=== PATIENT | female | born 1990 | race African-American/Black ===

== ENCOUNTER 2020-08-19 04:02 | Emergency (ER) | payer OTHER, SELFPAY ==
[2020-08-19 04:15] VITALS: BP 127/78; BP 140/82; PULSE 85; PULSE 96; RESP 16; TEMP 36.8; O2SAT 100; O2SAT 97; BMI 31.1
--- NOTE | 2020-08-19 04:37 | ED.ABDPAIN ---
HPI - Abdominal Pain General Chief Complaint: Abdominal Pain Stated Complaint: N/V X 2 WEEKS Time Seen by Provider: 08/19/20 04:23 Source: patient Mode of arrival: ambulatory History of Present Illness MD elicited complaint: abdominal pain Pertinent past history: gastritis Onset (ago): week(s) (2) Pain Consistency: constant Location: diffuse Severity: mild Pain scale (0-10): 5 Quality: cramping Exacerbating factors: eating Associated symptoms: nausea, vomiting, diarrhea, fever, chills and constipation Related Data Home Medications Medication Instructions Recorded Confirmed lorazepam 1 tab PO DAILY PRN 08/19/20 08/19/20 omeprazole 1 cap PO DAILY 08/19/20 08/19/20 Previous Rx's Medication Instructions Recorded dicyclomine 20 mg PO BID #14 tab 08/19/20 ondansetron 4 mg PO Q8H PRN 5 Days #15 tab 08/19/20 tramadol [Ultram] 50 mg PO DAILY #7 tab 08/19/20 Allergies Allergy/AdvReac Type Severity Reaction Status Date / Time penicillin V Allergy Unknown Swelling Verified 07/23/20 00:00 Penicillins [PENICILLINS] Allergy Unknown HIVES AND Unverified 08/05/20 19:24 SWELLING Sulfa (Sulfonamide Allergy Unknown Anaphylaxis Verified 07/23/20 00:00 Antibiotics) sulfamethoxazole Allergy Unknown HALLUCINATI Unverified 08/05/20 19:24 [From BACTRIM] ONS/HIVES trimethoprim [From BACTRIM] Allergy Unknown HALLUCINATI Unverified 08/05/20 19:24 ONS/HIVES Review of Systems Review of Systems Yes all other systems are reviewed and are negative Eyes: Denies eye discharge, Denies dry eyes, Denies irritation and Denies itchy eyes Cardiovascular: Denies painful fingertips, Denies diaphoresis, Denies syncope, Denies leg ulcers and Denies leg edema Respiratory: Denies no additional respiratory complaints and Denies hemoptysis Genitourinary: Denies dysuria, Denies pelvic pain, Denies urinary incontinence, Reports urinary hesitancy and Denies urinary urgency Denies syncope Allergic/Immunologic: Denies itchy eyes Physical Exam Vital Signs and I&O and Narrative: Vital Signs and I&O: Vital Signs Temp 98.2 F 08/19/20 05:49 Pulse 83 08/19/20 05:49 Resp 16 08/19/20 05:49 BP 122/68 08/19/20 05:49 Pulse Ox 100 08/19/20 04:15 Intake & Output 08/18/20 08/19/20 08/19/20 18:59 06:59 18:59 Intake Total 1000 / 1000 Balance 1000 / 1000 Weight 104 kg Intake: Intake, IV Amoun t 1000 / 1000 0.9 % Sodium C hloride 1,000 ml 1000 / 1000 @ 999 mls/hr I VCONT .Q1H1M COUNTS INCLUDE 234 BEDS AT THE [facility] Rx#:[id number] Body Mass Index 31.1 Const: General: cooperative, comfortable, no acute distress and anxious; No in distress Orientation/consciousness: oriented to person, oriented to place, oriented to time and patient oriented x3 HENMT: Head: Yes normal to inspection Eyes: General: appearance normal, both eyes and all related structures Neck: Neck: Yes normal visual inspection Chest: Chest palpation & inspection: normal inspection of the chest and normal palpation of entire chest wall Resp: Effort & Inspection: normal respiratory effort Cardio: Jugular venous distension: no JVD Rate: regular rate Bruits: no abdominal aortic bruits GI: Inspection: Yes normal to inspection, No abdominal wall ecchymosis, No Abdominal wall edema and No distended Palpation (GI): No Abdominal aortic bruit present Percussion: Yes normal to percussion Auscultation: normal bowel sounds : General: Yes no CVA tenderness Back/Spine/Pelvis: Back: no CVA tenderness Skin: General skin exam: no rashes or lesions noted Neuro: General: oriented to person, oriented to place, oriented to time and patient oriented x3 Extrem: General: Yes normal to inspection Psych: Appearance: grossly normal Course Reevaluation(s) Reevaluation #1: pt resting , No distress Time: 05:09 [facility] - Abdominal Pain Lab Data Result diagrams: 08/19/20 04:45 08/19/20 04:45 Labs: Lab Results 08/19/20 08/19/20 08/19/20 Range/Units 04:45 04:45 04:45 WBC 7.4 (4.8-10.8) X10*3/uL RBC 4.38 (4.20-5.50) X10*6/uL Hgb 11.8 L (12.0-16.0) g/dl Hct 37.2 (37-47) % MCV 84.9 (80-98) fL MCH 26.9 L (27.0-33.0) pg MCHC 31.7 (31.0-35.0) g/dl RDW 14.2 (11.0-16.0) % Plt Count 296 (160-400) X10*3/uL MPV 10.2 (9.4-12.3) fL Immature Gran % (Auto) 0.4 (0.0-0.4) % Neut % (Auto) 57.4 (45-73) % Lymph % (Auto) 34.6 (20-40) % Hunt % (Auto) 5.8 (2-11) % Eos % (Auto) 1.5 (0-4) % Baso % (Auto) 0.3 (0-2) % Neut # (Auto) 4.3 (2.0-8.3) X10*3/uL Lymph # (Auto) 2.6 (1.2-4.9) X10*3/uL Hunt # (Auto) 0.4 (0.1-1.2) X10*3/uL Eos # (Auto) 0.1 (0.0-0.4) X10*3/uL Baso # (Auto) 0.0 (0.0-0.2) X10*3/uL Abs Immat Gran (auto) 0.03 (0.00-0.03) X10*3/uL Absolute Nucleated RBC 0.000 (0.0-0.012) X10*3/uL Nucleated RBC % (auto) 0.0 (0.0-0.2) /100WBC Sodium 137 (135-145) mmol/L Potassium 4.3 (3.3-5.1) mmol/l Chloride 106 (96-108) mmol/L Carbon Dioxide 23 (22-29) mmol/L Anion Gap 12 (12-20) BUN 10 (9-16) mg/dL Creatinine 0.79 (0.5-1.4) mg/dL Estim Creat Clear Calc 140.4 Estimated GFR > 60 Random Glucose 83 (60-115) mg/dL Calcium 9.2 (8.4-10.2) mg/dL Total Bilirubin 0.3 (0.0-1.0) mg/dL Direct Bilirubin < 0.2 (0.0-0.5) mg/dL AST 14 (5-31) U/L ALT 8 (0-31) U/L Alkaline Phosphatase 62 (39-117) U/L Total Protein 7.2 (6.5-8.0) g/dL Albumin 4.3 (3.5-5.0) g/dL Lipase 39 (8-78) U/L Urine Color YELLOW Urine Appearance CLEAR Urine pH 6.0 (5.0-8.0) Ur Specific Blair 1.015 (1.005-1.025) Urine Protein NEG (NEG-TRACE) MG/DL Urine Glucose (UA) NEG (NEG) MG/DL Urine Ketones NEG (NEG) MG/DL Urine Blood NEG (NEG) Urine Nitrite NEG (NEG) Ur Leukocyte Esterase NEG (NEG) Urine Test NEG (NEGATIVE) ECG Data Interpretation: Discharge Plan Discharge Clinical Impression: Abdominal pain Qualifiers: Abdominal location: left upper quadrant Qualified Code(s): R10.12 - Left upper quadrant pain Gastritis Qualifiers: Gastritis type: unspecified gastritis Chronicity: acute Gastritis bleeding: without bleeding Qualified Code(s): K29.00 - Acute gastritis without bleeding Patient Disposition: Home, Self-Care Instructions: Gastritis (ED), Abdominal Pain (ED) Prescriptions: New tramadol [Ultram] 50 mg tablet 50 mg PO DAILY Qty: 7 RF: 0 dicyclomine 20 mg tablet 20 mg PO BID Qty: 14 RF: 0 ondansetron 4 mg tablet,disintegrating 4 mg PO Q8H PRN (Reason: nausea and vomiting) 5 Days Qty: 15 RF: 0 No Action omeprazole 20 mg capsule,delayed release(DR/EC) 1 cap PO DAILY RF: 0 lorazepam 1 mg tablet 1 tab PO DAILY PRN (Reason: anxiety) RF: 0 Referrals: Romina Allen MD [Physician] - 2 days PMF Past Medical History [facility] Narrative: Denies Significant Family Hx Source: nursing notes reviewed Medical History Anxiety Social History Social History (Updated 08/19/20 @ 04:41 by Armen Mcarthur DO) Household Members: Family Alcohol intake: never Smoking Status: Never smoker Smoked in Last 30 Days: No Use of substances other than those prescribed or required for medical reasons: No Advance Directives: No Advance Directives Information Provided: No
[2020-08-19] MEDS: ondansetron HCL 4 MG/2 ML VIAL IVPUSH (04:59)
[2020-08-19] MEDS: Ketorolac Tromethamine 30 MG/ML VIAL IVPUSH (04:59)
[2020-08-19] MEDS: 0.9 % Sodium Chloride 1,000 ML 999 ML IVCONT (04:59)
[2020-08-19 05:07] LABS: MANUAL DIFF FLAG NO
[2020-08-19] MEDS: Famotidine/PF 20 MG/2 ML VIAL IVPUSH (05:07)
[2020-08-19 05:14] LABS: Basophils Percent Auto 0.3 % (0-2); Eosinophils Absolute Auto 0.1 X10*3/uL (0.0-0.4); Eosinophils Percent Auto 1.5 % (0-4); Hematocrit 37.2 % (37-47); Hemoglobin 11.8 g/dl (12.0-16.0); Imm Gran Abs Auto 0.03 X10*3/uL (0.00-0.03); Imm Gran Pct Auto 0.4 % (0.0-0.4); Lymphocytes Absolute Auto 2.6 X10*3/uL (1.2-4.9); Lymphocytes Percent Auto 34.6 % (20-40); Mean Corpuscular HGB Conc 31.7 g/dl (31.0-35.0); Mean Corpuscular Hemoglobin 26.9 pg (27.0-33.0); Mean Corpuscular Volume 84.9 fL (80-98); Mean Platelet Volume 10.2 fL (9.4-12.3); Monocytes Absolute Auto 0.4 X10*3/uL (0.1-1.2); Monocytes Percent Auto 5.8 % (2-11); Neutrophils Absolute Auto 4.3 X10*3/uL (2.0-8.3); Neutrophils Percent Auto 57.4 % (45-73); Platelet Count 296 X10*3/uL (160-400); Red Blood Count 4.38 X10*6/uL (4.20-5.50); Red Cell Distribution Width 14.2 % (11.0-16.0); White Blood Count 7.4 X10*3/uL (4.8-10.8)
--- NOTE | 2020-08-19 05:14 | PC.NURSE ---
Pt able to self transfer from EMS cot onto hospital bed. Pt ambulating to the bathroom to provide urine sample with a moulton/steady gait. Urine sample obtained and sent. IV established, labs obtained and sent. at bedside, pt aware of plan of care. Medicated per EMAR. Resting in bed at this time, awaiting lab results, continue to monitor.
--- NOTE | 2020-08-19 05:15 | XR_ITS ---
EXAMINATION: KUB. CLINICAL INFORMATION: Abdominal pain. COMPARISON: None TECHNIQUE: One view KUB. FINDINGS: Jimmy gas pattern is nonspecific scattered stool and gas in colon. The small bowel loops unremarkable. No bony abnormality seen. IMPRESSION: Mild constipation. No acute process seen.
[2020-08-19 05:34] LABS: Appearance Urine CLEAR; Color Urine YELLOW; Glucose Urine UA NEG (NEG); Leukocyte Esterase Urine NEG (NEG); Nitrite Urine NEG (NEG); Specific Gravity - Urine 1.015 (1.005-1.025); UACC Culture Trigger NO; UPreg QC Valid YES; Urine Blood NEG (NEG); Urine Ketones NEG (NEG); Urine Pregnancy NEG (NEGATIVE); Urine Protein NEG (NEG-TRACE)
[2020-08-19 05:36] LABS: Alanine Aminotransferase 8 U/L (0-31); Albumin Level 4.3 g/dL (3.5-5.0); Alkaline Phosphatase 62 U/L (39-117); Anion Gap 12 (12-20); Aspartate Amino Transferase 14 U/L (5-31); Bilirubin Direct < 0.2 mg/dL (0.0-0.5); Bilirubin Total 0.3 mg/dL (0.0-1.0); Blood Urea Nitrogen 10 mg/dL (9-16); Calcium 9.2 mg/dL (8.4-10.2); Carbon Dioxide 23 mmol/L (22-29); Chloride 106 mmol/L (96-108); Creatinine Clr Calc Pharmacy 140.4; Estimated Glomerular Filt Rate > 60; Glucose Random 83 mg/dL (60-115); Lipase 39 U/L (8-78); Potassium 4.3 mmol/l (3.3-5.1); Sodium 137 mmol/L (135-145); Total Protein 7.2 g/dL (6.5-8.0)
--- NOTE | 2020-08-19 05:42 | PC.NURSE ---
Off to XRay.
--- NOTE | 2020-08-19 05:47 | PC.NURSE ---
Returns from XRay on hospital bed. Provided with warm blankets for comfort. VSS.
[2020-08-19 05:49] VITALS: BP 122/68; PULSE 83; RESP 16; TEMP 36.8
--- NOTE | 2020-08-19 06:14 | PC.NURSE ---
Pt reports her pain decreased to a 6/10. Awaiting XRay results. Continue to monitor.
--- NOTE | 2020-08-19 08:13 | PC.NURSE ---
pt in room on her phone at time of shift report no active vomiting reports abd pain, nooutward distress noted plan is for discharge
== END 2020-08-19 07:35 | disposition home or self-care (01) ==
PROVIDERS: Emergency Provider Emergency Medicine
DX: K29.00 Acute gastritis without bleeding (principal)
CPT/HCPCS: 36415; 74019; 80048; 80076; 81003; 81025; 83690; 85025; 96361; 96374; 96375; 99284

== ENCOUNTER 2020-08-29 02:46 | Emergency (ER) | payer OTHER, SELFPAY ==
[2020-08-29 02:55] VITALS: BP 136/89; PULSE 78; RESP 16; TEMP 37.1; O2SAT 98; BMI 31.1
--- NOTE | 2020-08-29 03:22 | ED.NECK ---
HPI - Neck Pain/Injury General Chief Complaint: Neck Pain/Injury Stated Complaint: neck pain Time Seen by Provider: 08/29/20 03:14 Source: patient Mode of arrival: EMS History of Present Illness HPI Narrative: patient states of right-sided intermittent neck pain for the past month. Patient states feels like it is bea. Denies trauma history. denies fevers or chills. Denies drooling or headache. Patient states intermittent pain and tonight it got so bad that cannot wait for her primary care doctor's office to open in 2 days. MD complaint: neck pain Severity: moderate Severity scale (1-10): 5 Quality: sharp Duration: intermittent Exacerbating factors: movement of neck Related Data Home Medications Medication Instructions Recorded Confirmed lorazepam 1 tab PO DAILY PRN 08/19/20 08/19/20 omeprazole 1 cap PO DAILY 08/19/20 08/19/20 Previous Rx's Medication Instructions Recorded dicyclomine 20 mg PO BID #14 tab 08/19/20 ondansetron 4 mg PO Q8H PRN 5 Days #15 tab 08/19/20 tramadol [Ultram] 50 mg PO DAILY #7 tab 08/19/20 cyclobenzaprine 10 mg PO BID PRN #10 tab 08/29/20 naproxen 500 mg PO Q8H PRN #20 tab 08/29/20 Allergies Allergy/AdvReac Type Severity Reaction Status Date / Time penicillin V Allergy Unknown Swelling Verified 07/23/20 00:00 Penicillins [PENICILLINS] Allergy Unknown HIVES AND Unverified 08/05/20 19:24 SWELLING Sulfa (Sulfonamide Allergy Unknown Anaphylaxis Verified 07/23/20 00:00 Antibiotics) sulfamethoxazole Allergy Unknown HALLUCINATI Unverified 08/05/20 19:24 [From BACTRIM] ONS/HIVES trimethoprim [From BACTRIM] Allergy Unknown HALLUCINATI Unverified 08/05/20 19:24 ONS/HIVES Review of Systems Review of Systems: Constitutional : No Weight loss, No Fever, No Chills, No Night Sweats, No Fatigue, No Malaise ENT/Mouth : No Hearing loss, No Ear Pain, No Nasal Congestion, No Sinus Pain, No Hoarseness, No sore throat, No Rhinorrhea, No Swallowing Difficulty positive neck pain Eyes: No Eye Pain, No Swelling, No Redness, No Foreign Body, No Discharge, No Vision Changes Cardiovascular : No Chest Pain, No SOB, No Dyspnea on Exertion, No Orthopnea, No Edema, No Palpitations Respiratory : No Cough, No Sputum, No Wheezing, No Smoke Exposure, No Dyspnea Gastrointestinal : No Nausea, No Vomiting, No Diarrhea, No Constipation, No abdominal Pain, No Hematochezia, No Melena Genitourinary : no irregular bleeding, No Dysuria, No Urinary Frequency, No Hematuria, No Urinary Incontinence, No Urgency, No Flank Pain, No Urinary Flow Changes, No Hesitancy Musculoskeletal : No joint pain, No Myalgias, No Joint Swelling Skin : No Skin Lesions, No rash Neuro : No Weakness, No Numbness, No Paresthesias, No Loss of Consciousness, No Dizziness, No Headache Psych : No Anxiety/Panic, No Depression, No SI/HI/AH/VH, No Social Issues, Heme/Lymph: No Bruising, No Bleeding,No Lymphadenopathy Endocrine : No Polyuria, No Polydipsia, No Temperature Intolerance [facility] Past Medical History Medical History Anxiety Family History Family History (Updated 08/29/20 @ 03:23 by Armen Mcarthur DO) Other Family history non-contributory Social History Social History Household Members: Family Alcohol intake: never Smoking Status: Never smoker Use of substances other than those prescribed or required for medical reasons: No Advance Directives: No Advance Directives Information Provided: No Physical Exam Vital Signs: Vital Signs: Vital Signs Temp Pulse Resp BP Pulse Ox 08/29/20 02:55 98.8 F 78 16 136/89 98 Body Mass Index 31.1 vital signs reviewed Appearance: Alert. Oriented X3. No acute distress. Eyes: Pupils equal, round and reactive to light. ENT: Pharynx normal. Neck: Normal inspection. right-sided lateral tonicity increased to muscles. No lymph nodes noted. No crepitus CVS: Normal heart rate and rhythm. Pulses normal. Normal S1 and S2 Respiratory: No respiratory distress. Breath sounds normal. No Wheezing. No rales Abdomen: Soft and nontender. No rigidity. No distention. good BS x4 Skin: Skin warm and dry. Normal skin color. Normal skin turgor. Extremities: No lower extremity edema. Neurovascular intact to all extremities. No Lacerations. No Rash Neuro: Oriented X 3. No motor deficit. No sensory deficit. Moving all extermities. No slurred speech. MDM - Neck Pain/Injury MDM Narrative Medical decision making narrative: 30-year-old female with right-sided neck pain most likely muscular strain. Doubt at this point has meningitis, or carotid dissection Discharge Plan Discharge Clinical Impression: Strain of neck muscle Patient Disposition: Home, Self-Care Instructions: Cervical Strain (ED), Muscle Strain (ED) Additional Instructions: Thank you for visiting the emergency department today. If your symptoms worsen or do not resolve completely please return to the emergency department immediately or call 911. if he have any questions please call your primary care physician Prescriptions: New cyclobenzaprine 10 mg tablet 10 mg PO BID PRN (Reason: muscle spasm) Qty: 10 RF: 0 naproxen 500 mg tablet 500 mg PO Q8H PRN (Reason: pain) Qty: 20 RF: 0 No Action omeprazole 20 mg capsule,delayed release(DR/EC) 1 cap PO DAILY RF: 0 lorazepam 1 mg tablet 1 tab PO DAILY PRN (Reason: anxiety) RF: 0 tramadol [Ultram] 50 mg tablet 50 mg PO DAILY Qty: 7 RF: 0 dicyclomine 20 mg tablet 20 mg PO BID Qty: 14 RF: 0 ondansetron 4 mg tablet,disintegrating 4 mg PO Q8H PRN (Reason: nausea and vomiting) 5 Days Qty: 15 RF: 0 Referrals: [facility] [Provider Group] - 2 days
[2020-08-29] MEDS: NaPROXEN 500 MG TABLET PO (03:35)
[2020-08-29] MEDS: Cyclobenzaprine HCl 10 MG TABLET PO (03:35)
== END 2020-08-29 03:44 | disposition home or self-care (01) ==
PROVIDERS: Emergency Provider Emergency Medicine; PCP Internal Medicine
DX: S16.1XXA Strain of muscle, fascia and tendon at neck level, initial encounter (principal); X58.XXXA Exposure to other specified factors, initial encounter; Y93.9 Activity, unspecified; Y92.9 Unspecified place or not applicable; Y99.9 Unspecified external cause status
CPT/HCPCS: 99283; 99284

== ENCOUNTER 2020-09-02 16:41 | Outpatient (REF) | payer OTHER, SELFPAY ==
--- NOTE | 2020-09-02 16:52 | US_ITS ---
EXAMINATION: NECK ULTRASOUND CLINICAL INFORMATION: Pelvic pain COMPARISON: Previous exam February 2020 TECHNIQUE: Transabdominal and transvaginal pelvic ultrasound was performed. Transvaginal exam was performed for better visualization of the uterus and ovaries. FINDINGS: The uterus is anteverted and measures 8.9 x 3.6 x 5.6 cm in dimension. No focal uterine lesion is seen. Endometrial thickness is normal estimated at 0.6 cm. The ovaries are normal in size. The right ovary measures 3.1 x 1.9 x 1.5 cm and the left ovary measures 2.6 x 2.3 x 1.8 cm. There are multiple small simple cysts or follicles seen. There is no fluid in the pelvis. IMPRESSION: Unremarkable exam.
== END 2020-09-02 16:42 | disposition home or self-care (01) ==
LOC: HO.US 16:41
PROVIDERS: Visit Provider Obstetrics & Gynecology
DX: R10.2 Pelvic and perineal pain (principal)
CPT/HCPCS: 76830; 76856

== ENCOUNTER 2020-10-16 08:32 | Emergency (ER) | payer OTHER, SELFPAY ==
[2020-10-16 08:41] VITALS: BP 122/91; PULSE 89; RESP 17; TEMP 36.6; O2SAT 99; BMI 30.5
--- NOTE | 2020-10-16 09:14 | ED.GENADULT ---
HPI - General Adult General Chief complaint: General Medical Stated complaint: SWOLLEN LIP Time Seen by Provider: 10/16/20 08:40 Source: patient Mode of arrival: ambulatory Limitations: no limitations History of Present Illness HPI narrative: 30 y/o female presenting with painful bump on her lower lip for the last few days. She states it came out of nowhere and has been getting worse. It is painful and swollen. She denies injury. She denies sore throat. No history of cold sores in the past. No known exposure. Denies genital lesions. MD complaint: cold sore Onset (ago): day(s) (6) Location: face Radiation: non-radiation Severity: moderate Severity scale (1-10): 5 Quality: burning Pain Consistency: constant Relieving factors: none Exacerbating factors: none Associated symptoms: denies other symptoms Treatments prior to arrival: none Related Data Home Medications Medication Instructions Recorded Confirmed lorazepam 1 tab PO DAILY PRN 08/19/20 08/19/20 omeprazole 1 cap PO DAILY 08/19/20 08/19/20 Previous Rx's Medication Instructions Recorded dicyclomine 20 mg PO BID #14 tab 08/19/20 ondansetron 4 mg PO Q8H PRN 5 Days #15 tab 08/19/20 tramadol [Ultram] 50 mg PO DAILY #7 tab 08/19/20 cyclobenzaprine 10 mg PO BID PRN #10 tab 08/29/20 naproxen 500 mg PO Q8H PRN #20 tab 08/29/20 acyclovir 400 mg PO TID #21 tab 10/16/20 Allergies Allergy/AdvReac Type Severity Reaction Status Date / Time penicillin V Allergy Unknown Swelling Verified 07/23/20 00:00 Penicillins [PENICILLINS] Allergy Unknown HIVES AND Unverified 08/05/20 19:24 SWELLING Sulfa (Sulfonamide Allergy Unknown Anaphylaxis Verified 07/23/20 00:00 Antibiotics) sulfamethoxazole Allergy Unknown HALLUCINATI Unverified 08/05/20 19:24 [From BACTRIM] ONS/HIVES trimethoprim [From BACTRIM] Allergy Unknown HALLUCINATI Verified 10/16/20 08:43 ONS/HIVES Review of Systems Review of Systems: Constitutional: No Fever, No Chills ENT/Mouth: No sore throat, No Swallowing Difficulty Respiratory No dyspnea Genitourinary: No vaginal lesions Musculoskeletal: No joint pain, No Myalgias Skin: + Skin Lesions (lip), No rash Neuro: No Headache Psych: No Anxiety/Panic, No Depression Heme/Lymph: No Lymphadenopathy PMFSH Past Medical History Attestation statement: The following information was validated with the patient. Medical History Anxiety Family History Family History (Updated 08/29/20 @ 03:23 by Armen Mcarthur DO) Other Family history non-contributory Social History Social History Household Members: Family Alcohol intake: never Smoking Status: Never smoker Advance Directives: No Advance Directives Information Provided: No Physical Exam Vital Signs: Vital Signs: Last Vital Signs Temp 97.9 F 10/16/20 08:41 Pulse 89 10/16/20 08:41 Resp 17 10/16/20 08:41 BP 122/91 H 10/16/20 08:41 Pulse Ox 99 10/16/20 08:41 Body Mass Index 30.5 Appearance: Alert. Oriented X3. No acute distress. HEENT: lower lip with large tender fluid filled blisters with mild yellowing CVS: Normal heart rate and rhythm. Pulses normal. Respiratory: No respiratory distress. Skin: Skin warm and dry. Normal skin color. Normal skin turgor. No rashes. 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 Patient counseled and all questions were answered Critical Care Time Critical Care Time Critical Care Time: No Discharge Plan Discharge Clinical Impression: Cold sore Patient Disposition: Home, Self-Care Instructions: Oral Herpes Simplex Virus Infections (ED) Additional Instructions: Start taking the antiviral medication DEEPTHI. You can also use topical medication found over the counter - Abreva for cold sores If you get a recurrent cold sore in the future recommend reaching out to your doctor right away to start treatment. Follow up with your doctor. Prescriptions: New acyclovir 400 mg tablet 400 mg PO TID Qty: 21 RF: 0 No Action omeprazole 20 mg capsule,delayed release(DR/EC) 1 cap PO DAILY RF: 0 lorazepam 1 mg tablet 1 tab PO DAILY PRN (Reason: anxiety) RF: 0 tramadol [Ultram] 50 mg tablet 50 mg PO DAILY Qty: 7 RF: 0 dicyclomine 20 mg tablet 20 mg PO BID Qty: 14 RF: 0 ondansetron 4 mg tablet,disintegrating 4 mg PO Q8H PRN (Reason: nausea and vomiting) 5 Days Qty: 15 RF: 0 cyclobenzaprine 10 mg tablet 10 mg PO BID PRN (Reason: muscle spasm) Qty: 10 RF: 0 naproxen 500 mg tablet 500 mg PO Q8H PRN (Reason: pain) Qty: 20 RF: 0 Discharge Date/Time: 10/16/20 09:26
== END 2020-10-16 09:26 | disposition home or self-care (01) ==
PROVIDERS: Emergency Provider Internal Medicine; PCP Internal Medicine
DX: B00.1 Herpesviral vesicular dermatitis (principal); Z79.899 Other long term (current) drug therapy
CPT/HCPCS: 99283

== ENCOUNTER → 2020-11-10 15:34 | Outpatient (BNVA) | payer OTHER, SELFPAY | PROVIDERS: PCP Internal Medicine; Visit Provider Nurse Practitioner | DX: Z76.89 Persons encountering health services in other specified circumstances (principal) ==

== ENCOUNTER 2020-11-11 14:38 | Outpatient (REF) | payer OTHER, SELFPAY | END 2020-11-11 14:39 | disposition home or self-care (01) | LOC: HO.LAB 14:38 | PROVIDERS: PCP Internal Medicine; Visit Provider Internal Medicine | DX: Z20.828 Contact with and (suspected) exposure to other viral communicable diseases (principal); R09.89 Other specified symptoms and signs involving the circulatory and respiratory systems | CPT/HCPCS: U0003 ==

== ENCOUNTER 2020-11-19 11:30 | Emergency (ER) | payer OTHER, SELFPAY ==
[2020-11-19 11:35] VITALS: BP 135/80; BP 168/88; PULSE 88; PULSE 97; RESP 18; TEMP 36.8; O2SAT 97; O2SAT 98; BMI 31.1
--- NOTE | 2020-11-19 11:53 | ED_ITS ---
HPI - General Adult General Chief complaint: General Medical Stated complaint: covid symptoms Time Seen by Provider: 11/19/20 11:53 History of Present Illness HPI narrative: For 1 week patient has had a cough that is occasionally productive of whitish sputum, sore throat body aches and fatigue, no shortness of breath no nausea no vomiting She did have a COVID test several days ago which was negative but symptoms have not improved MD complaint: Patient complains of sore throat cough body aches fatigue for several days, Related Data Home Medications Medication Instructions Recorded Confirmed lorazepam 1 tab PO DAILY PRN 08/19/20 11/18/20 Previous Rx's Medication Instructions Recorded dicyclomine 20 mg PO BID #14 tab 08/19/20 ondansetron 4 mg PO Q8H PRN 5 Days #15 tab 08/19/20 tramadol [Ultram] 50 mg PO DAILY #7 tab 08/19/20 cyclobenzaprine 10 mg PO BID PRN #10 tab 08/29/20 naproxen 500 mg PO Q8H PRN #20 tab 08/29/20 acyclovir 400 mg PO TID #21 tab 10/16/20 famotidine 40 mg tablet 40 mg PO BID #60 tab 11/10/20 sennosides 8.6 mg capsule 17.2 mg PO BEDTIME 30 Days #60 cap 11/10/20 simethicone 180 mg capsule 180 mg PO QID 30 Days #120 cap 11/10/20 azithromycin 250 mg tablet See Rx Instructions PO .COMPLEX #6 11/16/20 tab azithromycin 250 mg tablet See Rx Instructions PO .COMPLEX #6 11/18/20 tab azithromycin [Zithromax Z-Otilio] 250 mg PO DAILY 5 Days #5 tab 11/19/20 ibuprofen 600 mg PO Q6H PRN #20 tab 11/19/20 Allergies Allergy/AdvReac Type Severity Reaction Status Date / Time Penicillins [PENICILLINS] Allergy Unknown HIVES AND Verified 11/18/20 10:26 SWELLING Sulfa (Sulfonamide Allergy Unknown Anaphylaxis Verified 11/18/20 10:26 Antibiotics) sulfamethoxazole Allergy Unknown HALLUCINATI Verified 11/18/20 10:26 [From BACTRIM] ONS/HIVES trimethoprim [From BACTRIM] Allergy Unknown HALLUCINATI Verified 11/18/20 10:26 ONS/HIVES Review of Systems Review of Systems: Negative for fever chills dizziness weakness confusion headache difficulty swallowing, no shortness of breath no chest pain no abdominal pain no nausea no vomiting no rash Yes all other systems are reviewed and are negative [facility]LY [facility] Past Medical History Source: nursing notes reviewed Medical History (Updated 11/20/20 @ 00:00 by Britney Hendricks) Anxiety Surgical History History of esophagogastroduodenoscopy (EGD) History of tonsillectomy History of wisdom tooth extraction (~09/2020) Family History Family History Father No problems noted. Mother Breast cancer Other Family history non-contributory Social History Social History Household Members: Family Alcohol intake: never Smoking Status: Never smoker Smoked in Last 30 Days: No Use of substances other than those prescribed or required for medical reasons: No Advance Directives: No Advance Directives Information Provided: Yes Physical Exam Vital Signs: Vital Signs: Last Vital Signs Temp 97.9 F 11/19/20 16:58 Pulse 80 11/19/20 16:58 Resp 16 11/19/20 16:58 BP 109/72 11/19/20 16:58 Pulse Ox 100 11/19/20 16:58 Body Mass Index 31.1 General appearance no acute distress, a and O x3, tired appearing She is anicteric no pallor, the pharynx was moist with no redness, uvula midline, no exudate The voice was normal The neck was supple without lymphadenopathy The chest was clear to auscultation bilaterally with full symmetric equal breath sounds The heart rate and rhythm regular no murmur Abdomen nontender Extremities no calf swelling or tenderness, no edema Skin no rash Neuro no focal deficit Course Course Course Narrative: Patient was hydrated with a L of fluid, chest x-ray was normal, patient's rapid COVID test today was positive Patient was able to hydrate on her own and tolerate p.o. and was safe for discharge and was discharged home with instructions to use care in wearing a mask and try to stay as clear as possible of other people as it is very contagious Medical Decision Making Lab Data Lab results reviewed: Yes I reviewed the patient's lab results. Result diagrams: 11/19/20 13:25 11/19/20 14:34 Labs: Lab Results 11/19/20 11/19/20 11/19/20 Range/Units 13:25 13:25 13:26 WBC 4.0 L (4.8-10.8) X10*3/uL RBC 4.42 (4.20-5.50) X10*6/uL Hgb 12.3 (12.0-16.0) g/dl Hct 37.3 (37-47) % MCV 84.4 (80-98) fL MCH 27.8 (27.0-33.0) pg MCHC 33.0 (31.0-35.0) g/dl RDW 14.3 (11.0-16.0) % Plt Count 274 (160-400) X10*3/uL MPV 10.4 (9.4-12.3) fL Immature Gran % (Auto) 0.2 (0.0-0.4) % Neut % (Auto) 56.1 (45-73) % Lymph % (Auto) 30.3 (20-40) % [place] % (Auto) 11.7 H (2-11) % Eos % (Auto) 1.2 (0-4) % Baso % (Auto) 0.5 (0-2) % Lymph # (Auto) 1.2 (1.2-4.9) X10*3/uL [place] # (Auto) 0.5 (0.1-1.2) X10*3/uL Eos # (Auto) 0.1 (0.0-0.4) X10*3/uL Baso # (Auto) 0.0 (0.0-0.2) X10*3/uL Abs Immat Gran (auto) 0.01 (0.00-0.03) X10*3/uL Absolute Neuts (auto) 2.3 (2.0-8.3) X10*3/uL Absolute Nucleated RBC 0.000 (0.0-0.012) X10*3/uL Nucleated RBC % (auto) 0.0 (0.0-0.2) /100WBC Sodium Cancelled Potassium Cancelled Chloride Cancelled Carbon Dioxide Cancelled Anion Gap Cancelled BUN Cancelled Creatinine Cancelled Estim Creat Clear Calc Cancelled Estimated GFR Cancelled Random Glucose Cancelled Calcium Cancelled Urine Test (NEGATIVE) Coronavirus (PCR) POSITIVE A (Negative) Influenza Type A (PCR) NEGATIVE (Negative) Influenza Type B (PCR) NEGATIVE (Negative) RSV RNA Qual (PCR) NEGATIVE (Negative) 11/19/20 11/19/20 Range/Units 13:37 14:34 WBC (4.8-10.8) X10*3/uL RBC (4.20-5.50) X10*6/uL Hgb (12.0-16.0) g/dl Hct (37-47) % MCV (80-98) fL MCH (27.0-33.0) pg MCHC (31.0-35.0) g/dl RDW (11.0-16.0) % Plt Count (160-400) X10*3/uL MPV (9.4-12.3) fL Immature Gran % (Auto) (0.0-0.4) % Neut % (Auto) (45-73) % Lymph % (Auto) (20-40) % [place] % (Auto) (2-11) % Eos % (Auto) (0-4) % Baso % (Auto) (0-2) % Lymph # (Auto) (1.2-4.9) X10*3/uL [place] # (Auto) (0.1-1.2) X10*3/uL Eos # (Auto) (0.0-0.4) X10*3/uL Baso # (Auto) (0.0-0.2) X10*3/uL Abs Immat Gran (auto) (0.00-0.03) X10*3/uL Absolute Neuts (auto) (2.0-8.3) X10*3/uL Absolute Nucleated RBC (0.0-0.012) X10*3/uL Nucleated RBC % (auto) (0.0-0.2) /100WBC Sodium 140 Potassium 4.0 Chloride 106 Carbon Dioxide 26 Anion Gap 12 BUN 4 L D Creatinine 0.69 Estim Creat Clear Calc 161.1 Estimated GFR > 60 Random Glucose 87 Calcium 8.5 D Urine Test NEGATIVE (NEGATIVE) Coronavirus (PCR) (Negative) Influenza Type A (PCR) (Negative) Influenza Type B (PCR) (Negative) RSV RNA Qual (PCR) (Negative) Discharge Plan Discharge Clinical Impression: COVID-19 Patient Disposition: Home, Self-Care Additional Instructions: COVID testing was positive so you have a COVID infection and may be very contagious to others so wear mask and keep a distance as best you can Return any time any worse condition or concerns As you have the cough we prescribed antibiotic Zithromax for possible bronchitis Prescriptions: New azithromycin [Zithromax Z-Otilio] 250 mg tablet 250 mg PO DAILY 5 Days Qty: 5 RF: 0 ibuprofen 600 mg tablet 600 mg PO Q6H PRN (Reason: pain) Qty: 20 RF: 0 No Action azithromycin 250 mg tablet See Rx Instructions PO .COMPLEX Qty: 6 RF: 0 lorazepam 1 mg tablet 1 tab PO DAILY PRN (Reason: anxiety) RF: 0 tramadol [Ultram] 50 mg tablet 50 mg PO DAILY Qty: 7 RF: 0 dicyclomine 20 mg tablet 20 mg PO BID Qty: 14 RF: 0 ondansetron 4 mg tablet,disintegrating 4 mg PO Q8H PRN (Reason: nausea and vomiting) 5 Days Qty: 15 RF: 0 cyclobenzaprine 10 mg tablet 10 mg PO BID PRN (Reason: muscle spasm) Qty: 10 RF: 0 naproxen 500 mg tablet 500 mg PO Q8H PRN (Reason: pain) Qty: 20 RF: 0 acyclovir 400 mg tablet 400 mg PO TID Qty: 21 RF: 0 azithromycin 250 mg tablet See Rx Instructions PO .COMPLEX Qty: 6 RF: 0 simethicone 180 mg capsule 180 mg PO QID 30 Days Qty: 120 RF: 3 famotidine [Pepcid] 40 mg tablet 40 mg PO BID Qty: 60 RF: 3 senna 8.6 mg capsule 17.2 mg PO BEDTIME 30 Days Qty: 60 RF: 1 Interventions: ED Discharge Assessment Last Done: 11/19/20 17:13 Discharge Date/Time: 11/19/20 17:15
--- NOTE | 2020-11-19 12:29 | XR_ITS ---
EXAMINATION: XR CHEST CLINICAL INFORMATION: Cough. COMPARISON: Chest done on 04/07/2020. TECHNIQUE: Frontal view of the chest was obtained. FINDINGS: No significant abnormality is noted involving the heart, lungs, mediastinum, bony thorax or soft tissues. XR/XR chest 1V IMPRESSION: Unremarkable examination. No significant change.
[2020-11-19] MEDS: 0.9 % Sodium Chloride 1,000 ML 999 ML IVCONT (13:21)
[2020-11-19 13:34] LABS: Basophils Percent Auto 0.5 % (0-2); Eosinophils Absolute Auto 0.1 X10*3/uL (0.0-0.4); Eosinophils Percent Auto 1.2 % (0-4); Hematocrit 37.3 % (37-47); Hemoglobin 12.3 g/dl (12.0-16.0); Imm Gran Abs Auto 0.01 X10*3/uL (0.00-0.03); Imm Gran Pct Auto 0.2 % (0.0-0.4); Lymphocytes Absolute Auto 1.2 X10*3/uL (1.2-4.9); Lymphocytes Percent Auto 30.3 % (20-40); MANUAL DIFF FLAG NO; Mean Corpuscular Hemoglobin 27.8 pg (27.0-33.0); Mean Corpuscular Volume 84.4 fL (80-98); Mean Platelet Volume 10.4 fL (9.4-12.3); Monocytes Absolute Auto 0.5 X10*3/uL (0.1-1.2); Monocytes Percent Auto 11.7 % (2-11); Neutrophils Absolute Auto 2.3 X10*3/uL (2.0-8.3); Neutrophils Percent Auto 56.1 % (45-73); Platelet Count 274 X10*3/uL (160-400); Red Blood Count 4.42 X10*6/uL (4.20-5.50); Red Cell Distribution Width 14.3 % (11.0-16.0)
[2020-11-19 13:50] LABS: UPreg QC Valid YES; Urine Pregnancy NEGATIVE (NEGATIVE)
[2020-11-19 14:43] LABS: Influenza A PCR NEGATIVE (Negative); Influenza B PCR NEGATIVE (Negative); Resp Syncy Virus RNA Qual PCR NEGATIVE (Negative)
[2020-11-19 15:01] LABS: SARS COV2 PCR INHOUSE POSITIVE (Negative)
[2020-11-19 15:21] LABS: Anion Gap 12 (12-20); Blood Urea Nitrogen 4 mg/dL (9-16); Calcium 8.5 mg/dL (8.4-10.2); Carbon Dioxide 26 mmol/L (22-29); Chloride 106 mmol/L (96-108); Creatinine Clr Calc Pharmacy 161.1; Estimated Glomerular Filt Rate > 60; Glucose Random 87 mg/dL (60-115); Sodium 140 mmol/L (135-145)
[2020-11-19 16:58] VITALS: BP 109/72; PULSE 80; RESP 16; TEMP 36.6; O2SAT 100
== END 2020-11-19 17:15 | disposition home or self-care (01) ==
PROVIDERS: Physician Assistant Medical; Emergency Provider Emergency Medicine
DX: U07.1 COVID-19 (principal)
CPT/HCPCS: 0241U; 36415; 71045; 80048; 81025; 85025; 87071; 87880; 96360; 99284

== ENCOUNTER 2021-01-11 14:03 | Outpatient (REF) | payer OTHER, SELFPAY ==
--- NOTE | ~2021-01-11 | CT_ITS ---
EXAMINATION: CT SOFT TISSUE NECK WITH CONTRAST CLINICAL INFORMATION: Localized swelling, mass, lump. COMPARISON: None available. TECHNIQUE: Following the intravenous administration of 60 mL of Omnipaque 350 intravenous contrast, helical imaging was performed in the axial plane with generation of coronal and sagittal reformatted images. This CT examination was performed using dose optimization techniques as appropriate, variously including the following: *Automated exposure control *Adjustment of mA and/or kV according to patient size (this includes techniques or standardized protocols for targeted exams where dose is matched to indication/reason for exam; i.e. 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 There is no cervical lymphadenopathy. A palpable marker has been placed and the submental region where there are a few small 5 mm submental lymph nodes. The parotid glands are homogeneous in attenuation. The submandibular glands are normal. The thyroid gland is normal. No contour abnormality or pathologic enhancement is seen within the oral cavity or pharyngeal mucosal space. No retropharyngeal fluid collection is seen. The laryngeal structures are normal. The parapharyngeal fat is preserved. The carotid sheath vasculature opacify normally. No extra mucosal soft tissue mass or fluid collection is seen. The superior mediastinum is unremarkable. The lung apices are clear. The mastoid air cells and visualized portions of the paranasal sinuses are well-aerated. The imaged portions of the brain parenchyma are unremarkable. CT/CT soft tissue neck w con IMPRESSION: - No significant soft tissue findings within the neck. No cervical lymphadenopathy. A palpable marker has been placed and the submental region where there are a few small 5 mm submental lymph nodes. 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
[2021-01-11] MEDS: iohexoL 350 MG/ML 100 ML INFUS..BTL IV (15:11)
== END 2021-01-11 14:04 | disposition home or self-care (01) ==
LOC: HO.CT 14:03
PROVIDERS: Visit Provider Otolaryngology
DX: R22.1 Localized swelling, mass and lump, neck (principal)
CPT/HCPCS: 70491; Q9967

== ENCOUNTER 2021-02-11 14:12 | Outpatient (REF) | payer OTHER, SELFPAY ==
[2021-02-12 13:25] LABS: CT PCR NOT DETECTED (Not Detect.); NG PCR NOT DETECTED (Not Detect.)
[2021-02-12 13:27] LABS: BV Int Neg Control Negative (Negative); BV Int Pos Control Positive (Positive)
== END 2021-02-11 14:13 | disposition home or self-care (01) ==
LOC: HO.LAB 14:12
PROVIDERS: PCP Physician Assistant; Visit Provider Obstetrics & Gynecology
DX: N89.8 Other specified noninflammatory disorders of vagina (principal); R30.0 Dysuria; Z11.3 Encounter for screening for infections with a predominantly sexual mode of transmission
CPT/HCPCS: 87480; 87491; 87510; 87591; 87660; 99212

== ENCOUNTER → 2021-05-26 13:17 | Outpatient (BNVA) | payer OTHER, SELFPAY | PROVIDERS: PCP Physician Assistant; Visit Provider Advanced Practice Midwife | DX: N64.4 Mastodynia (principal); R23.4 Changes in skin texture; F41.9 Anxiety disorder, unspecified; Z80.3 Family history of malignant neoplasm of breast; Z88.0 Allergy status to penicillin; Z88.2 Allergy status to sulfonamides; Z88.8 Allergy status to other drugs, medicaments and biological substances; Z79.899 Other long term (current) drug therapy | CPT/HCPCS: 99212 ==

== ENCOUNTER 2021-06-07 13:37 | Outpatient (REF) | payer OTHER, SELFPAY ==
--- NOTE | ~2021-06-07 | MM_ITS ---
EXAMINATION: MM DIAGNOSTIC DIGITAL BREAST TOMOSYNTHESIS, BILATERAL US DIAGNOSTIC ULTRASOUND BREAST, BILATERAL CLINICAL INFORMATION: 30-year-old with bilateral erythema near inframammary folds and diffuse itching. No palpable mass or discharge. No prior breast imaging. Patient currently on topical ointment for with reduced breast symptoms. Family history breast cancer, mother age 55. The lifetime risk of breast cancer based on the Tyrer-Cuzick Model is 25%. COMPARISON: None (current study represents initial baseline exam). TECHNIQUE: Digital breast tomosynthesis is performed in both the craniocaudal and mediolateral oblique views along with computer-aided detection (CAD). Synthesized 2D images are generated from the tomosynthesis. Ultrasound of both breasts is performed 3:00 through 9:00 position. Grayscale imaging and color Doppler are performed without and with harmonics. FINDINGS: There are scattered areas of fibroglandular density (ACR BI-RADS breast composition Category b). There are no significant masses, abnormal calcifications, or other abnormalities. There is no skin thickening or coarsening of the Josué's ligaments. The axilla and skin contours are unremarkable. Bilateral breast ultrasound demonstrates no cystic or solid mass in the targeted areas. No focal duct ectasia. No skin thickening or edema tracking in the soft tissue planes. Results are discussed with the patient at time of visit. MM/MM tomosynthesis diagnostic BI IMPRESSION: 1. No mammographic evidence of malignancy or focal inflammatory changes. 2. Unremarkable bilateral targeted breast ultrasound. ASSESSMENT: BI-RADS 1: Negative RECOMMENDATION: 1. Patient's current breast symptoms should continue to be managed based on the clinical impression as needed. 2. Routine annual screening mammography beginning age 40, or earlier as clinical risk factors warrant. This patient's information was entered into a reminder system with a target due date for their next mammogram.
== END 2021-06-07 13:38 | disposition home or self-care (01) ==
LOC: HO.MAMMO 13:37
PROVIDERS: PCP Physician Assistant; Visit Provider Advanced Practice Midwife
DX: N64.4 Mastodynia (principal); R21 Rash and other nonspecific skin eruption; R23.4 Changes in skin texture; Z80.3 Family history of malignant neoplasm of breast
CPT/HCPCS: 76642; 77062; 77066

== ENCOUNTER 2021-06-14 16:34 | Outpatient (REF) | payer OTHER, SELFPAY | END 2021-06-14 16:35 | disposition home or self-care (01) | LOC: HO.LAB 16:34 | PROVIDERS: Visit Provider Nurse Practitioner Family | DX: Z20.822 Contact with and (suspected) exposure to COVID-19 (principal); J32.9 Chronic sinusitis, unspecified | CPT/HCPCS: U0003; U0005 ==

== ENCOUNTER → 2021-06-21 15:22 | Outpatient (BNVA) | payer OTHER, SELFPAY | PROVIDERS: PCP Physician Assistant; Referring Provider Physician Assistant; Visit Provider Nurse Practitioner | DX: K21.9 Gastro-esophageal reflux disease without esophagitis (principal); K59.00 Constipation, unspecified; R14.0 Abdominal distension (gaseous) | CPT/HCPCS: 99212 ==

== ENCOUNTER → 2021-08-23 15:10 | Outpatient (BNVA) | payer OTHER, SELFPAY | PROVIDERS: PCP Physician Assistant; Visit Provider Nurse Practitioner ==

== ENCOUNTER 2022-01-16 13:39 | Outpatient (REF) | payer OTHER, SELFPAY ==
[2022-01-16 15:35] LABS: Hematocrit 36.6 % (37.0-47.0); Hemoglobin 11.9 g/dl (12.0-16.0); Mean Corpuscular HGB Conc 32.5 g/dl (31.0-35.0); Mean Corpuscular Hemoglobin 27.2 pg (27.0-33.0); Mean Corpuscular Volume 83.6 fL (80.0-98.0); Platelet Count 298 X10*3/uL (160-400); Red Blood Count 4.38 X10*6/uL (4.20-5.50); Red Cell Distribution Width 13.6 % (11.0-16.0); White Blood Count 6.5 X10*3/uL (4.8-10.8)
[2022-01-16 16:21] LABS: Syphilis Screen Nonreactive (Nonreactive)
[2022-01-16 16:22] LABS: Thyroid Stimulating Hormone 1.81 uIU/mL (0.32-4.0)
[2022-01-16 17:50] LABS: CT PCR NOT DETECTED (Not Detect.); NG PCR NOT DETECTED (Not Detect.)
[2022-01-17 04:51] LABS: HBc Num1 0.06 S/CO (0.00-0.79); Hepatitis B Core Antibody Nonreactive (Nonreactive); ~Hepatitis C Antibody Nonreactive (Nonreactive)
[2022-01-17 05:02] LABS: HIV AB/AG Nonreactive (Nonreactive); HIV Num 1 0.07 S/CO (0.00-0.99)
[2022-01-17 09:45] LABS: BV Int Neg Control Negative (Negative); BV Int Pos Control Positive (Positive)
== END 2022-01-16 13:40 | disposition home or self-care (01) ==
LOC: HO.LAB 13:39
PROVIDERS: PCP Physician Assistant; Visit Provider Advanced Practice Midwife
DX: Z11.4 Encounter for screening for human immunodeficiency virus [HIV] (principal); N89.8 Other specified noninflammatory disorders of vagina; N92.0 Excessive and frequent menstruation with regular cycle; N94.6 Dysmenorrhea, unspecified; Z20.2 Contact with and (suspected) exposure to infections with a predominantly sexual mode of transmission; N92.1 Excessive and frequent menstruation with irregular cycle
CPT/HCPCS: 36415; 84443; 85027; 86704; 86780; 86803; 87389; 87480; 87491; 87510; 87591; 87660; 99212

== ENCOUNTER → 2022-01-23 11:27 | Outpatient (BNVA) | payer OTHER, SELFPAY | PROVIDERS: PCP Physician Assistant; Visit Provider Advanced Practice Midwife ==

== ENCOUNTER → 2022-03-02 13:39 | Outpatient (BNVA) | payer OTHER, SELFPAY | PROVIDERS: PCP Physician Assistant; Visit Provider Advanced Practice Midwife | DX: Z30.430 Encounter for insertion of intrauterine contraceptive device (principal) | CPT/HCPCS: 58300; 81025 ==

== ENCOUNTER 2022-04-20 13:53 | Outpatient (REF) | payer OTHER, SELFPAY ==
[2022-04-21 08:48] LABS: BV Int Neg Control Negative (Negative); BV Int Pos Control Positive (Positive)
== END 2022-04-20 13:54 | disposition home or self-care (01) ==
LOC: HO.LAB 13:53
PROVIDERS: PCP Physician Assistant; Visit Provider Advanced Practice Midwife
DX: N89.8 Other specified noninflammatory disorders of vagina (principal); Z30.431 Encounter for routine checking of intrauterine contraceptive device
CPT/HCPCS: 87480; 87510; 87660; 99212

== ENCOUNTER 2022-06-01 01:46 | Emergency (ER) | payer OTHER, SELFPAY ==
[2022-06-01 01:55] VITALS: BP 132/76; PULSE 86; O2SAT 99
[2022-06-01 02:15] VITALS: BP 109/65; PULSE 70; RESP 16; TEMP 36.7; O2SAT 98; BMI 30.3
--- NOTE | 2022-06-01 02:16 | ED.NAVMDI ---
HPI - Nausea/Vomiting/Diarrhea General Chief complaint: Abdominal Pain Stated complaint: N/V Time Seen by Provider: 06/01/22 02:15 Source: patient Mode of arrival: ambulatory Limitations: no limitations History of Present Illness HPI Narrative: Patient multiple complaining including dizziness with nausea with possible STD exposure patient does have anxiety and increased abdominal upset came here for dizziness for last 4 days especially when turning the head to the right with problem in balance no ringing in the ear no headache no fever no chills no urinary complaints patient asking for HIV testing Related Data Home Medications Medication Instructions Recorded Confirmed levonorgestrel 20 mcg/24 hours (7 vaginal DAILY 04/20/22 yrs) 52 mg intrauterine device (Mirena) Previous Rx's Medication Instructions Recorded lorazepam 1 mg tablet 1 mg PO DAILY PRN anxiety 14 days 04/03/22 #14 tabs fluconazole 150 mg tablet 150 mg PO DAILY 1 dose #1 tab 04/24/22 (Diflucan) metronidazole 500 mg tablet 500 mg PO BID 7 days #14 tabs 04/24/22 famotidine 40 mg tablet (Pepcid) 40 mg PO BID 30 days #60 tabs 05/31/22 simethicone 180 mg capsule 180 mg PO .TIDAC 30 days #90 caps 05/31/22 dicyclomine 20 mg tablet 20 mg PO QID PRN abdominal pain 06/01/22 #20 tabs meclizine 25 mg tablet 25 mg PO TID PRN dizziness #20 tabs 06/01/22 metronidazole 500 mg tablet 500 mg PO BID 7 days #14 tabs 06/01/22 Allergies Allergy/AdvReac Type Severity Reaction Status Date / Time Penicillins [PENICILLINS] Allergy Unknown HIVES AND Verified 04/20/22 14:09 SWELLING Sulfa (Sulfonamide Allergy Unknown Anaphylaxis Verified 04/20/22 14:09 Antibiotics) sulfamethoxazole Allergy Unknown HALLUCINATI Verified 04/20/22 14:09 [From BACTRIM] ONS/HIVES trimethoprim [From BACTRIM] Allergy Unknown HALLUCINATI Verified 04/20/22 14:09 ONS/HIVES Review of Systems Review of Systems: Yes all other systems are reviewed and are negative PMFSH Past Medical History Medical History Anxiety Surgical History History of D&C History of esophagogastroduodenoscopy (EGD) History of tonsillectomy History of wisdom tooth extraction (~09/2020) Family History Family History Father In good health Mother Breast cancer Family/Other Stroke Brother No problems noted. Sister In good health Daughter In good health Maternal Grandmother Arthritis Other Family history non-contributory Social History Social History Household Members: Family Alcohol intake: current Alcohol intake frequency: holidays/special occasions only Patient Tobacco Use Status: Never used Tobacco Use of substances other than those prescribed or required for medical reasons: No Advance Directives: No Patient : No Sexual orientation: Lesbian/Morales/Homosexual Physical Exam Vital Signs: Vital Signs: Last Vital Signs Temp 98.1 F 06/01/22 02:15 Pulse 70 06/01/22 02:15 Resp 16 06/01/22 02:15 BP 109/65 06/01/22 02:15 Pulse Ox 98 06/01/22 02:15 O2 Del Method 06/01/22 02:15 BMI result Body Mass Index 30.3 Appearance: Alert. Oriented X3. No acute distress. Eyes: PERRLA, No Nystagmus ENT: Pharynx normal. Oral Mucosa moist Neck: Normal inspection. Neck supple. CVS: Normal heart rate and rhythm. Pulses normal. Respiratory: No respiratory distress. Equal air entry bilateral, no wheezing/rales/rhonchi Abdomen: Soft and nontender. Bowel sounds are present, no mass palpable, no CVA tenderness Skin: Skin warm and dry. Normal skin color. Normal skin turgor. Extremities: No lower extremity edema. No calf tenderness Neuro: Oriented X 3. No motor deficit. MDM - Nausea/Vomiting/Diarrhea MDM Narrative Medical decision making narrative: Patient with multiple complaints discharged home on meclizine, Flagyl, dicyclomine Lab Data Attestation: I reviewed the patient's lab results. Result diagrams: 06/01/22 02:31 06/01/22 02:30 Labs: Lab Results 06/01/22 06/01/22 06/01/22 Range/Units 02:28 02:28 02:28 WBC (4.8-10.8) X10*3/uL RBC (4.20-5.50) X10*6/uL Hgb (12.0-16.0) g/dl Hct (37.0-47.0) % MCV (80.0-98.0) fL MCH (27.0-33.0) pg MCHC (31.0-35.0) g/dl RDW (11.0-16.0) % Plt Count (160-400) X10*3/uL MPV (9.4-12.3) fL Immature Gran % (Auto) (0.0-0.4) % Neut % (Auto) (45-73) % Lymph % (Auto) (20-40) % [place] % (Auto) (2-11) % Eos % (Auto) (0-4) % Baso % (Auto) (0-2) % Lymph # (Auto) (1.2-4.9) X10*3/uL [place] # (Auto) (0.1-1.2) X10*3/uL Eos # (Auto) (0.0-0.4) X10*3/uL Baso # (Auto) (0.0-0.2) X10*3/uL Abs Immat Gran (auto) (0.00-0.03) X10*3/uL Absolute Neuts (auto) (2.0-8.3) x10*3/uL Absolute Nucleated RBC (0.0-0.012) X10*3/uL Nucleated RBC % (auto) (0.0-0.2) /100WBC Sodium (135-145) mmol/L Potassium (3.3-5.1) mmol/L Chloride (96-108) mmol/L Carbon Dioxide (22-29) mmol/L Anion Gap (12-20) BUN (9-16) mg/dL Creatinine (0.5-1.4) mg/dL Estim Creat Clear Calc Estimated GFR Random Glucose (60-115) mg/dL Calcium (8.4-10.2) mg/dL Urine Color STRAW Urine Appearance CLEAR Urine pH 6.5 (5.0-8.0) Ur Specific [place] 1.010 (1.005-1.025) Urine Protein NEG (NEG-TRACE) MG/DL Urine Glucose (UA) NEG (NEG) MG/DL Urine Ketones NEG (NEG) MG/DL Urine Blood 3+ H (NEG) Urine Nitrite NEG (NEG) Ur Leukocyte Esterase NEG (NEG) Urine RBC 0-2 (0) /HPF Urine WBC 0 (0-4) /HPF Ur Squamous Epith Cells 1+ /LPF Urine Bacteria TRACE /LPF Urine Test NEGATIVE (NEGATIVE) Chlam trachomat DNA PCR NOT DETECTED (Not Detect.) N.gonorrhoeae DNA (PCR) NOT DETECTED (Not Detect.) 06/01/22 06/01/22 Range/Units 02:30 02:31 WBC 5.6 (4.8-10.8) X10*3/uL RBC 4.97 (4.20-5.50) X10*6/uL Hgb 13.8 (12.0-16.0) g/dl Hct 41.9 (37.0-47.0) % MCV 84.3 (80.0-98.0) fL MCH 27.8 (27.0-33.0) pg MCHC 32.9 (31.0-35.0) g/dl RDW 14.4 (11.0-16.0) % Plt Count 311 (160-400) X10*3/uL MPV 10.2 (9.4-12.3) fL Immature Gran % (Auto) 0.2 (0.0-0.4) % Neut % (Auto) 59.0 (45-73) % Lymph % (Auto) 31.0 (20-40) % [place] % (Auto) 7.5 (2-11) % Eos % (Auto) 2.1 (0-4) % Baso % (Auto) 0.2 (0-2) % Lymph # (Auto) 1.7 (1.2-4.9) X10*3/uL [place] # (Auto) 0.4 (0.1-1.2) X10*3/uL Eos # (Auto) 0.1 (0.0-0.4) X10*3/uL Baso # (Auto) 0.0 (0.0-0.2) X10*3/uL Abs Immat Gran (auto) 0.01 (0.00-0.03) X10*3/uL Absolute Neuts (auto) 3.3 (2.0-8.3) x10*3/uL Absolute Nucleated RBC 0.000 (0.0-0.012) X10*3/uL Nucleated RBC % (auto) 0.0 (0.0-0.2) /100WBC Sodium 138 (135-145) mmol/L Potassium 4.3 (3.3-5.1) mmol/L Chloride 106 (96-108) mmol/L Carbon Dioxide 22 (22-29) mmol/L Anion Gap 14 (12-20) BUN 7 L (9-16) mg/dL Creatinine 0.79 (0.5-1.4) mg/dL Estim Creat Clear Calc 145.8 Estimated GFR > 60 Random Glucose 86 (60-115) mg/dL Calcium 9.2 D (8.4-10.2) mg/dL Urine Color Urine Appearance Urine pH (5.0-8.0) Ur Specific [place] (1.005-1.025) Urine Protein (NEG-TRACE) MG/DL Urine Glucose (UA) (NEG) MG/DL Urine Ketones (NEG) MG/DL Urine Blood (NEG) Urine Nitrite (NEG) Ur Leukocyte Esterase (NEG) Urine RBC (0) /HPF Urine WBC (0-4) /HPF Ur Squamous Epith Cells /LPF Urine Bacteria /LPF Urine Test (NEGATIVE) Chlam trachomat DNA PCR (Not Detect.) N.gonorrhoeae DNA (PCR) (Not Detect.) Discharge Plan Discharge Clinical Impression: Irritable bowel syndrome, Benign paroxysmal positional vertigo, Bacterial vaginitis Patient Disposition: Home, Self-Care Instructions: Bacterial Vaginosis (ED), Irritable Bowel Syndrome (ED), Benign Paroxysmal Positional Vertigo (ED) Additional Instructions: Take antibiotic as prescribed Medication for dizziness Safe sex techniques as advised Take medication for bowel symptoms and follow with PCP Prescriptions: New metronidazole 500 mg tablet 500 mg PO BID 7 Days Qty: 14 0RF meclizine 25 mg tablet 25 mg PO TID PRN (Reason: dizziness) Qty: 20 0RF dicyclomine 20 mg tablet 20 mg PO QID PRN (Reason: abdominal pain) Qty: 20 0RF No Action lorazepam 1 mg tablet 1 mg PO DAILY PRN (Reason: anxiety) 14 Days Qty: 14 0RF metronidazole 500 mg tablet 500 mg PO BID 7 Days Qty: 14 0RF Rx Instructions: Take with food, Avoid alcohol and vinegar products fluconazole [Diflucan] 150 mg tablet 150 mg PO DAILY Qty: 1 0RF Rx Instructions: administer on day 1 of therapy simethicone 180 mg capsule 180 mg PO .TIDAC 30 Days Qty: 90 6RF famotidine [Pepcid] 40 mg tablet 40 mg PO BID 30 Days Qty: 60 6RF Mirena 20 mcg/24 hours (7 yrs) 52 mg intrauterine device vaginal DAILY
[2022-06-01 02:36] LABS: MANUAL DIFF FLAG NO
[2022-06-01 02:37] LABS: Basophils Percent Auto 0.2 % (0-2); Eosinophils Absolute Auto 0.1 X10*3/uL (0.0-0.4); Eosinophils Percent Auto 2.1 % (0-4); Hematocrit 41.9 % (37.0-47.0); Hemoglobin 13.8 g/dl (12.0-16.0); Imm Gran Abs Auto 0.01 X10*3/uL (0.00-0.03); Imm Gran Pct Auto 0.2 % (0.0-0.4); Lymphocytes Absolute Auto 1.7 X10*3/uL (1.2-4.9); Mean Corpuscular HGB Conc 32.9 g/dl (31.0-35.0); Mean Corpuscular Hemoglobin 27.8 pg (27.0-33.0); Mean Corpuscular Volume 84.3 fL (80.0-98.0); Mean Platelet Volume 10.2 fL (9.4-12.3); Monocytes Absolute Auto 0.4 X10*3/uL (0.1-1.2); Monocytes Percent Auto 7.5 % (2-11); Neutrophils Absolute Auto 3.3 x10*3/uL (2.0-8.3); Platelet Count 311 X10*3/uL (160-400); Red Blood Count 4.97 X10*6/uL (4.20-5.50); Red Cell Distribution Width 14.4 % (11.0-16.0); White Blood Count 5.6 X10*3/uL (4.8-10.8)
[2022-06-01 02:45] LABS: UPreg QC Valid YES; Urine Pregnancy NEGATIVE (NEGATIVE)
[2022-06-01 02:46] LABS: Appearance Urine CLEAR; Color Urine STRAW; Glucose Urine UA NEG (NEG); Leukocyte Esterase Urine NEG (NEG); Nitrite Urine NEG (NEG); PH 6.5 (5.0-8.0); UACC Culture Trigger NO; Urine Blood 3+ (NEG); Urine Ketones NEG (NEG); Urine Protein NEG (NEG-TRACE)
[2022-06-01 02:48] LABS: Bacteria Urine TRACE /LPF; RBC Urine 0-2 /HPF (0); Squamous Epithelial Cell Urine 1+ /LPF; WBC Urine 0 /HPF (0-4)
[2022-06-01 02:53] LABS: Anion Gap 14 (12-20); Blood Urea Nitrogen 7 mg/dL (9-16); Calcium 9.2 mg/dL (8.4-10.2); Carbon Dioxide 22 mmol/L (22-29); Chloride 106 mmol/L (96-108); Creatinine Clr Calc Pharmacy 145.8; Estimated Glomerular Filt Rate > 60; Glucose Random 86 mg/dL (60-115); Potassium 4.3 mmol/L (3.3-5.1); Sodium 138 mmol/L (135-145)
[2022-06-01] MEDS: Meclizine HCl 25 MG TABLET 50 MG PO (03:07)
[2022-06-01] MEDS: Dicyclomine HCl 10 MG CAPSULE 20 MG PO (03:07)
--- NOTE | 2022-06-01 03:14 | PC.NURSE ---
administered medications per MAR, pt concerned about taking Lorazepam prior to being transported by EMS to the ED; MD notified and he is aware and said it was ok to take the medications he prescribed in addition to the lorazepam the pt took earlier
[2022-06-01 04:07] LABS: CT PCR NOT DETECTED (Not Detect.); NG PCR NOT DETECTED (Not Detect.)
[2022-06-01 08:25] LABS: HIV AB/AG Nonreactive (Nonreactive); HIV Num 1 0.06 S/CO (0.00-0.99)
== END 2022-06-01 04:51 | disposition home or self-care (01) ==
PROVIDERS: Emergency Provider Internal Medicine; PCP Physician Assistant
DX: K58.9 Irritable bowel syndrome, unspecified (principal); H81.13 Benign paroxysmal vertigo, bilateral; N76.0 Acute vaginitis; R10.13 Epigastric pain; Z79.899 Other long term (current) drug therapy
CPT/HCPCS: 36415; 80048; 81001; 81025; 85025; 87389; 87491; 87591; 99283; 99284

== ENCOUNTER 2022-06-26 11:32 | Outpatient (REF) | payer OTHER, SELFPAY ==
--- NOTE | ~2022-06-26 | XR_ITS ---
EXAMINATION: XR KNEE, LEFT CLINICAL INFORMATION: Posterior pain and instability. COMPARISON: None TECHNIQUE: AP, lateral and sunrise views of the left knee are submitted. FINDINGS: Bones and soft tissues are normal. No fracture or joint effusion. Alignment is anatomic. Joint spaces are well maintained. No abnormal soft tissue calcification. XR/XR knee LT 3V IMPRESSION: Normal left knee.
== END 2022-06-26 11:33 | disposition home or self-care (01) ==
LOC: HO.XRAY 11:32
PROVIDERS: PCP Physician Assistant; Visit Provider Physician Assistant
DX: M25.362 Other instability, left knee (principal)
CPT/HCPCS: 73562

== ENCOUNTER 2022-08-14 15:47 | Emergency (ER) | payer OTHER, SELFPAY ==
--- NOTE | ~2022-08-14 | CT_ITS ---
EXAMINATION: CT CERVICAL SPINE WITHOUT CONTRAST CLINICAL INFORMATION: Neck pain of 4-5 days duration. COMPARISON: None TECHNIQUE: Without the addition of intravenous contrast, multiple contiguous multidetector transaxial sections are obtained through the cervical spine. Multiplanar reformatted images are submitted. This CT examination was performed using dose optimization techniques as appropriate, variously including the following: *Automated exposure control *Adjustment of mA and/or kV according to patient size (this includes techniques or standardized protocols for targeted exams where dose is matched to indication/reason for exam; i.e. extremities or head) *Use of iterative reconstruction technique DLP: 460 mGy-cm FINDINGS: There is reversal of the normal lordotic curvature, which can be associated with muscle spasm. Vertebral body heights are normal. The disc spaces are well-maintained. No acute fracture or spondylolisthesis is seen. There is very mild spondylosis at C3-C4 through C5-C6. The posterior elements are intact. The dens and C7-T1 interface are normal. There is no prevertebral soft tissue. The lung apices appear clear. CT/CT cervical spine wo IV con IMPRESSION: 1. There is reversal of the normal lordotic curvature, which can be associated with muscle spasm. 2. No acute fracture or spondylolisthesis is seen. 3. The cervical disc spaces are well-maintained. 4. There is very mild spondylosis extending from C3-C4 through C5-C6. Fleischner guidelines were followed.
[2022-08-14 18:09] VITALS: BP 116/76; PULSE 65; RESP 18; TEMP 37.1; O2SAT 99; BMI 29.3
--- NOTE | 2022-08-14 20:23 | ED.NECK ---
HPI - Neck Pain/Injury General Chief Complaint: Neck Pain/Injury Stated Complaint: rightsided neck pain,hot flashes Time Seen by Provider: 08/14/22 19:22 Source: patient Mode of arrival: ambulatory Limitations: no limitations History of Present Illness HPI Narrative: The patient is a 32 year old who presents to the ED for a complaint of right sided neck pain for the past 4 days and hot flashes . PMHx significant for anxiety and vertigo. The patient reports the neck pain is intermittent and describes it as a throbbing pain. They also describe the hot flashes as a hot feeling that starts in the stomach and goes up around the head. They report the hot flashes make the skin feeling hot, but denies sweating. They reports the hot flash feeling feels similar to a vertigo episode. The patient is concerned the neck pain, may be cancerous, the patients mother 1 year ago due to breast cancer. Of note the patient was recently started on a topical anti-fungal, and ran out of their vertigo medication (meclizine) one week ago. The patient also is requesting refills of their meclizine and lorazepam medication. MD complaint: neck pain Onset (ago): day(s) Radiation: right lateral Quality: throbbing Duration: intermittent Relieving factors: none Exacerbating factors: none Related Data Home Medications Medication Instructions Recorded Confirmed levonorgestrel 20 mcg/24 hours (7 vaginal DAILY 04/20/22 06/26/22 yrs) 52 mg intrauterine device (Mirena) Previous Rx's Medication Instructions Recorded famotidine 40 mg tablet (Pepcid) 40 mg PO BID 30 days #60 tabs 05/31/22 simethicone 180 mg capsule 180 mg PO .TIDAC 30 days #90 caps 05/31/22 dicyclomine 20 mg tablet 20 mg PO QID PRN abdominal pain 06/01/22 #20 tabs ketoconazole 2 % shampoo 1 appl topical 3XW 30 days #120 mL 06/26/22 meclizine 25 mg tablet 25 mg PO TID PRN dizziness #20 tabs 06/26/22 ondansetron 8 mg disintegrating 8 mg PO Q12H PRN nausea and 06/26/22 tablet vomiting 5 days #10 tabs sertraline 25 mg tablet (Zoloft) 25 mg PO DAILY 30 days #30 tabs 06/26/22 lorazepam 1 mg tablet 1 mg PO DAILY PRN anxiety 14 days 07/25/22 #14 tabs cyclobenzaprine 10 mg tablet 10 mg PO Q8H Muscle spasm #10 tabs 08/14/22 lorazepam 1 mg tablet (Ativan) 1 mg PO TID PRN anxiety #10 tabs 08/14/22 meclizine 50 mg tablet 50 mg PO DAILY Vertigo #20 tabs 08/14/22 Allergies Allergy/AdvReac Type Severity Reaction Status Date / Time Penicillins [PENICILLINS] Allergy Unknown HIVES AND Verified 06/26/22 10:37 SWELLING Sulfa (Sulfonamide Allergy Unknown Anaphylaxis Verified 06/26/22 10:37 Antibiotics) sulfamethoxazole Allergy Unknown HALLUCINATI Verified 06/26/22 10:37 [From BACTRIM] ONS/HIVES trimethoprim [From BACTRIM] Allergy Unknown HALLUCINATI Verified 06/26/22 10:37 ONS/HIVES Review of Systems Review of Systems: Constitutional : No trauma, No Weight loss, No Fever, No Chills, ENT/Mouth : No Hearing loss, No Ear Pain, No Nasal Congestion, No Sinus Pain, No Hoarseness, No sore throat, No Rhinorrhea, No Swallowing Difficulty Cardiovascular : No Chest Pain, No SOB Respiratory : No Cough, No Dyspnea Gastrointestinal : No Nausea, No Vomiting, No Diarrhea, No abdominal Pain, No Hematochezia, No Melena Genitourinary : No Dysuria, No Urinary Frequency, No Hematuria, No Urinary or Bowel Incontinence/retention Musculoskeletal : + right sided Neck pain, No Back pain, No joint stiffness, No joint swelling Skin : No Skin Lesions, No rash or signs of infection Neuro : No Tingling to b/l arms/legs, No Weakness, No radiation, No Numbness, + headache, no loss of bowel or bladder incontinence, no saddle anesthesia Psych: The patient denies SI/HI. Yes all other systems are reviewed and are negative [facility] Past Medical History Attestation statement: The following information was validated with the patient. Source: old records reviewed, obtained from family and nursing notes reviewed Medical History Anxiety Surgical History History of D&C History of esophagogastroduodenoscopy (EGD) History of tonsillectomy History of wisdom tooth extraction (~09/2020) Family History Family History Father In good health Mother Breast cancer Family/Other Stroke Brother No problems noted. Sister In good health Daughter In good health Maternal Grandmother Arthritis Other Family history non-contributory Social History Social History Household Members: Family Alcohol intake: current Alcohol intake frequency: holidays/special occasions only Patient Tobacco Use Status: Never used Tobacco Advance Directives: No Sexual orientation: Lesbian/Morales/Homosexual Cognitive needs: No Hearing needs: No Vision needs: No Physical Exam Vital Signs: Vital Signs: Last Vital Signs Temp 98.7 F 08/14/22 18:09 Pulse 65 08/14/22 18:09 Resp 18 08/14/22 18:09 BP 116/76 08/14/22 18:09 Pulse Ox 99 08/14/22 18:09 O2 Del Method 08/14/22 18:09 BMI result Body Mass Index 29.3 vital signs have been reviewed as normal and appeared to be correct. Blood pressure normal. Heart rate normal. Respiration rate normal. Temperature normal. Oxygen saturation normal. Appearance: Alert. Oriented X3. No acute distress. Head: Normal external exam. Normocephalic. Atraumatic. No Weber signs noted. No raccoon eyes noted Eyes: PERRLA. EOMI. Conjunctiva and sclera normal. Eyelids normal. ENT: Moist mucous membranes. No lesions/ulcerations or masses noted on the tongue. Normal voice. No trismus noted. No drooling noted. No muffled voice noted. Neck: Normal inspection. Neck supple.No adenopathy. No tracheal deviation noted. No crepitus is noted. No neck mass noted. No signs of trauma noted. Patient neuro intact bilaterally and distally in all 4 extremities. Reflexes intact bilaterally and distally in all 4 extremities. Patient with tenderness palpation to bilateral paracervical musculature. No mid cervical tenderness step-offs or deformities noted. CVS: Normal heart rate and rhythm. Heart sound normal. Pulses normal throughout. No murmurs/rales/gallops. Respiratory: No respiratory distress. Painless inspiration. Breath sounds normal. No wheezes/rales/rhonchi noted. Chest nontender. No crepitus is noted. No accessory muscle usage noted or decreased air movement noted. No signs of trauma. Back: Patient neuro intact bilaterally and distally on all 4 extremities. No rashes/lesion/induration/fluctuance or signs of infection noted. Skin: Skin warm and dry. Normal skin color. Normal skin turgor. No rashes/lesions/lacerations noted. Extremities: No lower extremity edema. Extremities exhibit normal range of motion and nontender. Neuro: Oriented X 3. No motor deficit. No sensory deficit. Normal steady gait. No focal neuro deficits noted. Course Course Course Narrative: 8pm -The patient is a 32 year old who presents to the ED for a complaint of throbbing right sided neck pain, and feeling of hot flashes starting in the stomach and going to the head. These symptoms started 4 days ago. The patient has a PMH significant for anxiety and vertigo. CT of the neck ordered. CBC, Chem 10, and A1C ordered. Reevaluation(s) Reevaluation #1: CT scan of cervical spine revealed muscle spasm and chronic changes otherwise no other acute processes. All labs within normal limits. Hemoglobin A1c I spoke to lab and they reported that it will not be resulted until tomorrow. Therefore the patient signed up for the patient portal and I explained to the patient that they will need to check the A1c level tomorrow and if it is greater than 6 they will need to follow back with us or with her primary care provider. Patient understands agrees with this plan. Time: 22:37 [facility] - Neck Pain/Injury Medical Records Attestation: I reviewed the patient's medical records. Lab Data Attestation: I reviewed the patient's lab results. Result diagrams: 08/14/22 20:27 08/14/22 20:27 Labs: Lab Results 08/14/22 08/14/22 Range/Units 20:27 20:27 WBC 6.1 (4.8-10.8) X10*3/uL RBC 4.50 (4.20-5.50) X10*6/uL Hgb 12.6 (12.0-16.0) g/dl Hct 39.1 (37.0-47.0) % MCV 86.9 (80.0-98.0) fL MCH 28.0 (27.0-33.0) pg MCHC 32.2 (31.0-35.0) g/dl RDW 14.1 (11.0-16.0) % Plt Count 304 (160-400) X10*3/uL MPV 9.9 (9.4-12.3) fL Immature Gran % (Auto) 0.3 (0.0-0.4) % Neut % (Auto) 56.2 (45-73) % Lymph % (Auto) 35.4 (20-40) % Geary % (Auto) 6.1 (2-11) % Eos % (Auto) 1.5 (0-4) % Baso % (Auto) 0.5 (0-2) % Lymph # (Auto) 2.2 (1.2-4.9) X10*3/uL Geary # (Auto) 0.4 (0.1-1.2) X10*3/uL Eos # (Auto) 0.1 (0.0-0.4) X10*3/uL Baso # (Auto) 0.0 (0.0-0.2) X10*3/uL Abs Immat Gran (auto) 0.02 (0.00-0.03) X10*3/uL Absolute Neuts (auto) 3.4 (2.0-8.3) x10*3/uL Absolute Nucleated RBC 0.000 (0.0-0.012) X10*3/uL Nucleated RBC % (auto) 0.0 (0.0-0.2) /100WBC Sodium 139 (135-145) mmol/L Potassium 4.3 (3.3-5.1) mmol/L Chloride 104 (96-108) mmol/L Carbon Dioxide 24 (22-29) mmol/L Anion Gap 15 (12-20) BUN 10 (9-16) mg/dL Creatinine 0.78 (0.5-1.4) mg/dL Estim Creat Clear Calc 148.2 Estimated GFR > 60 Random Glucose 96 (60-115) mg/dL Calcium 9.3 (8.4-10.2) mg/dL Imaging Data ct cervical spine : Attestation: I personally reviewed and interpreted this imaging study as follows: Radiologist's impression: FINDINGS: There is reversal of the normal lordotic curvature, which can be associated with muscle spasm. Vertebral body heights are normal. The disc spaces are well-maintained. No acute fracture or spondylolisthesis is seen. There is very mild spondylosis at C3-C4 through C5-C6. The posterior elements are intact. The dens and C7-T1 interface are normal. There is no prevertebral soft tissue. The lung apices appear clear. CT/CT cervical spine wo IV con IMPRESSION: ? 1. There is reversal of the normal lordotic curvature, which can be associated with muscle spasm. ? 2. No acute fracture or spondylolisthesis is seen. ? 3. The cervical disc spaces are well-maintained. ? 4. There is very mild spondylosis extending from C3-C4 through C5-C6. ? Fleischner guidelines were followed. Discharge Plan Discharge Clinical Impression: Muscle spasms of neck, Hot flashes, Medication refill Patient Disposition: Home, Self-Care Instructions: Muscle Spasm (ED) Additional Instructions: You have a pending lab results for hemoglobin A1c for diabetes. You will have to follow-up on this please sign into your patient portal. If he results is greater than 6 please call us immediately or follow up with your primary care provider regarding this. Return if any new or worsening symptoms. Prescriptions: New lorazepam [Ativan] 1 mg tablet 1 mg PO TID PRN (Reason: anxiety) Qty: 10 0RF meclizine 50 mg tablet 50 mg PO DAILY Qty: 20 0RF cyclobenzaprine 10 mg tablet 10 mg PO Q8H Qty: 10 0RF No Action simethicone 180 mg capsule 180 mg PO .TIDAC 30 Days Qty: 90 6RF famotidine [Pepcid] 40 mg tablet 40 mg PO BID 30 Days Qty: 60 6RF lorazepam 1 mg tablet 1 mg PO DAILY PRN (Reason: anxiety) 14 Days Qty: 14 0RF dicyclomine 20 mg tablet 20 mg PO QID PRN (Reason: abdominal pain) Qty: 20 0RF sertraline [Zoloft] 25 mg tablet 25 mg PO DAILY 30 Days Qty: 30 3RF meclizine 25 mg tablet 25 mg PO TID PRN (Reason: dizziness) Qty: 20 0RF ketoconazole 2 % shampoo 1 appl topical 3XW 30 Days Qty: 120 1RF ondansetron 8 mg tablet,disintegrating 8 mg PO Q12H PRN (Reason: nausea and vomiting) 5 Days Qty: 10 0RF Mirena 20 mcg/24 hours (7 yrs) 52 mg intrauterine device vaginal DAILY Referrals: Rodolfo Chirinos PA-C [Primary Care Provider] - 2 days Interventions: ED Discharge Assessment Last Done: 08/14/22 22:11 Discharge Date/Time: 08/14/22 22:11
[2022-08-14 20:39] LABS: MANUAL DIFF FLAG NO
[2022-08-14 20:45] LABS: Basophils Percent Auto 0.5 % (0-2); Eosinophils Absolute Auto 0.1 X10*3/uL (0.0-0.4); Eosinophils Percent Auto 1.5 % (0-4); Hematocrit 39.1 % (37.0-47.0); Hemoglobin 12.6 g/dl (12.0-16.0); Imm Gran Abs Auto 0.02 X10*3/uL (0.00-0.03); Imm Gran Pct Auto 0.3 % (0.0-0.4); Lymphocytes Absolute Auto 2.2 X10*3/uL (1.2-4.9); Lymphocytes Percent Auto 35.4 % (20-40); Mean Corpuscular HGB Conc 32.2 g/dl (31.0-35.0); Mean Corpuscular Volume 86.9 fL (80.0-98.0); Mean Platelet Volume 9.9 fL (9.4-12.3); Monocytes Absolute Auto 0.4 X10*3/uL (0.1-1.2); Monocytes Percent Auto 6.1 % (2-11); Neutrophils Absolute Auto 3.4 x10*3/uL (2.0-8.3); Neutrophils Percent Auto 56.2 % (45-73); Platelet Count 304 X10*3/uL (160-400); Red Cell Distribution Width 14.1 % (11.0-16.0); White Blood Count 6.1 X10*3/uL (4.8-10.8)
[2022-08-14 20:54] LABS: Anion Gap 15 (12-20); Blood Urea Nitrogen 10 mg/dL (9-16); Calcium 9.3 mg/dL (8.4-10.2); Carbon Dioxide 24 mmol/L (22-29); Chloride 104 mmol/L (96-108); Creatinine Clr Calc Pharmacy 148.2; Estimated Glomerular Filt Rate > 60; Glucose Random 96 mg/dL (60-115); Potassium 4.3 mmol/L (3.3-5.1); Sodium 139 mmol/L (135-145)
[2022-08-15 05:25] LABS: Estimated Average Glucose 97 mg/dL
== END 2022-08-14 22:11 | disposition home or self-care (01) ==
PROVIDERS: Physician Assistant Medical; Emergency Provider Emergency Medicine; PCP Physician Assistant
DX: M62.838 Other muscle spasm (principal); N95.1 Menopausal and female climacteric states; M54.2 Cervicalgia; Z76.0 Encounter for issue of repeat prescription
CPT/HCPCS: 36415; 72125; 80048; 83036; 85025; 99282; 99284

== ENCOUNTER 2022-09-06 16:57 | Outpatient (REF) | payer OTHER, SELFPAY ==
[2022-09-07 08:50] LABS: HBS Num1 40.89 mIU/mL (0-7.99); HBc Num1 0.06 S/CO (0.00-0.79); HBsAGNum1 0.19 S/CO (0.00-0.99); HIV AB/AG Nonreactive (Nonreactive); HIV Num 1 0.08 S/CO (0.00-0.99); Hepatitis B Core Antibody Nonreactive (Nonreactive); Hepatitis B Surface Antigen Negative (Negative); ~HepC Num1 0.09 S/CO (0.00-0.79); ~Hepatitis B Surface Antibody REACTIVE (Nonreactive); ~Hepatitis C Antibody Nonreactive (Nonreactive)
[2022-09-08 06:50] LABS: Syphilis Screen Nonreactive (Nonreactive)
== END 2022-09-06 16:58 | disposition home or self-care (01) ==
LOC: HO.LAB 16:57
PROVIDERS: Visit Provider Physician Assistant
DX: Z11.4 Encounter for screening for human immunodeficiency virus [HIV] (principal); Z11.3 Encounter for screening for infections with a predominantly sexual mode of transmission
CPT/HCPCS: 36415; 86704; 86706; 86780; 86803; 87340; 87389

== ENCOUNTER 2022-09-18 13:57 | Outpatient (REF) | payer OTHER, SELFPAY ==
[2022-09-19 04:53] LABS: CT PCR NOT DETECTED (Not Detect.); NG PCR NOT DETECTED (Not Detect.)
[2022-09-19 12:37] LABS: BV Int Neg Control Negative (Negative); BV Int Pos Control Positive (Positive)
== END 2022-09-18 13:58 | disposition home or self-care (01) ==
LOC: HO.LNP 13:57
PROVIDERS: Visit Provider Advanced Practice Midwife
DX: Z11.3 Encounter for screening for infections with a predominantly sexual mode of transmission (principal); Z78.9 Other specified health status; Z97.5 Presence of (intrauterine) contraceptive device
CPT/HCPCS: 87480; 87491; 87510; 87591; 87660; 99212

== ENCOUNTER → 2023-02-09 15:28 | Outpatient (REF) | payer OTHER, SELFPAY ==
--- NOTE | 2023-02-09 15:52 | ECG_ITS ---
Test Reason : palpitations Blood Pressure : / mmHG Vent. Rate : 073 BPM Atrial Rate : 073 BPM P-R Int : 140 ms QRS Dur : 080 ms QT Int : 352 ms P-R-T Axes : 073 071 046 degrees QTc Int : 387 ms Normal sinus rhythm with sinus arrhythmia Normal ECG When compared with ECG of 29-AUG-2019 14:32, Nonspecific T wave abnormality no longer evident in Inferior leads Nonspecific T wave abnormality no longer evident in Anterolateral leads Referred By: Rodolfo Chirinos Electronically Signed By:JAVI ARIZMENDI MD
== END ==
LOC: HO.CARD 15:28
PROVIDERS: PCP Physician Assistant; Visit Provider Physician Assistant
DX: R00.2 Palpitations (principal)
CPT/HCPCS: 93005

== ENCOUNTER → 2023-03-02 14:08 | Outpatient (BNVA) | payer OTHER, SELFPAY | PROVIDERS: PCP Physician Assistant; Visit Provider Nurse Practitioner | DX: K21.9 Gastro-esophageal reflux disease without esophagitis (principal); R14.0 Abdominal distension (gaseous); K58.2 Mixed irritable bowel syndrome | CPT/HCPCS: 99212 ==

== ENCOUNTER 2023-05-04 16:44 | Outpatient (REF) | payer OTHER, SELFPAY ==
[2023-05-07 04:12] LABS: HBS Num1 74.02 mIU/mL (0-7.99); HBc Num1 0.05 S/CO (0.00-0.79); HBsAGNum1 0.27 S/CO (0.00-0.99); HIV AB/AG Nonreactive (Nonreactive); HIV Num 1 0.08 S/CO (0.00-0.99); Hepatitis A Antibody IgM 0.61 Index (0-0.79); Hepatitis B Core Antibody Nonreactive (Nonreactive); Hepatitis B Surface Antigen Negative (Negative); ~HepC Num1 0.08 S/CO (0.00-0.79); ~Hepatitis A Antibody IgM Nonreactive (Nonreactive); ~Hepatitis B Surface Antibody REACTIVE (Nonreactive); ~Hepatitis C Antibody Nonreactive (Nonreactive)
[2023-05-07 04:22] LABS: Syphilis Screen Nonreactive (Nonreactive)
== END 2023-05-04 16:45 | disposition home or self-care (01) ==
LOC: HO.LAB 16:44
PROVIDERS: PCP Physician Assistant; Visit Provider Nurse Practitioner Family
DX: Z11.3 Encounter for screening for infections with a predominantly sexual mode of transmission (principal)
CPT/HCPCS: 36415; 86704; 86706; 86709; 86780; 86803; 87340; 87389

== ENCOUNTER 2023-05-29 13:50 | Emergency (ER) | payer OTHER, SELFPAY ==
[2023-05-29 14:13] VITALS: BP 140/84; PULSE 91; RESP 18; TEMP 36.4; O2SAT 98; BMI 31.2
--- NOTE | 2023-05-29 14:14 | ED.GENADULT ---
HPI - General Adult General Chief complaint: Skin/Abscess/Foreign Body Stated complaint: Rash on Forehead Time Seen by Provider: 05/29/23 14:35 Source: patient Mode of arrival: ambulatory Limitations: no limitations History of Present Illness HPI narrative: 32 y/o transgender female to male presents to the ER for evaluation of an itchy red rash to the forehead that started yesterday when he woke up and got slightly worse today. He took benadryl with improvement in itching. No other lesions anywhere else on the body. No fever, chills, N/V/D, abdominal pain, chest pain, facial swelling, tongue swelling. No new soaps or lotions. No known insect or tick bite. MD complaint: forehead rash Onset (ago): day(s) (1) Location: face Radiation: non-radiation Severity: moderate Quality: other (itchy) Relieving factors: medication Exacerbating factors: none Associated symptoms: denies other symptoms Treatments prior to arrival: other (benadryl) Related Data Home Medications Medication Instructions Recorded Confirmed testosterone cypionate 200 mg/mL 50 mg subcut QWEEK 10/27/22 05/04/23 intramuscular oil needle (disp) 23 gauge 23 gauge x #100 ea 03/02/23 05/04/23 1 (Hypodermic [place]) needle (disp) 25 gauge 25 gauge x #1,000 ea 03/02/23 05/04/23 5/8 (BD Regular Bevel [place]) syringe (disposable) 1 mL (BD #1,000 ea 03/02/23 05/04/23 Luer-Grace Syringe) Previous Rx's Medication Instructions Recorded famotidine 40 mg tablet (Pepcid) 40 mg PO BID 30 days #60 tabs 03/02/23 meclizine 25 mg tablet 25 mg PO TID PRN dizziness #90 tabs 03/02/23 ondansetron 8 mg disintegrating 8 mg PO Q12H PRN nausea and 03/02/23 tablet vomiting 5 days #10 tabs simethicone 180 mg capsule 180 mg PO .TIDAC 30 days #90 caps 03/02/23 dicyclomine 20 mg tablet 20 mg PO QID PRN abdominal pain 03/28/23 #90 tabs sennosides 8.6 mg capsule (senna) 17.2 mg PO BEDTIME constipation 30 03/28/23 days #60 caps cyclobenzaprine 10 mg tablet 10 mg PO Q8H Muscle spasm #10 tabs 05/04/23 ibuprofen 600 mg tablet 600 mg PO Q8H PRN pain #20 tabs 05/04/23 ketoconazole 2 % shampoo 1 appl topical 3XW 30 days #120 mL 05/04/23 lorazepam 1 mg tablet 1 mg PO DAILY PRN anxiety 21 days 05/04/23 #21 tabs sertraline 100 mg tablet 100 mg PO DAILY #60 tabs 05/04/23 hydrocortisone 2.5 % topical cream 1 appl topical TID PRN itching #28 05/29/23 grams Allergies Allergy/AdvReac Type Severity Reaction Status Date / Time Penicillins [PENICILLINS] Allergy Unknown HIVES AND Verified 05/29/23 14:17 SWELLING Sulfa (Sulfonamide Allergy Unknown Anaphylaxis Verified 05/29/23 14:17 Antibiotics) sulfamethoxazole Allergy Unknown HALLUCINATI Verified 05/29/23 14:17 [From BACTRIM] ONS/HIVES trimethoprim [From BACTRIM] Allergy Unknown HALLUCINATI Verified 05/29/23 14:17 ONS/HIVES Review of Systems Review of Systems: Yes all other systems are reviewed and are negative COUNTS INCLUDE 234 BEDS AT THE [facility] Past Medical History Medical History (Updated 05/30/23 @ 00:28 by Britney Hendricks) Anxiety Sinusitis Surgical History History of D&C History of esophagogastroduodenoscopy (EGD) History of tonsillectomy History of wisdom tooth extraction (~09/2020) Family History Family History Father In good health Mother Breast cancer Family/Other Stroke Brother No problems noted. Sister In good health Daughter In good health Maternal Grandmother Arthritis Other Family history non-contributory Social History Social History Household Members: Family Housing: Apartment Alcohol intake: current Alcohol intake frequency: holidays/special occasions only Patient Tobacco Use Status: Never used Tobacco e-Cigarette/Vaping Use: Never Used Second Hand Smoke Exposure: No Advance Directives: No service: No Current occupational status: employed Sexual orientation: Lesbian/Morales/Homosexual Cognitive needs: No Hearing needs: No Vision needs: No Physical Exam ED Vital Signs: Vital Signs - 24 hr 05/29/23 14:13 Temperature 97.6 F Pulse Rate 91 Respiratory Rate 18 Blood Pressure 140/84 H Pulse Oximetry 98 Oxygen Delivery Method Room Air BMI result Body Mass Index 31.2 Appearance: Alert. Oriented X3. No acute distress. HEENT: there is a maclopapular erythematous rash in a circular pattern on the forehead with vesicle like lesions CVS: Normal heart rate and rhythm. Pulses normal. Respiratory: No respiratory distress. Skin: Skin warm and dry. Normal skin color. Normal skin turgor. No other rashes. Extremities: normal inspecion x4. no joint swelling Neuro: Oriented X 3. No motor deficit. No sensory deficit. Course Course Course Narrative: This is an RME: Additional HPI, ROS, PE not included below will be deferred to primary provider. 32 year old female to male transgender presents w/ rash on forehead since yesterday worsening now having a tingly tongue . Put clotrimazole cream on it with little to no relief. Reports it hurts and its itchy. Plan- benadryl Medications Administered Discontinued Medications Generic Name Dose Route Start Last Admin Trade Name Freq PRN Reason Stop Dose Admin Bacitracin 3 appl 05/29/23 15:50 05/29/23 15:57 Bacitracin Oint 0.9 Gm Packet TOPICAL 05/29/23 15:51 3 appl ONCE ONE Administration Protocol Diphenhydramine HCl 25 mg 05/29/23 14:14 05/29/23 14:28 Diphenhydramine Hcl 25 Mg Capsule PO 05/29/23 14:15 25 mg ONCE ONE Administration Medical Decision Making Medical Decision Making MDM Narrative: 32 yo transgender female to male here with itchy red, raised rash to the forehead. appearance is c/w insect bite. no dermatomal pattern or burning sensation to suggest HSV. will treat with topical steroids and Benadryl. stable for d/c home. Differential Diagnosis Differential Diagnoses: The differential diagnosis associated with the presentation includes insect bite, shingles, cellulitis, contact dermatitis External Record Review External record reviewed: Prior outpatient labs Tests considered The following testing was considered but not selected: tick bourne panel considered Prescription Management I considered prescription management with: Antibiotic and Other (topical corticosteroids) Critical Care Time Critical Care Time Critical Care Time: No Discharge Plan Discharge Clinical Impression: Insect bite Patient Disposition: Home, Self-Care Instructions: Insect Bite or Sting (ED) Additional Instructions: use the prescribed steroid cream as directed use bacitracin 2 times per day take benadryl as needed for itching If you develop new or worsening symptoms call 911 or come back to the ER for further evaluation. Prescriptions: New hydrocortisone 2.5 % cream 1 appl topical TID PRN (Reason: itching) Qty: 28 0RF No Action dicyclomine 20 mg tablet 20 mg PO QID PRN (Reason: abdominal pain) Qty: 90 3RF senna 8.6 mg capsule 17.2 mg PO BEDTIME 30 Days Qty: 60 6RF cyclobenzaprine 10 mg tablet 10 mg PO Q8H Qty: 10 0RF sertraline 100 mg tablet 100 mg PO DAILY Qty: 60 0RF ketoconazole 2 % shampoo 1 appl topical 3XW 30 Days Qty: 120 1RF lorazepam 1 mg tablet 1 mg PO DAILY PRN (Reason: anxiety) 21 Days Qty: 21 0RF ibuprofen 600 mg tablet 600 mg PO Q8H PRN (Reason: pain) Qty: 20 0RF testosterone cypionate 200 mg/mL oil 50 mg subcut QWEEK (DME) BD Luer-Grace Syringe 1 mL syringe See Rx Instructions .ROUTE DIRECTED Qty: 1000 Rx Instructions: As directed (DME) needle (disp) 23 gauge [Hypodermic [place]] 23 gauge x 1 needle See Rx Instructions .ROUTE DIRECTED Qty: 100 Rx Instructions: As directed (DME) BD Regular Bevel [place] 25 gauge x 5/8 needle See Rx Instructions .ROUTE DIRECTED Qty: 1000 Rx Instructions: As directed famotidine [Pepcid] 40 mg tablet 40 mg PO BID 30 Days Qty: 60 6RF simethicone 180 mg capsule 180 mg PO .TIDAC 30 Days Qty: 90 6RF ondansetron 8 mg tablet,disintegrating 8 mg PO Q12H PRN (Reason: nausea and vomiting) 5 Days Qty: 10 6RF meclizine 25 mg tablet 25 mg PO TID PRN (Reason: dizziness) Qty: 90 6RF Interventions: ED Discharge Assessment Last Done: 05/29/23 16:07 Discharge Date/Time: 05/29/23 16:07
[2023-05-29] MEDS: diphenhydrAMINE HCL 25 MG CAPSULE PO (14:28)
--- NOTE | 2023-05-29 14:30 | PC.NURSE ---
pt medicated per MAR small cluster of bites noted on upper right forehead
[2023-05-29] MEDS: Bacitracin Oint 0.9 GM PACKET 3 APPL TOPICAL (15:57)
== END 2023-05-29 16:07 | disposition home or self-care (01) ==
PROVIDERS: Emergency Provider Emergency Medicine Emergency Medical Services; PCP Physician Assistant
DX: S00.86XA Insect bite (nonvenomous) of other part of head, initial encounter (principal); W57.XXXA Bitten or stung by nonvenomous insect and other nonvenomous arthropods, initial encounter; Y93.9 Activity, unspecified; Y92.9 Unspecified place or not applicable; Y99.9 Unspecified external cause status
CPT/HCPCS: 99282; 99283

== ENCOUNTER 2023-06-27 07:52 | Emergency (ER) | payer OTHER, SELFPAY ==
--- NOTE | ~2023-06-27 | XR_ITS ---
EXAMINATION: XR ANKLE, RIGHT CLINICAL INFORMATION: Sprain ecchymosis COMPARISON: None available. TECHNIQUE: AP, lateral, and mortise views of the right ankle. FINDINGS: No acute visible fracture or dislocation. The ankle mortise is symmetric. Joint spaces and alignment are maintained. Soft tissue prominence along the lateral malleolus. XR/XR ankle RT min 3V IMPRESSION: 1. No acute visible fracture or dislocation. 2. Soft tissue prominence along the lateral malleolus.
--- NOTE | ~2023-06-27 | XR_ITS ---
EXAMINATION: XR CHEST CLINICAL INFORMATION: Chest pain shortness of breath COMPARISON: Chest radiograph from 11/19/2020 TECHNIQUE: 2 views of the chest were obtained. FINDINGS: No focal consolidation. No pneumothorax. Trachea is midline. Cardiomediastinal silhouette is not enlarged. No large pleural effusion. Osseous structures are intact. Soft tissues are unremarkable. XR/XR chest 2V IMPRESSION: No acute cardiopulmonary process.
--- NOTE | 2023-06-27 07:59 | ECG_ITS ---
Test Reason : chest pressure Blood Pressure : / mmHG Vent. Rate : 077 BPM Atrial Rate : 077 BPM P-R Int : 148 ms QRS Dur : 076 ms QT Int : 356 ms P-R-T Axes : 068 055 029 degrees QTc Int : 402 ms Normal sinus rhythm Nonspecific T wave abnormality Abnormal ECG When compared with ECG of 09-FEB-2023 15:54, Nonspecific T wave abnormality now evident in Lateral leads Referred By: Generic ED Physician Electronically Signed By:Prabhakar Coffman
[2023-06-27 08:11] VITALS: BP 143/88; PULSE 95; RESP 16; TEMP 37.2; O2SAT 96; BMI 32.7
--- NOTE | 2023-06-27 08:19 | ED_ITS ---
HPI - Chest Pain General Chief Complaint: Chest Pain Stated Complaint: Chest heaviness-med changes Time Seen by Provider: 06/27/23 08:04 Source: patient, RN notes reviewed and old records reviewed Mode of arrival: ambulatory History of Present Illness HPI narrative: 33-year-old female to male transgender currently on testosterone with a past medical history of anxiety presenting to the ED complaining of chest pressure and SOB x 4 days. 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 Patient unsure if this caused symptoms or increased anxiety. Also reports tight feeling in throat. Admits to rolling ankle on curb 2 weeks ago with persistent right ankle pain/swelling. Has been ambulatory. Denies difficulty/inability to swallow, cough, fever/chills, pedal edema/calf pain, history of clots, cigarette smoking, recent travel MD complaint: chest pain Related Data Home Medications Medication Instructions Recorded Confirmed testosterone cypionate 200 mg/mL 50 mg subcut QWEEK 10/27/22 05/04/23 intramuscular oil needle (disp) 23 gauge 23 gauge x #100 ea 03/02/23 05/04/23 1 (Hypodermic [place]) needle (disp) 25 gauge 25 gauge x #1,000 ea 03/02/23 05/04/23 5/8 (BD Regular Bevel [place]) syringe (disposable) 1 mL (BD #1,000 ea 03/02/23 05/04/23 Luer-Grace Syringe) Previous Rx's Medication Instructions Recorded meclizine 25 mg tablet 25 mg PO TID PRN dizziness #90 tabs 03/02/23 ondansetron 8 mg disintegrating 8 mg PO Q12H PRN nausea and 03/02/23 tablet vomiting 5 days #10 tabs simethicone 180 mg capsule 180 mg PO .TIDAC 30 days #90 caps 03/02/23 dicyclomine 20 mg tablet 20 mg PO QID PRN abdominal pain 03/28/23 #90 tabs sennosides 8.6 mg capsule (senna) 17.2 mg PO BEDTIME constipation 30 03/28/23 days #60 caps cyclobenzaprine 10 mg tablet 10 mg PO Q8H Muscle spasm #10 tabs 05/04/23 ibuprofen 600 mg tablet 600 mg PO Q8H PRN pain #20 tabs 05/04/23 lorazepam 1 mg tablet 1 mg PO DAILY PRN anxiety 21 days 05/04/23 #21 tabs sertraline 100 mg tablet 100 mg PO DAILY #60 tabs 05/04/23 hydrocortisone 2.5 % topical cream 1 appl topical TID PRN itching #28 05/29/23 grams ketoconazole 2 % shampoo 1 appl topical 3XW 30 days #120 mL 06/06/23 famotidine 40 mg tablet (Pepcid) 40 mg PO BID 30 days #60 tabs 06/11/23 Allergies Allergy/AdvReac Type Severity Reaction Status Date / Time Penicillins [PENICILLINS] Allergy Unknown HIVES AND Verified 05/29/23 14:17 SWELLING Sulfa (Sulfonamide Allergy Unknown Anaphylaxis Verified 05/29/23 14:17 Antibiotics) sulfamethoxazole Allergy Unknown HALLUCINATI Verified 05/29/23 14:17 [From BACTRIM] ONS/HIVES trimethoprim [From BACTRIM] Allergy Unknown HALLUCINATI Verified 05/29/23 14:17 ONS/HIVES Review of Systems Review of Systems: Constitutional: No Fever, No Chills, No Night Sweats, No Fatigue, No Malaise ENT/Mouth: No Ear Pain, No Nasal Congestion, + sore throat, No Rhinorrhea, No Swallowing Difficulty Eyes: No Eye Pain, No Swelling, No Redness, No Vision Changes Cardiovascular: + Chest Pain, + SOB, No Edema, No Palpitations Respiratory: No Cough, No Sputum, No Dyspnea Gastrointestinal: No Nausea, No Vomiting, No Abdominal pain Musculoskeletal: No joint pain, No Myalgias, No Joint Swelling Skin: No Skin Lesions, No rash Neuro: No Weakness, No Dizziness, No Headache Yes all other systems are reviewed and are negative Constitutional: Constitutional: Reports as per [facility] Past Medical History Attestation statement: The following information was validated with the patient. Source: old records reviewed Medical History Anxiety Sinusitis Surgical History History of D&C History of esophagogastroduodenoscopy (EGD) History of tonsillectomy History of wisdom tooth extraction (~09/2020) Family History Family History Father In good health Mother Breast cancer Family/Other Stroke Brother No problems noted. Sister In good health Daughter In good health Maternal Grandmother Arthritis Other Family history non-contributory Social History Social History Household Members: Family Housing: Apartment Alcohol intake: current Alcohol intake frequency: a few times a week Patient Tobacco Use Status: Never used Tobacco Smoked in Last 30 Days: No e-Cigarette/Vaping Use: Never Used Second Hand Smoke Exposure: No Use of substances other than those prescribed or required for medical reasons: No Advance Directives: No service: No Current occupational status: employed Sexual orientation: Lesbian/Morales/Homosexual Cognitive needs: No Hearing needs: No Vision needs: No Physical Exam Vital Signs: Vital Signs: Last Vital Signs Temp 99 F 06/27/23 08:11 Pulse 95 06/27/23 08:11 Resp 16 06/27/23 08:11 BP 143/88 H 06/27/23 08:11 Pulse Ox 96 06/27/23 08:11 O2 Del Method Room Air 06/27/23 08:11 BMI result Body Mass Index 32.7 Const: General: cooperative, healthy appearing, no acute distress, alert and awake Orientation/consciousness: patient oriented x3 Limitations: no limitations HEENT: Head: Yes normal to inspection and Yes atraumatic Ears: hearing grossly normal bilaterally General nose exam: Normal external nose present Face and sinus: Yes normal facial exam Mouth: Normal oral and palatal mucosa present Throat: Yes posterior oropharynx normal, Yes tonsils normal, Yes uvula midline, No peritonsillar mass, No uvula laterally displaced and No uvular edema Eyes: General: appearance normal, both eyes and all related structures EOM: EOMs intact bilaterally Neck: Neck: Yes normal visual inspection and Yes no meningeal signs Resp: Effort & Inspection: normal respiratory effort and no respiratory distress Auscultation: clear to auscultation bilaterally, no crackles and no wheezes Cardio: Rate: regular rate Heart sounds: S1 normal heart sound present and S2 normal heart sound present GI: Inspection: Yes normal to inspection Palpation (GI): Soft to palpation, nontender, no guarding and not rigid Skin: Rashes: no rashes Wounds: no wounds Neuro: General: patient oriented x3, tone normal and no meningeal signs Gait exam (Neuro): Normal gait present Extrem: Other: Right ankle & distal tib/fib with healing ecchymosis and swelling > lateral malleolus. Diffusely tender. ROM intact with some discomfort. Neurovascularly intact. Foot/knee nontender General: Yes no pedal edema and Yes no calf tenderness Course Course Course Narrative: -[id number]--labs reassuring, D-dimer WNL > PE unlikely. Troponin negative -rapid strep negative XR ankle RT min 3V IMPRESSION: 1.? No acute visible fracture or dislocation. 2.? Soft tissue prominence along the lateral malleolus. > [place] wrap applied for comfort/compression XR chest 2V IMPRESSION: No acute cardiopulmonary process. Results discussed with patient including worrisome signs and symptoms and strict return precautions, and when to return to the emergency department. They verbalized understanding and feel safe for discharge at this time. Medications Administered Discontinued Medications Generic Name Dose Route Start Last Admin Trade Name Freq PRN Reason Stop Dose Admin Ketorolac Tromethamine 30 mg 06/27/23 09:56 06/27/23 10:20 Ketorolac Tromethamine 30 Mg/Ml Vial IM 06/27/23 09:57 30 mg ONCE ONE Administration Medical Decision Making Medical Decision Making [facility] Narrative: 33-year-old female to male transgender currently on testosterone with a past medical history of anxiety presenting to the ED complaining of chest pressure and SOB x 4 days. On exam vital signs stable, NAD, nontoxic appearing with physical exam as noted above, lungs CTA, no pitting edema or calf tenderness, right distal tib-fib and ankle with healing ecchymosis/swelling and tenderness. Concern for atypical ACS vs anxiety vs pulmonary embolism with patient being on testosterone. Rule ankle sprain versus fracture. Lower suspicion for CHF, DVT, costochondritis, septic joint/arthritis Plan: EKG, labs including D-dimer, CXR, ankle x-ray Please refer to course for remaining clinical decision making, interpretation of labs/imaging results, and discussions with consultants and/or family members. Differential Diagnosis Differential Diagnoses: The differential diagnosis associated with the presentation includes As above Admission/Observation Consideration of admission/observation: Escalation of care including admission/observation considered Lab Data MDM Lab Attestation statement: I reviewed the patient's lab results. 06/27/23 08:40 08/09/23 08:40 Labs: Lab Results 06/27/23 06/27/23 06/27/23 Range/Units 08:40 08:40 08:40 WBC 7.1 (4.8-10.8) X10*3/uL RBC 4.89 (4.60-5.80) X10*6/uL Hgb 13.4 L (14.0-18.0) g/dl Hct 41.2 L (42.0-52.0) % MCV 84.3 (80.0-98.0) fL MCH 27.4 (27.0-33.0) pg MCHC 32.5 (31.0-36.0) g/dl RDW 13.7 (11.0-16.0) % Plt Count 318 (160-400) X10*3/uL MPV 9.7 (9.4-12.4) fL Immature Gran % (Auto) 0.4 (0.0-0.4) % Neut % (Auto) 55.8 (45-73) % Lymph % (Auto) 33.5 (20-40) % [place] % (Auto) 7.7 (2-11) % Eos % (Auto) 2.2 (0-4) % Baso % (Auto) 0.4 (0-2) % Lymph # (Auto) 2.4 (1.2-4.9) X10*3/uL [place] # (Auto) 0.6 (0.1-1.2) X10*3/uL Eos # (Auto) 0.2 (0.0-0.4) X10*3/uL Baso # (Auto) 0.0 (0.0-0.2) X10*3/uL Abs Immat Gran (auto) 0.03 (0.00-0.03) X10*3/uL Absolute Neuts (auto) 4.0 (2.0-8.3) x10*3/uL Absolute Nucleated RBC 0.000 (0.0-0.012) X10*3/uL Nucleated RBC % (auto) 0.0 (0.0-0.2) /100WBC PT 12.2 (11.1-13.3) SEC INR 1.0 (0.9-1.1) D-Dimer High Sensitivty 205 NG/ML Sodium 138 (135-145) mmol/L Potassium 3.6 (3.3-5.1) mmol/L Chloride 105 (96-108) mmol/L Carbon Dioxide 24 (22-29) mmol/L Anion Gap 13 (12-20) BUN 10 (9-16) mg/dL Creatinine 0.87 (0.5-1.4) mg/dL Estim Creat Clear Calc 167.7 Estimated GFR > 60 Random Glucose 90 (60-115) mg/dL Calcium 9.5 (8.4-10.2) mg/dL Troponin I High Sens (<3.5-35.0) ng/L S. pyogenes GrpA REBEL (Negative) 06/27/23 06/27/23 Range/Units 08:40 08:46 WBC (4.8-10.8) X10*3/uL RBC (4.60-5.80) X10*6/uL Hgb (14.0-18.0) g/dl Hct (42.0-52.0) % MCV (80.0-98.0) fL MCH (27.0-33.0) pg MCHC (31.0-36.0) g/dl RDW (11.0-16.0) % Plt Count (160-400) X10*3/uL MPV (9.4-12.4) fL Immature Gran % (Auto) (0.0-0.4) % Neut % (Auto) (45-73) % Lymph % (Auto) (20-40) % [place] % (Auto) (2-11) % Eos % (Auto) (0-4) % Baso % (Auto) (0-2) % Lymph # (Auto) (1.2-4.9) X10*3/uL [place] # (Auto) (0.1-1.2) X10*3/uL Eos # (Auto) (0.0-0.4) X10*3/uL Baso # (Auto) (0.0-0.2) X10*3/uL Abs Immat Gran (auto) (0.00-0.03) X10*3/uL Absolute Neuts (auto) (2.0-8.3) x10*3/uL Absolute Nucleated RBC (0.0-0.012) X10*3/uL Nucleated RBC % (auto) (0.0-0.2) /100WBC PT (11.1-13.3) SEC INR (0.9-1.1) D-Dimer High Sensitivty NG/ML Sodium (135-145) mmol/L Potassium (3.3-5.1) mmol/L Chloride (96-108) mmol/L Carbon Dioxide (22-29) mmol/L Anion Gap (12-20) BUN (9-16) mg/dL Creatinine (0.5-1.4) mg/dL Estim Creat Clear Calc Estimated GFR Random Glucose (60-115) mg/dL Calcium (8.4-10.2) mg/dL Troponin I High Sens < 2.7 (<3.5-35.0) ng/L S. pyogenes GrpA REBEL Negative (Negative) Independent Interpretation I performed an independent interpretation of an: EKG (My interpretation EKG is normal sinus rhythm at a rate of 77. NE interval 148. QTC 4 0 to. Nonspecific T-wave abnormality in lateral leads. No STEMI) Radiology Impression Discussion of test interpretation with radiology: I have reviewed the radiologist's reading. External Record Review External record reviewed: Inpatient record, Office record, Outpatient record, Prior outpatient labs, Prior outpatient radiology, Primary care record and Outside ED record Tests considered The following testing was considered but not selected: As above Discharge Plan Discharge Clinical Impression: Chest pain, Shortness of breath Patient Disposition: Home, Self-Care Instructions: Chest Pain (DC), Shortness of Breath (ED) Additional Instructions: Your blood work is reassuring your chest x-ray is unremarkable Your x-ray shows soft tissue swelling no fracture > wear Galileo wrap for comfort and stability Please follow-up with her doctor/regional production manager If symptoms persist or worsen/become more constant you have swelling in your legs, constant worsening chest pain/shortness of breath return to the ED Prescriptions: No Action dicyclomine 20 mg tablet 20 mg PO QID PRN (Reason: abdominal pain) Qty: 90 3RF senna 8.6 mg capsule 17.2 mg PO BEDTIME 30 Days Qty: 60 6RF ketoconazole 2 % shampoo 1 appl topical 3XW 30 Days Qty: 120 1RF famotidine [Pepcid] 40 mg tablet 40 mg PO BID 30 Days Qty: 60 6RF hydrocortisone 2.5 % cream 1 appl topical TID PRN (Reason: itching) Qty: 28 0RF cyclobenzaprine 10 mg tablet 10 mg PO Q8H Qty: 10 0RF sertraline 100 mg tablet 100 mg PO DAILY Qty: 60 0RF lorazepam 1 mg tablet 1 mg PO DAILY PRN (Reason: anxiety) 21 Days Qty: 21 0RF ibuprofen 600 mg tablet 600 mg PO Q8H PRN (Reason: pain) Qty: 20 0RF testosterone cypionate 200 mg/mL oil 50 mg subcut QWEEK (DME) BD Luer-Grace Syringe 1 mL syringe See Rx Instructions .ROUTE DIRECTED Qty: 1000 Rx Instructions: As directed (DME) needle (disp) 23 gauge [Hypodermic [place]] 23 gauge x 1 needle See Rx Instructions .ROUTE DIRECTED Qty: 100 Rx Instructions: As directed (DME) BD Regular Bevel [place] 25 gauge x 5/8 needle See Rx Instructions .ROUTE DIRECTED Qty: 1000 Rx Instructions: As directed simethicone 180 mg capsule 180 mg PO .TIDAC 30 Days Qty: 90 6RF ondansetron 8 mg tablet,disintegrating 8 mg PO Q12H PRN (Reason: nausea and vomiting) 5 Days Qty: 10 6RF meclizine 25 mg tablet 25 mg PO TID PRN (Reason: dizziness) Qty: 90 6RF Referrals: Rodolfo Chirinos PA-C [Primary Care Provider] - Interventions: ED Discharge Assessment Last Done: 06/27/23 10:23 Discharge Date/Time: 06/27/23 10:24
[2023-06-27 08:44] LABS: MANUAL DIFF FLAG NO
[2023-06-27 08:45] LABS: Basophils Percent Auto 0.4 % (0-2); Eosinophils Absolute Auto 0.2 X10*3/uL (0.0-0.4); Eosinophils Percent Auto 2.2 % (0-4); Hematocrit 41.2 % (42.0-52.0); Hemoglobin 13.4 g/dl (14.0-18.0); Imm Gran Abs Auto 0.03 X10*3/uL (0.00-0.03); Imm Gran Pct Auto 0.4 % (0.0-0.4); Lymphocytes Absolute Auto 2.4 X10*3/uL (1.2-4.9); Lymphocytes Percent Auto 33.5 % (20-40); Mean Corpuscular HGB Conc 32.5 g/dl (31.0-36.0); Mean Corpuscular Hemoglobin 27.4 pg (27.0-33.0); Mean Corpuscular Volume 84.3 fL (80.0-98.0); Mean Platelet Volume 9.7 fL (9.4-12.4); Monocytes Absolute Auto 0.6 X10*3/uL (0.1-1.2); Monocytes Percent Auto 7.7 % (2-11); Neutrophils Percent Auto 55.8 % (45-73); Platelet Count 318 X10*3/uL (160-400); Red Blood Count 4.89 X10*6/uL (4.60-5.80); Red Cell Distribution Width 13.7 % (11.0-16.0); White Blood Count 7.1 X10*3/uL (4.8-10.8)
[2023-06-27 08:50] LABS: Prothrombin Time 12.2 SEC (11.1-13.3)
[2023-06-27 08:53] LABS: D Dimer High Sensitivity 205 NG/ML
[2023-06-27 08:58] LABS: Anion Gap 13 (12-20); Blood Urea Nitrogen 10 mg/dL (9-16); Calcium 9.5 mg/dL (8.4-10.2); Carbon Dioxide 24 mmol/L (22-29); Chloride 105 mmol/L (96-108); Creatinine Clr Calc Pharmacy 167.7; Estimated Glomerular Filt Rate > 60; Glucose Random 90 mg/dL (60-115); Potassium 3.6 mmol/L (3.3-5.1); Sodium 138 mmol/L (135-145)
[2023-06-27 09:19] LABS: IDNOW Serial# 08D9AD1C; Strep A Nucleic Acid Negative (Negative)
[2023-06-27 09:27] LABS: Troponin-I High Sensitivity < 2.7 ng/L (<3.5-35.0)
[2023-06-27] MEDS: Ketorolac Tromethamine 30 MG/ML VIAL IM (10:20)
== END 2023-06-27 10:24 | disposition home or self-care (01) ==
PROVIDERS: Physician Assistant; Emergency Provider Student in an Organized Health Care Education/Training Program; PCP Physician Assistant
DX: R07.89 Other chest pain (principal); R06.02 Shortness of breath; R07.0 Pain in throat; M25.571 Pain in right ankle and joints of right foot; Z79.899 Other long term (current) drug therapy
CPT/HCPCS: 36415; 71046; 73610; 80048; 84484; 85025; 85379; 85610; 87651; 93005; 96372; 99284; J1885

== ENCOUNTER → 2023-06-27 07:59 | Outpatient (BNV) | payer OTHER, SELFPAY | PROVIDERS: Emergency Provider Student in an Organized Health Care Education/Training Program; PCP Physician Assistant; Visit Provider Internal Medicine Cardiovascular Disease | DX: R94.31 Abnormal electrocardiogram [ECG] [EKG] (principal) | CPT/HCPCS: 93010 ==

== ENCOUNTER 2023-10-03 16:16 | Outpatient (AMB) | payer OTHER, SELFPAY ==
--- NOTE | 2023-10-03 16:17 | A.OFFPC_ITS ---
Vital Signs 10/03/23 16:18 Height 6 ft 3 in Weight 260 lb BMI 32.5 BP 136/84 Blood Pressure Location Lt brachial Position Sitting Pulse 105 H Pulse Source Pulse Oximeter Pulse Oximetry (%) 98 Oxygen Delivery Method Room Air Intake Visit Reasons: Rash underneath right eye Intake Note: pt states rash under right eye X 2 months Operative Supervisor Required: No Allergies Penicillins [PENICILLINS] Allergy (Unknown, Verified 10/03/23 16:26) HIVES AND SWELLING Sulfa (Sulfonamide Antibiotics) Allergy (Unknown, Verified 10/03/23 16:26) Anaphylaxis sulfamethoxazole [From BACTRIM] Allergy (Unknown, Verified 10/03/23 16:26) HALLUCINATIONS/HIVES trimethoprim [From BACTRIM] Allergy (Unknown, Verified 10/03/23 16:26) HALLUCINATIONS/HIVES Medication List - Last Reconciled 10/03/23 by APOORVA Best cyclobenzaprine 10 mg PO Q8H dicyclomine 20 mg PO QID PRN famotidine (Pepcid) 40 mg PO BID 30 days hydrocortisone 2.5% 1 appl topical TID PRN ibuprofen 600 mg PO Q8H PRN ketoconazole 2% 1 appl topical 3XW 30 days lorazepam 1 mg PO DAILY PRN 21 days meclizine 25 mg PO TID PRN needle (disp) 23 gauge (Hypodermic [place]) As directed needle (disp) 25 gauge (BD Regular Bevel [place]) As directed ondansetron 8 mg PO Q12H PRN 5 days sennosides (senna) 17.2 mg (2 x 8.6 mg) PO BEDTIME 30 days sertraline 100 mg PO DAILY 90 days simethicone 180 mg PO .TIDAC 30 days syringe (disposable) (BD Luer-Grace Syringe) As directed testosterone cypionate 50 mg subcut QWEEK Tobacco use date assessed: 10/03/23 HPI Rash underneath right eye HPI Details 33-year-old patient transitioning from f emale to male presents today with rash underneath his right eye for the past 2 months. Patient of PITER Chirinos. medical history significant for GERD, anxiety, vertigo-needs refill on meclizine. Patient reports that rash is itchy usually constant for the past 2 months, he did use aveeno lotion with very mild improvement, reports rash int ermittent dry, denies this rash in the past. In addition he reports that sertraline 100 mg daily is not helping with anxiety, interested if sertraline can be increased, also takes lorazepam daily as needed, has therapist. In addition he reports migraine headaches for the past 5 years, and worsening about 1 year ago, reports Excedrin slightly help, Tylenol does not help. Reports last migraine headache yesterday with sensitivity to light, feels better in a dark room. No headache now. [facility] Medical History Sinusitis Anxiety Surgical History History of D&C History of esophagogastroduodenoscopy (EGD) History of tonsillectomy History of wisdom tooth extraction (~09/2020) Family History Father In good health Mother Breast cancer Family/Other Stroke Brother No problems noted. Sister In good health Daughter In good health Maternal Grandmother Arthritis Other Family history non-contributory Social History Household Members: Family Housing: Apartment Alcohol intake: current Alcohol intake frequency: a few times a week Patient Tobacco Use Status: Never used Tobacco e-Cigarette/Vaping Use: Never Used Second Hand Smoke Exposure: No service: No Current occupational status: employed Sexual orientation: Lesbian/Morales/Homosexual Cognitive needs: No Hearing needs: No Vision needs: No Questionnaire Thrive Questionnaire Date Thrive assessed: 01/01/23 AUDIT C Alcohol Use Questionnaire (AUDIT-C) 1. How often do you have a drink containing alcohol?: Never 3. How often do you have six or more drinks on one occasion?: Never Total Score: 0 Score Reviewed/Action Taken: No VICKY-7 AMB Questionnaire VICKY-7 Date VICKY - 7 assessed: 01/01/23 Source: Developed by Drs. David Ku, Cherelle King, Remington Louis and colleagues, with an educational chai from [employer]. Review of Systems Const Denies body aches, Denies chills, Denies fever(s) and Reports headache(s) (Intermittent) ENT Denies dizziness, Denies otalgia, Reports headache(s) (Intermittent), Denies nasal discharge, Denies sinus pain and Denies sore throat Card Denies chest pain, Denies edema, Denies lightheadedness and Denies dyspnea Resp Denies cough, Denies dyspnea and Denies wheezing GI Denies abdominal pain Denies dysuria Musc Denies myalgias Skin/Breast Reports rash Neuro Denies dizziness and Reports headache(s) (Intermittent) Psych Reports anxiety Aller/Immun Denies wheezing Physical exam (Primary Care) Vital Signs: Last Vital Signs Pulse 105 H 10/03/23 16:18 BP 136/84 10/03/23 16:18 Pulse Ox 98 10/03/23 16:18 Oxygen Delivery Method Room Air 10/03/23 16:18 BMI result Body Mass Index 32.5 Tobacco/Smoking Status: Tobacco use Status Tobacco use date assessed 10/03/23 10/03/23 16:24 Patient Tobacco Use Status Never used Tobacco 10/03/23 16:24 e-Cigarette/Vaping Use Never Used 10/03/23 16:24 Thrive Assessment: Date of Thrive Assessment Date Thrive assessed 01/01/23 10/03/23 16:24 Const General: cooperative and no acute distress Orientation/consciousness: patient oriented x3 HENMT Head: Yes normocephalic and Yes atraumatic Face and sinus: Yes sinuses nontender Mouth: oropharynx normal and moist mucous membranes Throat: Yes posterior oropharynx normal Eyes Other: Has colorful contact lenses on General: appearance normal, both eyes and all related structures EOM: EOMs intact bilaterally Neck Neck: Yes normal visual inspection and Yes full ROM Resp Effort & Inspection: normal respiratory effort and able to speak in complete sentences Auscultation: clear to auscultation bilaterally, no crackles, no rales, no rhonchi and no wheezes Cardio Rate: regular rate Rhythm: regular rhythm Heart sounds: S1 normal heart sound present and S2 normal heart sound present GI Auscultation: normal bowel sounds Skin Other: Underneath right eye with slightly increased pigmentation and mild dryness noted, no signs of infection noted, no erythema Neuro General: patient oriented x3, gait normal and moves all extremities Cranial nerves: Yes Bilaterally intact EOM present, Yes Midline tongue present, Yes Symmetric palate elevation present and Yes Ability to bilaterally rotate head present Gait exam (Neuro): Normal gait present Extrem General: Yes full ROM Assessment and Plan Assessment & Plan (1) Insomnia: Code(s): G47.00 - Insomnia, unspecified Plan: Patient also reported sleeping difficulties Start hydroxyzine at bedtime p.r.n. Sleep hygiene (2) Generalized anxiety disorder: Code(s): F41.1 - Generalized anxiety disorder Plan: Increase sertraline to 150 mg daily Continue lorazepam daily p.r.n. Continue to follow-up with therapist (3) BPPV (benign paroxysmal positional vertigo): Code(s): H81.10 - Benign paroxysmal vertigo, unspecified ear Qualifiers: Laterality: bilateral Qualified Code(s): H81.13 - Benign paroxysmal vertigo, bilateral Plan: Stable with meclizine t.i.d. p.r.n. (4) Rash: Code(s): R21 - Rash and other nonspecific skin eruption Plan: Underneath right eye with slightly increased pigmentation and mild dryness noted, no signs of infection noted, no erythema ? Mild eczema Patient can try [id number] cortisone cream at bedtime for 2 weeks - do not put cream in the eye, use small amount on the rash area During the day he can use Vaseline cream daily around the eye - do not put in the eye Notify office if no improvement in 2 weeks, will refer to Dermatology (5) Headache: Code(s): R51.9 - Headache, unspecified Plan: Patient reports migraine headaches for the past 5 years, last migraine headache yesterday Reports some improvement with Excedrin p.r.n. He can alternate Excedrin with ibuprofen 600 mg every 8 hours as needed Plan Follow-up with PCP in 3 months or sooner as needed Medications: New hydroxyzine HCl 25 mg PO BEDTIME PRN 14 tabs 0RF insomnia G47.00 - Insomnia, unspecified sertraline 50 mg PO DAILY 30 tabs 2RF F41.1 - Generalized anxiety disorder Refilled meclizine 25 mg PO TID PRN 90 tabs 6RF dizziness ibuprofen 600 mg PO Q8H PRN 20 tabs 0RF pain M54.2 - Cervicalgia Coding Level of Care Code Est Pt Level 4 (44937) Diagnoses Insomnia G47.00 Generalized anxiety disorder F41.1 Benign paroxysmal positional vertigo due to bilateral vestibular disorder H81.13 Laterality: bilateral Rash R21 Headache R51.9
[2023-10-03 16:18] VITALS: BP 136/84; PULSE 105; O2SAT 98; BMI 32.5
== END 2023-10-03 16:57 | disposition home or self-care (01) ==
PROVIDERS: PCP Physician Assistant; Visit Provider Nurse Practitioner Family
DX: G47.00 Insomnia, unspecified (principal); F41.1 Generalized anxiety disorder; H81.13 Benign paroxysmal vertigo, bilateral; R21 Rash and other nonspecific skin eruption; R51.9 Headache, unspecified; Z90.89 Acquired absence of other organs
CPT/HCPCS: 99214

== ENCOUNTER 2023-11-22 07:37 | Emergency (ER) | payer OTHER, SELFPAY ==
[2023-11-22 07:59] VITALS: BP 142/76; PULSE 76; RESP 18; TEMP 36; O2SAT 95; BMI 32.9
--- NOTE | 2023-11-22 11:13 | ED.GENADULT ---
HPI - General Adult General Chief complaint: General Medical Stated complaint: Cough, difficulty breathing Time Seen by Provider: 11/22/23 10:53 Source: patient and RN notes reviewed Mode of arrival: ambulatory Limitations: no limitations History of Present Illness HPI narrative: This is a 33-year-old female assigned at , transitioning male, presenting to the emergency department complaints of ongoing congestion and productive cough for the last month. Patient also endorsing some dysuria for the last 3 weeks. Patient reports that about 1 month ago they developed nasal congestion and runny nose. Since then they have now had a productive cough with yellow colored sputum. Denies any ear pain, sore throat, chest pain, shortness of breath, abdominal pain, diarrhea or vomiting. Reporting decreased appetite secondary to symptoms. MD complaint: Congestion, cough Onset (ago): month(s) Radiation: non-radiation Relieving factors: none Exacerbating factors: none Associated symptoms: cough, headaches, loss of appetite, nausea/vomiting and shortness of breath Treatments prior to arrival: none Related Data Home Medications Medication Instructions Recorded Confirmed testosterone cypionate 200 mg/mL 50 mg subcut QWEEK 10/27/22 10/03/23 intramuscular oil needle (disp) 23 gauge 23 gauge x #100 ea 03/02/23 10/03/23 1 (Hypodermic [place]) needle (disp) 25 gauge 25 gauge x #1,000 ea 03/02/23 10/03/23 5/8 (BD Regular Bevel [place]) syringe (disposable) 1 mL (BD #1,000 ea 03/02/23 10/03/23 Luer-Grace Syringe) Previous Rx's Medication Instructions Recorded ondansetron 8 mg disintegrating 8 mg PO Q12H PRN nausea and 03/02/23 tablet vomiting 5 days #10 tabs simethicone 180 mg capsule 180 mg PO .TIDAC 30 days #90 caps 03/02/23 dicyclomine 20 mg tablet 20 mg PO QID PRN abdominal pain 03/28/23 #90 tabs sennosides 8.6 mg capsule (senna) 17.2 mg (2 x 8.6 mg) PO BEDTIME 03/28/23 constipation 30 days #60 caps cyclobenzaprine 10 mg tablet 10 mg PO Q8H Muscle spasm #10 tabs 05/04/23 hydrocortisone 2.5 % topical cream 1 appl topical TID PRN itching #28 05/29/23 grams famotidine 40 mg tablet (Pepcid) 40 mg PO BID 30 days #60 tabs 06/11/23 ketoconazole 2 % shampoo 1 appl topical 3XW 30 days #120 mL 07/25/23 sertraline 100 mg tablet 100 mg PO DAILY 90 days #90 tabs 08/15/23 hydroxyzine HCl 25 mg tablet 25 mg PO BEDTIME PRN insomnia #14 10/03/23 tabs ibuprofen 600 mg tablet 600 mg PO Q8H PRN pain #20 tabs 10/03/23 meclizine 25 mg tablet 25 mg PO TID PRN dizziness #90 tabs 10/03/23 sertraline 50 mg tablet 50 mg PO DAILY #30 tabs 10/03/23 benzonatate 200 mg capsule 200 mg PO TID PRN cough #14 caps 11/22/23 ciprofloxacin HCl 500 mg tablet 500 mg PO BID 7 days #14 tabs 11/22/23 guaifenesin 600 mg tablet, 600 mg PO Q12H PRN cough 5 days 11/22/23 extended release 12 hr #10 tabs lorazepam 1 mg tablet 1 mg PO DAILY PRN anxiety 21 days 11/22/23 #21 tabs Allergies Allergy/AdvReac Type Severity Reaction Status Date / Time Penicillins [PENICILLINS] Allergy Unknown HIVES AND Verified 10/03/23 16:26 SWELLING Sulfa (Sulfonamide Allergy Unknown Anaphylaxis Verified 10/03/23 16:26 Antibiotics) sulfamethoxazole Allergy Unknown HALLUCINATI Verified 10/03/23 16:26 [From BACTRIM] ONS/HIVES trimethoprim [From BACTRIM] Allergy Unknown HALLUCINATI Verified 10/03/23 16:26 ONS/HIVES Review of Systems Review of Systems: Yes all other systems are reviewed and are negative Constitutional: Constitutional: Reports as per [facility] Past Medical History Attestation statement: The following information was validated with the patient. Onset Date is defined in the Problem List Problems that require an onset date and time if occurred within 24 hrs of arrival to the ED Aortic Dissection and Rupture; Neurologic impairment; Cardiopulmonary Arrest; Endotracheal Intubation; Insertion or Replacement of Mechanical Circulatory Assist Device Medical History Sinusitis Anxiety Surgical History History of D&C History of esophagogastroduodenoscopy (EGD) History of tonsillectomy History of wisdom tooth extraction (~09/2020) Family History Family History Father In good health Mother Breast cancer Family/Other Stroke Brother No problems noted. Sister In good health Daughter In good health Maternal Grandmother Arthritis Other Family history non-contributory Social History Social History Household Members: Family Housing: Apartment Alcohol intake: current Alcohol intake frequency: a few times a week Patient Tobacco Use Status: Never used Tobacco e-Cigarette/Vaping Use: Never Used Second Hand Smoke Exposure: No Advance Directives: No service: No Current occupational status: employed Sexual orientation: Lesbian/Morales/Homosexual Cognitive needs: No Hearing needs: No Vision needs: No Physical Exam ED Vital Signs: Vital Signs - 24 hr 11/22/23 07:59 11/22/23 12:32 Temperature 96.8 F 97.9 F Pulse Rate 76 68 Respiratory Rate 18 16 Blood Pressure 142/76 H 128/72 Pulse Oximetry 95 96 Oxygen Delivery Method Room Air Room Air BMI result Body Mass Index 32.9 Const General: cooperative, comfortable and no acute distress Orientation/consciousness: patient oriented x3 Limitations: no limitations HENMT Head: Yes normal to inspection, Yes normocephalic and Yes atraumatic Ears: hearing grossly normal bilaterally and TM's normal bilaterally General nose exam: Normal external nose present Face and sinus: Yes normal facial exam Mouth: Normal oral and palatal mucosa present, oropharynx normal and moist mucous membranes Throat: Yes posterior oropharynx normal, Yes tonsils normal and Yes uvula midline Eyes General: appearance normal, both eyes and all related structures Eyelids: Yes eyelids normal Conjunctivae: conjunctivae normal Sclerae: sclerae normal Pupils: Equal, round and reactive pupils present EOM: EOMs intact bilaterally Neck Neck: Yes normal visual inspection, Yes full ROM and Yes no lymphadenopathy Lymphatic: no lymphadenopathy noted Chest Chest palpation & inspection: normal inspection of the chest Resp Other: Diminished lung sounds Effort & Inspection: normal respiratory effort and able to speak in complete sentences Cardio Rate: regular rate Rhythm: regular rhythm Heart sounds: S1 normal heart sound present and S2 normal heart sound present GI Other: Abdomen is soft, nontender, nondistended Inspection: Yes normal to inspection Skin General skin exam: no rashes or lesions noted Trauma: no lacerations or abrasions Wounds: no wounds Neuro General: patient oriented x3 and moves all extremities Cranial nerves: Yes Equal, round and reactive pupils present Extrem General: Yes normal to inspection Right upper extremity: normal to inspection Left upper extremity: normal to inspection Right lower extremity: normal to inspection Left lower extremity: normal to inspection Medical Decision Making Medical Decision Making [facility] Narrative: This is a 33-year-old female as side at , presenting to the emergency department for evaluation of ongoing cough and congestion for the last month. Also endorsing dysuria and urinary frequency the last 3 weeks. Denies any unusual discharge. On arrival, patient nontoxic appearing, blood pressure mildly elevated at 142/76, all other vital signs within normal limits. Differential diagnoses include URI, bronchitis, pneumonia, urinary tract infection. Urine appears to be infected, given symptomatic, will treat with Cipro given allergies. Chest x-ray unremarkable. All other workup normal. Will treat for urinary tract infection and URI. Given return precautions. Patient understands agrees with plan. Patient stable for discharge. Plan: Labs, chest x-ray, viral swabs Differential Diagnosis Differential Diagnoses: The differential diagnosis associated with the presentation includes See above Admission/Observation Consideration of admission/observation: Escalation of care including admission/observation considered Lab Data [facility] Lab Attestation statement: I reviewed the patient's lab results. No leukocytosis, stable H&H, chemistry within normal limits. Negative COVID and flu 11/22/23 10:58 11/22/23 10:58 Labs: Lab Results 11/22/23 11/22/23 Range/Units 08:38 10:58 WBC 8.1 (4.8-10.8) X10*3/uL RBC 5.14 (4.60-5.80) X10*6/uL Hgb 13.7 L (14.0-18.0) g/dl Hct 42.4 (42.0-52.0) % MCV 82.5 (80.0-98.0) fL MCH 26.7 L (27.0-33.0) pg MCHC 32.3 (31.0-36.0) g/dl RDW 14.0 (11.0-16.0) % Plt Count 360 (160-400) X10*3/uL MPV 9.6 (9.4-12.4) fL Immature Gran % (Auto) 0.5 H (0.0-0.4) % Neut % (Auto) 59.2 (45-73) % Lymph % (Auto) 31.1 (20-40) % [place] % (Auto) 6.6 (2-11) % Eos % (Auto) 2.0 (0-4) % Baso % (Auto) 0.6 (0-2) % Lymph # (Auto) 2.5 (1.2-4.9) X10*3/uL [place] # (Auto) 0.5 (0.1-1.2) X10*3/uL Eos # (Auto) 0.2 (0.0-0.4) X10*3/uL Baso # (Auto) 0.1 (0.0-0.2) X10*3/uL Abs Immat Gran (auto) 0.04 H (0.00-0.03) X10*3/uL Absolute Neuts (auto) 4.8 (2.0-8.3) x10*3/uL Absolute Nucleated RBC 0.000 (0.0-0.012) X10*3/uL Nucleated RBC % (auto) 0.0 (0.0-0.2) /100WBC Sodium 136 (135-145) mmol/L Potassium 3.8 (3.3-5.1) mmol/L Chloride 104 (96-108) mmol/L Carbon Dioxide 23 (22-29) mmol/L Anion Gap 13 (12-20) BUN 8 L (9-16) mg/dL Creatinine 0.82 (0.5-1.4) mg/dL Estim Creat Clear Calc 178.4 Estimated GFR > 60 Random Glucose 82 (60-115) mg/dL Calcium 10.1 D (8.4-10.2) mg/dL Total Bilirubin 0.6 (0.0-1.0) mg/dL AST 23 (5-37) U/L ALT 14 (0-40) U/L Alkaline Phosphatase 60 (39-117) U/L Total Protein 7.8 (6.5-8.0) g/dL Albumin 4.5 (3.5-5.0) g/dL Urine Color Yellow Urine Appearance Clear Urine pH 5.5 (5.0-9.0) Ur Specific [place] 1.015 (1.005-1.025) Urine Protein Negative (Neg-Trace) mg/dL Urine Glucose (UA) Negative (Negative) mg/dL Urine Ketones Negative (Negative) mg/dL Urine Blood Large (3+) H (Negative) Urine Nitrite Negative (Negative) Ur Leukocyte Esterase Moderate (2+) H (Negative) Urine RBC >20 H (0-2) /HPF Urine WBC 11-20 H (0-5) /HPF Ur Squamous Epith Cells 0-2 (0-2) /HPF Urine Bacteria None Seen (None Seen) Hyaline Casts 0-2 (0-2) /LPF COVID-19 (PETRA) Negative (Negative) COVID-19 Clin Com See Note Influenza Type A (REBEL) Negative (Negative) Influenza Type B (REBEL) Negative (Negative) Influenza A & B Note See Note Radiology Impression Discussion of test interpretation with radiology: I have reviewed the radiologist's reading. Radiologist Impression: EXAMINATION: XR CHEST CLINICAL INFORMATION: Productive cough COMPARISON: 06/27/2023 TECHNIQUE: 2 views of the chest were obtained. FINDINGS: No significant abnormality is noted involving the heart, lungs, mediastinum, bony thorax or soft tissues. XR/XR chest 2V IMPRESSION: Unremarkable examination. Dictated By: Stephen Guerrero MD Discharge Plan Discharge Clinical Impression: Acute upper respiratory infection, Acute UTI Patient Disposition: Home, Self-Care Instructions: Urinary Tract Infection in Women (ED), Upper Respiratory Infection (ED) Additional Instructions: Your seen in the emergency department due to ongoing congestion and cough. You likely have an upper respiratory infection. Given that your have been symptomatic for the last month, will treat with an your sending her urine out for further testing, we will call you if we have to switch her antibiotic. Your chest x-ray does not show pneumonia. You tested negative for COVID, RSV, and flu. Your urine appears to be infected, please take prescribed antibiotic as directed. Drink plenty of fluids get plenty of rest. If any new or worsening symptoms occur including but not limited to chest pain, shortness of breath, please return for re-evaluation. Prescriptions: New ciprofloxacin HCl 500 mg tablet 500 mg PO BID 7 Days Qty: 14 0RF guaifenesin 600 mg tablet extended release 12hr 600 mg PO Q12H PRN (Reason: cough) 5 Days Qty: 10 0RF benzonatate 200 mg capsule 200 mg PO TID PRN (Reason: cough) Qty: 14 0RF No Action dicyclomine 20 mg tablet 20 mg PO QID PRN (Reason: abdominal pain) Qty: 90 3RF senna 8.6 mg capsule 17.2 mg PO BEDTIME 30 Days Qty: 60 6RF famotidine [Pepcid] 40 mg tablet 40 mg PO BID 30 Days Qty: 60 6RF ketoconazole 2 % shampoo 1 appl topical 3XW 30 Days Qty: 120 1RF sertraline 100 mg tablet 100 mg PO DAILY 90 Days Qty: 90 1RF lorazepam 1 mg tablet 1 mg PO DAILY PRN (Reason: anxiety) 21 Days Qty: 21 1RF hydrocortisone 2.5 % cream 1 appl topical TID PRN (Reason: itching) Qty: 28 0RF cyclobenzaprine 10 mg tablet 10 mg PO Q8H Qty: 10 0RF meclizine 25 mg tablet 25 mg PO TID PRN (Reason: dizziness) Qty: 90 6RF ibuprofen 600 mg tablet 600 mg PO Q8H PRN (Reason: pain) Qty: 20 0RF sertraline 50 mg tablet 50 mg PO DAILY Qty: 30 2RF hydroxyzine HCl 25 mg tablet 25 mg PO BEDTIME PRN (Reason: insomnia) Qty: 14 0RF testosterone cypionate 200 mg/mL oil 50 mg subcut QWEEK (DME) BD Luer-Grace Syringe 1 mL syringe See Rx Instructions .ROUTE DIRECTED Qty: 1000 Rx Instructions: As directed (DME) needle (disp) 23 gauge [Hypodermic [place]] 23 gauge x 1 needle See Rx Instructions .ROUTE DIRECTED Qty: 100 Rx Instructions: As directed (DME) BD Regular Bevel [place] 25 gauge x 5/8 needle See Rx Instructions .ROUTE DIRECTED Qty: 1000 Rx Instructions: As directed simethicone 180 mg capsule 180 mg PO .TIDAC 30 Days Qty: 90 6RF ondansetron 8 mg tablet,disintegrating 8 mg PO Q12H PRN (Reason: nausea and vomiting) 5 Days Qty: 10 6RF Interventions: ED Discharge Assessment Last Done: 11/22/23 13:15 Discharge Date/Time: 11/22/23 13:15
[2023-11-22 12:32] VITALS: BP 128/72; PULSE 68; RESP 16; TEMP 36.6; O2SAT 96
== END 2023-11-22 13:15 | disposition home or self-care (01) ==
PROVIDERS: Emergency Provider Student in an Organized Health Care Education/Training Program; PCP Physician Assistant
DX: J06.9 Acute upper respiratory infection, unspecified (principal); N39.0 Urinary tract infection, site not specified; R05.9 Cough, unspecified; Z11.52 Encounter for screening for COVID-19; F64.0 Transsexualism; Z79.890 Hormone replacement therapy; Z79.899 Other long term (current) drug therapy
CPT/HCPCS: 36415; 71046; 80053; 81001; 85025; 87086; 87502; 87635; 99283

== ENCOUNTER 2024-03-04 10:00 | Outpatient (AMB) | payer OTHER, SELFPAY ==
[2024-03-04 10:01] VITALS: BP 110/82; PULSE 101; O2SAT 95; BMI 31.1
--- NOTE | 2024-03-04 10:01 | MHC.PC.OV ---
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: No Allergies Penicillins [PENICILLINS] Allergy (Unknown, Verified 03/04/24 10:09) HIVES AND SWELLING Sulfa (Sulfonamide Antibiotics) Allergy (Unknown, Verified 03/04/24 10:09) Anaphylaxis sulfamethoxazole [From BACTRIM] Allergy (Unknown, Verified 03/04/24 10:09) HALLUCINATIONS/HIVES trimethoprim [From BACTRIM] Allergy (Unknown, Verified 03/04/24 10:09) HALLUCINATIONS/HIVES Medication List - Last Reconciled 03/04/24 by Rodolfo Chirinos PA-C cyclobenzaprine 10 mg PO Q8H dicyclomine 20 mg PO QID PRN famotidine (Pepcid) 40 mg PO BID 30 days hydrocortisone 2.5% 1 appl topical TID PRN hydroxyzine HCl 25 mg PO BEDTIME PRN ibuprofen 600 mg PO Q8H PRN ketoconazole 2% 1 appl topical 3XW 30 days lorazepam 1 mg PO DAILY PRN 21 days meclizine 25 mg PO TID PRN needle (disp) 23 gauge (Hypodermic [place]) As directed needle (disp) 25 gauge (BD Regular Bevel [place]) As directed nitrofurantoin macrocrystal 100 mg PO BID 7 days ondansetron 8 mg PO Q12H PRN 5 days sennosides (senna) 17.2 mg (2 x 8.6 mg) PO BEDTIME 30 days sertraline 100 mg PO DAILY 90 days simethicone 180 mg PO .TIDAC 30 days syringe (disposable) (BD Luer-Grace Syringe) As directed testosterone cypionate 50 mg subcut QWEEK Tobacco use date assessed: 03/04/24 Dental Screening Dental Screen Date: 03/04/24 Did you have a dental visit in the last 12 months?: No Did you have a dental problem in the last 6 months where you did not have access to dental care?: No HPI Med review HPI Details Patient is a 33-year-old female here today for a follow-up visit.? Patient has a past medical history significant for generalized anxiety disorder, body dysphoria, transgender, GERD, IBS. Body dysphoria/ transgender: Now want testosterone therapy through a [facility]. Now he feels much more himself. VICKY:? He reports her anxiety occurs on a daily basis.? Has to use lorazepam every other day.? We did discuss the habit-forming nature of lorazepam and he agrees to only use this on a as needed basis. He reports Zoloft is helpful on controlling anxiety though would like another medication to help for better effect. FOR[facility]LY [facility], [facility] Medical History Sinusitis Anxiety Surgical History History of D&C History of esophagogastroduodenoscopy (EGD) History of tonsillectomy History of wisdom tooth extraction (~09/2020) Family History Father In good health Mother Breast cancer Family/Other Stroke Brother No problems noted. Sister In good health Daughter In good health Maternal Grandmother Arthritis Other Family history non-contributory Social History Household Members: Family Housing: Apartment Alcohol intake: current Alcohol intake frequency: a few times a week Patient Tobacco Use Status: Never used Tobacco e-Cigarette/Vaping Use: Never Used Second Hand Smoke Exposure: No service: No Current occupational status: employed Sexual orientation: Lesbian/Morales/Homosexual Cognitive needs: No Hearing needs: No Vision needs: No Questionnaire PHQ-9 Over the last 2 weeks, how often have you been bothered by any of the following problems? 1. Little interest or pleasure in doing things: not at all 2. Feeling down, depressed, or hopeless: not at all 3. Trouble falling or staying asleep, or sleeping too much: not at all 4. Feeling tired or having little energy: not at all 5. Poor appetite or overeating: not at all 6. Feeling bad about yourself - or that you are a failure or have let yourself or your family down: not at all 7. Trouble concentrating on things, such as reading the newspaper or watching television: not at all 8. Moving or speaking so slowly that other people could have noticed. Or the opposite - being so fidgety or restless that you have been moving around a lot more than usual: not at all 9. Thoughts that you would be better off or of hurting yourself in some way: not at all Total score: 0 Depression Screening Interpretation: Negative Depression Screening Done: Yes 26410 - PHQ-9 Billing: Yes Source: Developed by Drs. David Ku, Cherelle King, Remington Louis and colleagues, with an educational chai from [employer]. Thrive Questionnaire Date Thrive assessed: 03/04/24 I am a: Patient What is your living situation today?: I have a steady place to live Within the past 12 months, did the food you bought not last and you didn't have the money to get more?: Never true Within the past 12 months, did you worry whether your food would run out before you got money to buy more?: Never true Do you have trouble paying for medicines?: No Do you have trouble getting transportation to medical appointments?: No Do you have trouble paying your heating and electricity bill?: No Do you have trouble taking care of your child, family member or friend?: No Do you have trouble with day-to-day activities such as bathing, preparing meals, shopping, managing finances, etc.?: No Are you currently unemployed and looking for a job?: No Are you interested in more education?: No Please select the resources that you would like help with: None Currently or been in a relationship where the following occur: no concerns reported THRIVE Score: 0 AUDIT C Alcohol Use Questionnaire (AUDIT-C) 1. How often do you have a drink containing alcohol?: Never 3. How often do you have six or more drinks on one occasion?: Never Total Score: 0 Score Reviewed/Action Taken: No VICKY-7 AMB Questionnaire VICKY-7 Date VICKY - 7 assessed: 03/04/24 Feeling nervous, anxious, or on edge: 0 = Not at all Not being able to stop or control worryin = Not at all Worrying too much about different things: 0 = Not at all Trouble relaxin = Not at all Being so restless that it is hard to sit still: 0 = Not at all Becoming easily annoyed or irritable: 0 = Not at all Feeling afraid as if something awful might happen: 0 = Not at all Total VICKY-7 score (0-4 normal; 5-9 mild; 10-14 moderate; 15-21 severe): 0 Source: Developed by Drs. David Ku, Cherelle King, Remington Louis and colleagues, with an educational chai from [employer]. VICKY-7 Assessment Billing VICKY-7 Assessment Tool: VICKY-7 Assessment 17876 Review of Systems Const Denies headache(s) Eyes Denies loss of vision ENT Denies vertigo, Denies dizziness, Denies headache(s) and Denies sore throat Card Denies chest pain, Denies leg edema and Denies lightheadedness Resp Denies cough, Denies hemoptysis and Denies wheezing GI Denies abdominal pain, Denies melena, Denies constipation, Denies diarrhea and Denies vomiting Denies dysuria, Denies urinary frequency and Denies urinary urgency Musc Denies arthralgias, Denies joint swelling, Denies numbness and Denies tingling Neuro Denies Abnormal speech present, Denies behavioral changes, Denies vertigo, Denies dizziness, Denies headache(s), Denies loss of vision, Denies memory loss, Denies numbness and Denies tingling Psych Denies anxiety, Denies behavioral changes, Denies depression, Denies memory loss and Denies panic attacks Miguel/Lymph Denies easy bleeding and Denies easy bruising Aller/Immun Denies wheezing Physical exam (Primary Care) Vital Signs: Last Vital Signs Pulse 101 H 03/04/24 10:01 BP 110/82 03/04/24 10:01 Pulse Ox 95 03/04/24 10:01 Oxygen Delivery Method Room Air 03/04/24 10:01 BMI result Body Mass Index 31.1 Tobacco/Smoking Status: Tobacco use Status Tobacco use date assessed 03/04/24 03/04/24 10:08 Patient Tobacco Use Status Never used Tobacco 03/04/24 10:08 e-Cigarette/Vaping Use Never Used 03/04/24 10:08 PHQ-9: PHQ-9 Score PHQ-9: Total score 0 03/04/24 10:10 Depression Screening Interpretation: Negative Thrive Assessment: Date of Thrive Assessment Date Thrive assessed 03/04/24 03/04/24 10:08 Currently or been in a relationship where the following occur: no concerns reported Const General: healthy appearing, no acute distress, alert and awake Nutritional Appearance: well nourished Orientation/consciousness: oriented to person, oriented to place and oriented to time HENMT Ears: TM's normal bilaterally General nose exam: Normal nasal mucous membranes and turbinates present Eyes Conjunctivae: conjunctivae normal Sclerae: sclerae normal Pupils: Equal, round and reactive pupils present Neck Neck: Yes no lymphadenopathy and Yes no JVD Thyroid: Thyroid normal Carotids: no bruits Resp Effort & Inspection: normal respiratory effort and not tachypneic Auscultation: no crackles, no rales, no rhonchi and no wheezes Cardio Rate: regular rate Rhythm: regular rhythm Heart sounds: no murmurs and normal S1 and S2 GI Palpation (GI): Soft to palpation, nontender, no hepatomegaly and no splenomegaly Auscultation: normal bowel sounds Skin General skin exam: no rashes or lesions noted and dry skin Neuro General: oriented to person, oriented to place and oriented to time Cranial nerves: Yes Equal, round and reactive pupils present Speech: No Abnormal speech present Gait exam (Neuro): Normal gait present Motor exam (neuro): no tremor noted Extrem Right upper extremity: full ROM Left upper extremity: full ROM Right lower extremity: full ROM; no edema Left lower extremity: full ROM; no edema Psych Mental Status: mental status grossly normal Speech and movement: Normal speech and movement present Affect: normal affect Attitude: cooperative Thought process: Normal thought process present Assessment and Plan Assessment & Plan (1) Generalized anxiety disorder: Code(s): F41.1 - Generalized anxiety disorder Plan: Patient reports her anxiety has been fairly well controlled though feels the Zoloft is not as effective as it once was. She is interested in additional medication to help her with her anxiety and depression. Will add on Wellbutrin 100 mg SR. He still speaks with a mental health therapist. Will follow-up with patient to evaluate the effectiveness of medication. (2) Transgender: Code(s): Z78.9 - Other specified health status Plan: Continues to follow [facility] endocrineology, is on testosterone therapy. Feels much more himself. (3) Screening for diabetes mellitus (DM): Code(s): Z13.1 - Encounter for screening for diabetes mellitus (4) Long-term current use of testosterone replacement therapy: Code(s): Z79.890 - Hormone replacement therapy Plan: As above Orders: Orders Comprehensive [place]. Panel Fast 03/04/24 Z13.1 - Encounter for screening for diabetes mellitus Complete Blood Count no Diff 03/04/24 Z79.890 - Hormone replacement therapy TSH reflex Free T4 03/04/24 R00.2 - Palpitations Medications: New bupropion HCl SR (Wellbutrin SR) 100 mg PO DAILY 90 tabs 1RF 90 days F41.1 - Generalized anxiety disorder lorazepam 1 mg PO DAILY PRN 21 tabs 0RF anxiety 21 days F41.1 - Generalized anxiety disorder Discontinued nitrofurantoin macrocrystal must administer with a meal/food Discontinued Reason: Change Referral Type 100 mg PO BID 7 days 14 caps 0RF R30.0 - Dysuria lorazepam Discontinued Reason: Doctor's Order 1 mg PO DAILY 21 days PRN 21 tabs 1RF anxiety F41.1 - Generalized anxiety disorder Coding Level of Care Code Est Pt Level 4 (39839) Diagnoses Generalized anxiety disorder F41.1 Transgender Z78.9 Screening for diabetes mellitus (DM) Z13.1 Long-term current use of testosterone replacement therapy Z79.890 Additional Codes VICKY-7 Assessment Billing - VICKY-7 Assessment Tool: VICKY-7 Assessment 68525 ([id number])
== END 2024-03-04 10:38 | disposition home or self-care (01) ==
PROVIDERS: PCP Physician Assistant; Visit Provider Physician Assistant
DX: F41.1 Generalized anxiety disorder (principal); Z78.9 Other specified health status; Z13.1 Encounter for screening for diabetes mellitus; Z79.890 Hormone replacement therapy
CPT/HCPCS: 99214

== ENCOUNTER 2024-03-19 14:07 | Outpatient (AMB) | payer OTHER, SELFPAY ==
--- NOTE | 2024-03-19 14:09 | MHC.OFFVIS ---
Vital Signs 03/19/24 14:10 Height 6 ft 3 in Weight 246 lb BMI 30.7 BP 90/70 Intake Visit Reasons: ? infection Intake Note: feeling burning sensation inside, pain in lower back and sides, feeling inflamed or swelling in vaginal area. Also would like full STD testing. LAst pap 06/20/18 was Negative. 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 Apprentice: Printing Press Operator Apprentice Present (Aidyn) Allergies Penicillins [PENICILLINS] Allergy (Unknown, Verified 03/19/24 14:13) HIVES AND SWELLING Sulfa (Sulfonamide Antibiotics) Allergy (Unknown, Verified 03/19/24 14:13) Anaphylaxis sulfamethoxazole [From BACTRIM] Allergy (Unknown, Verified 03/19/24 14:13) HALLUCINATIONS/HIVES trimethoprim [From BACTRIM] Allergy (Unknown, Verified 03/19/24 14:13) HALLUCINATIONS/HIVES Medication List - Last Reconciled 03/19/24 by Romina Lopez CNM bupropion HCl SR (Wellbutrin SR) 100 mg PO DAILY 90 days cyclobenzaprine 10 mg PO Q8H dicyclomine 20 mg PO QID PRN famotidine (Pepcid) 40 mg PO BID 30 days hydrocortisone 2.5% 1 appl topical TID PRN hydroxyzine HCl 25 mg PO BEDTIME PRN ibuprofen 600 mg PO Q8H PRN ketoconazole 2% 1 appl topical 3XW 30 days lorazepam 1 mg PO DAILY PRN 21 days meclizine 25 mg PO TID PRN needle (disp) 23 gauge (Hypodermic [place]) As directed needle (disp) 25 gauge (BD Regular Bevel [place]) As directed ondansetron 8 mg PO Q12H PRN 5 days sennosides (senna) 17.2 mg (2 x 8.6 mg) PO BEDTIME 30 days sertraline 100 mg PO DAILY 90 days simethicone 180 mg PO .TIDAC 30 days syringe (disposable) (BD Luer-Grace Syringe) As directed testosterone cypionate 50 mg subcut QWEEK HPI HPI ? infection: Details: Patient is a transgender female to male patient transitioning with use of testosterone that he it is prescribed to [facility]. Primary care provider is [facility] system he is planning to have top surgery soon. He is here because he is complaining of symptoms that seem to him like a urinary tract infection and vaginal infection he she has vaginal burning and some itching and also the other day it hurt she urinated the urine is yellow. She said the vp clinical at [facility] told her the testosterone change the urine. He she wants full STI testing. Patient is also complaining of pain both hips for a long time. Does not have increased urgency or frequency. [facility] Medical History Sinusitis Anxiety Surgical History History of D&C History of esophagogastroduodenoscopy (EGD) History of tonsillectomy History of wisdom tooth extraction (~09/2020) Family History (Updated 03/19/24 @ 14:14 by DESTIN Guallpa) Father In good health Mother Breast cancer Family/Other Stroke Brother No problems noted. Sister In good health Daughter In good health Maternal Grandmother Arthritis Other Family history non-contributory Social History Household Members: Family Housing: Apartment Alcohol intake: current Alcohol intake frequency: a few times a week Patient Tobacco Use Status: Never used Tobacco e-Cigarette/Vaping Use: Never Used Second Hand Smoke Exposure: No service: No Current occupational status: employed Sexual orientation: Lesbian/Morales/Homosexual Cognitive needs: No Hearing needs: No Vision needs: No Physical Exam Vital Signs: Last Vital Signs BP 90/70 03/19/24 14:10 BMI result Body Mass Index 30.7 Results AMB Urinalysis, Automated UA Leukoctes 3 Binta/uL Last Edit by DESTIN Guallpa on 03/19/24 14:32 UA Nitrite Negative Last Edit by DESTIN Guallpa on 03/19/24 14:32 UA Urobilinogen 0 mg/dL Last Edit by DESTIN Guallpa on 03/19/24 14:32 UA Protein 300 mg/dL Last Edit by DESTIN Guallpa on 03/19/24 14:32 UA pH 5.5 Last Edit by DESTIN Guallpa on 03/19/24 14:32 UA Blood 3 Ronnell/uL Last Edit by ChristinaDESTIN Ferrer on 03/19/24 14:32 UA Specific [place] 1.030 Last Edit by ChristinaDESTIN Ferrer on 03/19/24 14:32 UA Ketone Positive Last Edit by DESTIN Guallpa on 03/19/24 14:32 15 Adi Alaniz 03/19/24 14:32 UA Bilirubin 0 mg/dL Last Edit by DESTIN Guallpa on 03/19/24 14:32 UA Glucose 0 mg/dL Last Edit by DESTIN Guallpa on 03/19/24 14:32 Results Reviewed Results Reviewed: Laboratory Last Values Urine pH (Auto) 5.5 03/19/24 14:30 Specific [place] (Auto) 1.030 03/19/24 14:30 Urine Protein (Auto) 300 mg/dL 03/19/24 14:30 Glucose (UA)(Auto) 0 mg/dL 03/19/24 14:30 Urine Ketones (Auto) Positive 03/19/24 14:30 Urine Blood (Auto) 3 Ronnell/uL 03/19/24 14:30 Urine Nitrite (Auto) Negative 03/19/24 14:30 Urine Bilirubin (Auto) 0 mg/dL 03/19/24 14:30 Urine Urobilinogen (Auto) 0 mg/dL 03/19/24 14:30 Leukocyte Esterase (Auto) 3 Binta/uL 03/19/24 14:30 Assessment & Plan Assessment & Plan (1) Long-term current use of testosterone replacement therapy: Code(s): Z79.890 - Hormone replacement therapy Category: Medical (2) Presence of 52 mg levonorgestrel-releasing intrauterine device (IUD): Code(s): Z97.5 - Presence of (intrauterine) contraceptive device Category: Social Hx (3) Screen for sexually transmitted diseases: Code(s): Z11.3 - Encounter for screening for infections with a predominantly sexual mode of transmission Category: Medical (4) Vaginal burning: Code(s): N94.9 - Unspecified condition associated with female genital organs and menstrual cycle Category: Medical (5) Yeast infection of the vagina: Code(s): B37.31 - Acute candidiasis of vulva and vagina Category: Medical Plan -----Discussed in this visit the following: healthy balanced diet, regular and consistent exercise, getting recommended health screens, doing the best she can for her particular health concerns, kegel exercises, pap smear screening and followup recommendations, mammography screening and SBE, normal changes in cycles in her life stage--- . He is getting top surgery for removal of breasts in a couple months. I recommend he speak with the surgeon about breast cancer screening guidelines pertaining to this. Use overdue for a Pap so I did the Pap well and I did testing for gonorrhea chlamydia trichomoniasis Gardnerella and Barbra vulva and vagina are BV reddened consistent with yeast and the symptoms line up I am offering treatment with Monistat also Diflucan case it does not work. Additionally I did breast exam which was negative. He will be managed mostly by endocrinology and primary care. Additionally the IUDs in position and does not seem to be causing any problems. If he has continued issues with urination or any suspicion of a UTI he will follow-up with primary care and not hear. Two attempts to give a specimen yielded insufficient urine today. Teaching about yeast was also done. Also in addition the urine being bright yellow could be from B vitamins he is taking. In addition I checked in the orders and primary care had ordered a bunch of fasting labs but Silverio had not eaten anything today on purpose so is going to try to get all of the fasting labs done together with the STD check for HIV B hep C and syphilis. Orders: Orders AMB Urinalysis Automated Today R30.0 - Dysuria Hepatitis B Surface Antigen Today B37.31 - Acute candidiasis of vulva and vagina, N94.9 - Unspecified condition associated with female genital organs and menstrual cycle, Z11.3 - Encounter for screening for infections with a predominantly sexual mode of transmission, Z79.890 - Hormone replacement therapy, Z97.5 - Presence of (intrauterine) contraceptive device HIV Ab/Ag Today B37.31 - Acute candidiasis of vulva and vagina, N94.9 - Unspecified condition associated with female genital organs and menstrual cycle, Z11.3 - Encounter for screening for infections with a predominantly sexual mode of transmission, Z79.890 - Hormone replacement therapy, Z97.5 - Presence of (intrauterine) contraceptive device Hepatitis C Antibody Today B37.31 - Acute candidiasis of vulva and vagina, N94.9 - Unspecified condition associated with female genital organs and menstrual cycle, Z11.3 - Encounter for screening for infections with a predominantly sexual mode of transmission, Z79.890 - Hormone replacement therapy, Z97.5 - Presence of (intrauterine) contraceptive device Syphilis Screen Today B37.31 - Acute candidiasis of vulva and vagina, N94.9 - Unspecified condition associated with female genital organs and menstrual cycle, Z11.3 - Encounter for screening for infections with a predominantly sexual mode of transmission, Z79.890 - Hormone replacement therapy, Z97.5 - Presence of (intrauterine) contraceptive device Medications: New miconazole nitrate 2% (Miconazole-7) 1 appful vaginal BEDTIME 7 days 45 grams 1RF fluconazole may repeat second dose 72 hrs after first dose if symptoms persist 150 mg PO Q3D 2 doses 2 tabs 0RF Coding Level of Care Code Est Pt Prev Care 18-39y(16768) Diagnoses Long-term current use of testosterone replacement therapy Z79.890 Presence of 52 mg levonorgestrel-releasing intrauterine device (IUD) Z97.5 Screen for sexually transmitted diseases Z11.3 Vaginal burning N94.9 Yeast infection of the vagina B37.31
[2024-03-19 14:10] VITALS: BP 90/70; BMI 30.7
== END 2024-03-19 15:10 | disposition home or self-care (01) ==
PROVIDERS: PCP Physician Assistant; Visit Provider Advanced Practice Midwife
DX: Z01.419 Encounter for gynecological examination (general) (routine) without abnormal findings (principal); N94.9 Unspecified condition associated with female genital organs and menstrual cycle; B37.31 Acute candidiasis of vulva and vagina; Z97.5 Presence of (intrauterine) contraceptive device; Z79.890 Hormone replacement therapy
CPT/HCPCS: 99395

== ENCOUNTER 2024-03-19 14:07 | Outpatient (REF) | payer OTHER, SELFPAY ==
[2024-03-27 03:37] LABS: HPV mRNA E6/E7 rflx Not Detected (Not Detected)
== END 2024-03-19 14:08 | disposition home or self-care (01) ==
LOC: HO.LNP 14:07
PROVIDERS: PCP Physician Assistant; Visit Provider Advanced Practice Midwife
DX: Z12.4 Encounter for screening for malignant neoplasm of cervix (principal); Z11.51 Encounter for screening for human papillomavirus (HPV); Z11.3 Encounter for screening for infections with a predominantly sexual mode of transmission; N94.9 Unspecified condition associated with female genital organs and menstrual cycle; B37.31 Acute candidiasis of vulva and vagina; Z98.890 Other specified postprocedural states; Z97.5 Presence of (intrauterine) contraceptive device
CPT/HCPCS: 87624; 88142; 99395

== ENCOUNTER 2024-03-19 15:21 | Outpatient (REF) | payer OTHER, SELFPAY ==
[2024-03-20 03:37] LABS: CT PCR NOT DETECTED (Not Detect.); NG PCR NOT DETECTED (Not Detect.)
[2024-03-20 08:36] LABS: HBsAGNum1 0.25 S/CO (0.00-0.99); HIV AB/AG Nonreactive (Nonreactive); HIV Num 1 0.06 S/CO (0.00-0.99); Hepatitis B Surface Antigen Negative (Negative); ~HepC Num1 0.12 S/CO (0.00-0.79); ~Hepatitis C Antibody Nonreactive (Nonreactive)
[2024-03-20 08:37] LABS: Syphilis Screen Nonreactive (Nonreactive)
[2024-03-20 13:16] LABS: BV Int Neg Control Negative (Negative); BV Int Pos Control Positive (Positive)
== END 2024-03-19 15:22 | disposition home or self-care (01) ==
LOC: HO.HHCL 15:21
PROVIDERS: Visit Provider Advanced Practice Midwife
DX: B37.31 Acute candidiasis of vulva and vagina (principal); N94.9 Unspecified condition associated with female genital organs and menstrual cycle; Z79.890 Hormone replacement therapy; Z11.3 Encounter for screening for infections with a predominantly sexual mode of transmission; Z97.5 Presence of (intrauterine) contraceptive device
CPT/HCPCS: 0353U; 36415; 86780; 86803; 87340; 87389; 87480; 87510; 87660

== ENCOUNTER 2024-07-29 12:37 | Outpatient (AMB) | payer OTHER, SELFPAY ==
[2024-07-29 12:41] VITALS: BP 106/68; PULSE 76; O2SAT 98; BMI 30.4
--- NOTE | 2024-07-29 12:41 | A.OFFVIS_ITS ---
Vital Signs 07/29/24 12:41 Height 6 ft 3 in Weight 242 lb 15.19 oz BMI 30.4 BP 106/68 Blood Pressure Location Rt brachial Position Sitting Pulse 76 Pulse Source Pulse Oximeter Pulse Oximetry (%) 98 Oxygen Delivery Method Room Air Intake Visit Reasons: pt req appointment Intake Note: Silverio presents in office today for a requested visit. CC: Pt reports having some recurring GERD sx. Pt has been noticing a worsening of sx over the course of the last few weeks. Pt reports having epigastric pain and gas / abdominal distention due to their GERD. Pt is looking to see if we can provide medication refills for their sx. Pt reports that they have been taking OTC antacids more and more frequently as of late with no therapeutic response. Pt also reports having a new onset of vertigo within the last 2 weeks. Pt is not sure if the office can do anything to assist with that. Adult Basic Studies Teacher Required: No Allergies Penicillins [PENICILLINS] Allergy (Unknown, Verified 07/29/24 12:42) HIVES AND SWELLING Sulfa (Sulfonamide Antibiotics) Allergy (Unknown, Verified 07/29/24 12:42) Anaphylaxis sulfamethoxazole [From BACTRIM] Allergy (Unknown, Verified 07/29/24 12:42) HALLUCINATIONS/HIVES trimethoprim [From BACTRIM] Allergy (Unknown, Verified 07/29/24 12:42) HALLUCINATIONS/HIVES HPI HPI pt req appointment: Details: Assessment & Plan (1) GERD (gastroesophageal reflux disease): Code(s): K21.9 - Gastro-esophageal reflux disease without esophagitis Qualifiers: Esophagitis presence: without esophagitis Qualified Code(s): K21.9 - Gastro-esophageal reflux disease without esophagitis Plan: Pt has been lost to follow up since 2020 He is having a lot of GERD and HB/gas, with acidy foods and if he eats something spicy he will be on the toilet all day. But, he is usually constipated on the whole. He has a lot of bloating after eating. New meds, testosterone and zoloft and ativan prn. We will restart famotidine 40mg bid, simethicone, dicyclomine 20mg qid and meclinzine as a courtesy for vertigo. Also zofran prn nausea. No other new problems. Return office visit in 6 weeks to evaluate his response. (2) Abdominal bloating: Code(s): R14.0 - Abdominal distension (gaseous) (3) Constipation: Code(s): K59.00 - Constipation, unspecified (4) Irritable bowel syndrome with both constipation and diarrhea: Code(s): K58.2 - Mixed irritable bowel syndrome Medications: New sennosides (senna) 17.2 mg (2 x 8.6 mg) PO BEDTIME 60 caps 6RF constipation 30 days Refilled famotidine (Pepcid) 40 mg PO BID 60 tabs 6RF 30 days K21.9 - Gastro-esophageal reflux disease without esophagitis simethicone 180 mg PO .TIDAC 90 caps 6RF 30 days R14.0 - Abdominal distension (gaseous) dicyclomine 20 mg PO QID PRN 90 tabs 3RF abdominal pain K58.2 - Mixed irritable bowel syndrome ondansetron 8 mg PO Q12H PRN 10 tabs 6RF nausea and vomiting 5 days K21.9 - Gastro-esophageal reflux disease without esophagitis meclizine 25 mg PO TID PRN 90 tabs 6RF dizziness CORRESPONDENCE On 04/08/24 @ 13:51 Adore De La Rosa Wrote To Sunshine Benton I have a 2pm on May 01. Does this work for you? On 04/08/24 @ 13:49 Sunshine Benton (Jay) (Regarding Self / Same As Patient) Wrote To Anna Perez If you can please make the appointment for the afternoon that would be great. Any day is fine as long as the appointment is after 1pm thank you Silverio Benton On 04/08/24 @ 13:43 Adore De La Rosa Wrote To Sunshine Benton Fredis Sawyer At your last appointment in February of 2023 it was suggested that you return in six weeks to evaluate the response of the medications prescribed by February and your symptoms. However, it looks like you did not follow up so we are needing to schedule a follow up. Is there a date and time you prefer? TODAY'S VISIT Patient has been lost to follow-up since 02/2023 From last note We will restart famotidine 40mg bid, simethicone, dicyclomine 20mg qid and meclinzine as a courtesy for vertigo. Also zofran prn nausea. He has run out of his famotidine twice a day and has been having more frequent heartburn. He has been trying to take Tums but ends up popping them like candy and they are not terribly effective. With this he is also having a feeling like bubbles in the chest and because he does not have the dicyclomine there is quite a bit of upset stomach can cramping. All of this combined tends to contribute to nausea. We are going to refill the medications all except for the meclizine and hopefully this will take care of the problem. He will be having surgery 09/12 so this may complicate CIC and he can call me if needed. Because of his upcoming surgery I will leave it up to him to call me if this does not solve the problem and will work on this hopefully prior to the surgery otherwise will see him in 6 months. ROV 6 mos. [facility] Medical History (Updated 08/13/24 @ 11:15 by TWILA Ngo) Dysuria Yeast infection of the vagina Cervical cancer screening Otitis externa Hamstring tendinitis Encounter for IUD insertion Breast skin changes Herpes simplex Cough Pharyngitis Family history of breast cancer in mother Tinea pedis Screen for sexually transmitted diseases Screening for diabetes mellitus (DM) Vaginal burning Sinusitis Anxiety Surgical History History of D&C History of esophagogastroduodenoscopy (EGD) History of tonsillectomy History of wisdom tooth extraction (~09/2020) Family History Father In good health Mother Breast cancer Family/Other Stroke Brother No problems noted. Sister In good health Daughter In good health Maternal Grandmother Arthritis Other Family history non-contributory Social History Household Members: Family Housing: Apartment Alcohol intake: current Alcohol intake frequency: a few times a week Patient Tobacco Use Status: Never used Tobacco e-Cigarette/Vaping Use: Never Used Second Hand Smoke Exposure: No service: No Current occupational status: employed Sexual orientation: Lesbian/Morales/Homosexual Cognitive needs: No Hearing needs: No Vision needs: No Female Reproductive History Menstrual Age of Menarche: 12 Review of Systems Const Denies fatigue, Denies fever(s), Denies night sweats, Denies poor appetite and Denies weight loss ENT Reports Normal hearing present, Denies dental pain, Denies dysphagia, Reports dry mouth, Denies hearing loss, Denies mouth pain, Denies odynophagia, Denies throat swelling, Denies tongue swelling and Reports other (Dentition adequate) Card Reports no additional complaints Resp Reports no additional complaints GI Details: Denies abdominal pain, Denies melena, Denies bloating, Denies hematochezia, Reports constipation, Denies GI cramping, Denies dysphagia, Denies excessive flatus, Denies early satiety, Reports heartburn, Denies diarrhea, Reports nausea, Denies odynophagia, Denies vomiting and Denies hematemesis Skin/Breast Denies pruritus, Denies lesions, Denies rash and Denies jaundice Neuro Reports Normal hearing present and Denies Abnormal speech present Endo Denies fatigue Aller/Immun Denies throat swelling and Denies tongue swelling Physical Exam Vital Signs: Last Vital Signs Pulse 76 07/29/24 12:41 BP 106/68 07/29/24 12:41 Pulse Ox 98 07/29/24 12:41 Oxygen Delivery Method Room Air 07/29/24 12:41 BMI result Body Mass Index 30.4 Const General: cooperative, no acute distress, well developed and well groomed Nutritional Appearance: well nourished and obese Orientation/consciousness: oriented to person, oriented to place and oriented to time Limitations: No language barrier HEENT Head: Yes normocephalic and Yes atraumatic Eyes General: appearance normal, both eyes and all related structures Pupils: Equal, round and reactive pupils present Neck Neck: Yes normal visual inspection and Yes no lymphadenopathy Thyroid: Thyroid normal Resp Effort & Inspection: normal respiratory effort and able to speak in complete sentences Auscultation: clear to auscultation bilaterally Cardio Rate: regular rate Rhythm: regular rhythm Heart sounds: Normal, physiologic split S2 sound present Peripheral pulses: radial pulses present and posterior tibial pulses present GI Inspection: No distended, No Abdominal panniculus present and Yes obesity Palpation (GI): Soft to palpation, nontender, no guarding, not rigid and No hepatosplenomegaly present Percussion: Yes normal to percussion Auscultation: normal bowel sounds Rectal Exam - Female: deferred Skin General skin exam: no rashes or lesions noted, turgor normal, skin not dry, no jaundice, No spider nevi and no striae Rashes: no rashes Nails: normal Neuro General: oriented to person, oriented to place and oriented to time Cranial nerves: Yes Equal, round and reactive pupils present and Yes Normal hearing present Speech: No Abnormal speech present Extrem General: Yes normal to inspection, No clubbing, No cyanosis and No edema Psych Appearance: grossly normal and well kempt Mental Status: mental status grossly normal Speech and movement: Normal speech and movement present Affect: normal affect Attitude: cooperative Thought process: Normal thought process present and not confabulating Thought content: Normal thought content present Insight: Limited insight present (Psych) Judgement: Limited judgement present (Psych) Assessment & Plan Assessment & Plan (1) Irritable bowel syndrome with both constipation and diarrhea: Code(s): K58.2 - Mixed irritable bowel syndrome Category: Medical (2) Constipation: Code(s): K59.00 - Constipation, unspecified Category: Medical (3) GERD (gastroesophageal reflux disease): Code(s): K21.9 - Gastro-esophageal reflux disease without esophagitis Category: Medical Qualifiers: Esophagitis presence: without esophagitis Qualified Code(s): K21.9 - Gastro-esophageal reflux disease without esophagitis (4) Nausea and vomiting: Code(s): R11.2 - Nausea with vomiting, unspecified Category: Medical Plan Patient has been lost to follow-up since 02/2023 From last note We will restart famotidine 40mg bid, simethicone, dicyclomine 20mg qid and meclinzine as a courtesy for vertigo. Also zofran prn nausea. He has run out of his famotidine twice a day and has been having more frequent heartburn. He has been trying to take Tums but ends up popping them like candy and they are not terribly effective. With this he is also having a feeling like bubbles in the chest and because he does not have the dicyclomine there is quite a bit of upset stomach can cramping. All of this combined tends to contribute to nausea. We are going to refill the medications all except for the meclizine and hopefully this will take care of the problem. He will be having surgery 09/12 so this may complicate CIC and he can call me if needed. Because of his upcoming surgery I will leave it up to him to call me if this does not solve the problem and will work on this hopefully prior to the surgery otherwise will see him in 6 months. ROV 6 mos. Medications: New ondansetron 4 mg PO Q8H PRN 30 tabs 3RF nausea and vomiting ondansetron 4 mg PO Q8H PRN 30 tabs 3RF nausea and vomiting Refilled dicyclomine 20 mg PO QID PRN 90 tabs 3RF abdominal pain K58.2 - Mixed irritable bowel syndrome famotidine No further refills until patient is seen in office. 40 mg PO BID 60 tabs 6RF K21.9 - Gastro-esophageal reflux disease without esophagitis simethicone 180 mg PO .TIDAC 90 caps 6RF 30 days R14.0 - Abdominal distension (gaseous) On Hold sennosides (senna) Hold Comment: Doctor's Order 17.2 mg (2 x 8.6 mg) PO BEDTIME 30 days 60 caps 6RF constipation Coding Level of Care Code Est Pt Level 3 (72639) Diagnoses Irritable bowel syndrome with both constipation and diarrhea K58.2 Constipation K59.00 Gastroesophageal reflux disease without esophagitis K21.9 Esophagitis presence: without esophagitis Nausea and vomiting R11.2
== END 2024-07-29 13:17 | disposition home or self-care (01) ==
PROVIDERS: PCP Physician Assistant; Visit Provider Nurse Practitioner
DX: K58.2 Mixed irritable bowel syndrome (principal); K59.00 Constipation, unspecified; K21.9 Gastro-esophageal reflux disease without esophagitis; R11.2 Nausea with vomiting, unspecified
CPT/HCPCS: 99213

== ENCOUNTER → 2024-07-29 12:37 | Outpatient (BNVA) | payer OTHER, SELFPAY | PROVIDERS: PCP Physician Assistant; Visit Provider Nurse Practitioner | DX: K21.9 Gastro-esophageal reflux disease without esophagitis (principal); K59.00 Constipation, unspecified; K58.2 Mixed irritable bowel syndrome; R11.2 Nausea with vomiting, unspecified | CPT/HCPCS: 99212 ==

== ENCOUNTER 2024-12-25 14:30 | Outpatient (REF) | payer OTHER, SELFPAY ==
--- OUTSIDE RECORDS SUMMARY | 2024-12-25 16:17 | XMS_ITS | Encounter Summary ---
Author Organization [employer] [facility] Address [address] [place] [address] Care Team Providers Care Motor Pool Clerk Name Role Phone Unavailable Primary Care Provider Unavailabl e Encounter Details Date Type Department Care Team (Latest Contact Info) Description 01/24/2021 Abstract HHC CONVERSIONS Dental, Provider, DDS Social History Tobacco Use Types Packs/Day Years Used Date Smoking Tobacco: Never Assessed Comments Unknown Sex and Gender Information Value Date Recorded Sex Assigned at Female 09/18/2022 10:37 AM EDT Legal Sex Female 10:37 AM EDT Gender Identity Female 09/18/2022 10:37 AM EDT Sexual Orientation Choose not to disclose 2021 10:37 AM EDT documented as of this encounter Plan of Treatment Not on file documented as of this encounter Visit Diagnoses Not on filedocumented in this encounter
--- OUTSIDE RECORDS SUMMARY | 2024-12-25 16:17 | XMS_ITS | Clinical Summary ---
Author Organization [employer] Address [address] [place] [address] Care Team Providers Care Templer Head Name Role Phone Unavailable Primary Care Provider Unavailabl e Social History Tobacco Use Types Packs/Day Years Used Date Smoking Tobacco: Never Assessed Comments Unknown Sex and Gender Information Value Date Recorded Sex Assigned at Female 09/18/2022 10:37 AM EDT Legal Sex Female 10:37 AM EDT Gender Identity Female 09/18/2022 10:37 AM EDT Sexual Orientation Choose not to disclose 2021 10:37 AM EDT Plan of Treatment Health Maintenance Due Date Last Done Comments Depression Screening 1990 Alcohol/Substance Use Screening 2002 Tobacco Screening 2002 Family Planning (PISQ) 2005 DTaP/Tdap/Td Vaccines (1 - Tdap) 2009 Hepatitis B Vaccines (1 of 3 - 19+ 3-dose series) 2009 Pap Smear 2011 Cervical Cancer Screening 2020 HPV/Cotest 2020 COVID-19 Vaccine (3 - 2023-2 5 season) 2024 01/10/2022, 12/16/2021 Influenza Vaccine (#1) 2024 Zoster Vaccines (1 of 2) 2040 RSV Patients and Patients Aged 60 years or older (1 - 1-dose 75+ series) 2065 HIB Vaccines Aged Out No longer eligi ble based on patient's age to complete this topic HPV Vaccines Aged Out No longer eligi ble based on patient's age to complete this topic Hepatitis A Vaccines Aged Out No long er eligible based on patient's age to complete this topic IPV Vaccines Aged Out No longer eligi ble based on patient's age to complete this topic Meningococcal Vaccine Aged Out No trey itzel eligible based on patient's age to complete this topic Pneumococcal Vaccine: Pediatrics (0 to 5 Years) and At-Risk Patients (6 to 49) Years) Aged Out No longer eligible b ased on patient's age to complete this topic RSV under 20 months Aged Out No longe r eligible based on patient's age to complete this topic Rotavirus Vaccines Aged Out No longer eligible based on patient's age to complete this topic
[2024-12-25 16:36] LABS: Hematocrit 40.9 % (37.0-47.0); Hemoglobin 12.7 g/dl (12.0-16.0); Mean Corpuscular HGB Conc 31.1 g/dl (31.0-35.0); Mean Corpuscular Volume 77.2 fL (80.0-98.0); Mean Platelet Volume 9.9 fL (9.4-12.3); Platelet Count 364 X10*3/uL (160-400); Red Cell Distribution Width 16.6 % (11.0-16.0); White Blood Count 7.7 X10*3/uL (4.8-10.8)
[2024-12-25 16:59] LABS: Alanine Aminotransferase 32 U/L (0-31); Albumin Level 4.7 g/dL (3.5-5.0); Alkaline Phosphatase 73 U/L (39-117); Anion Gap 11 (12-20); Aspartate Amino Transferase 27 U/L (5-31); Bilirubin Total 0.4 mg/dL (0.0-1.0); Blood Urea Nitrogen 7 mg/dL (9-16); Calcium 9.6 mg/dL (8.4-10.2); Carbon Dioxide 26 mmol/L (22-29); Chloride 103 mmol/L (96-108); Estimated Glomerular Filt Rate > 60; Glucose Fasting 88 mg/dL (60-99); Potassium 3.9 mmol/L (3.3-5.1); Sodium 136 mmol/L (135-145); Total Protein 8.5 g/dL (6.5-8.0)
[2024-12-31 14:38] LABS: Testosterone, Free 137.3 pg/mL (0.1-6.4); Testosterone, Total 789 ng/dL (2-45)
== END 2024-12-25 14:31 | disposition home or self-care (01) ==
LOC: HO.LAB 14:30
PROVIDERS: PCP Physician Assistant; Visit Provider Physician Assistant
DX: Z00.00 Encounter for general adult medical examination without abnormal findings (principal); Z13.1 Encounter for screening for diabetes mellitus; H81.13 Benign paroxysmal vertigo, bilateral; F41.1 Generalized anxiety disorder; Z78.9 Other specified health status
CPT/HCPCS: 36415; 80053; 84402; 84403; 85027; 90471; 96127; 99395

== ENCOUNTER 2025-07-03 16:11 | Outpatient (AMB) | payer OTHER, MEDICAID, SELFPAY ==
--- OUTSIDE RECORDS SUMMARY | 2025-07-03 16:13 | XMS_ITS | Clinical Summary ---
Author Organization [facility] Address [address] [place] [address] Care Team Providers Care Office Nurse Name Role Phone Unavailable Primary Care Provider Unavailabl e Social History Tobacco Use Types Packs/Day Years Used Date Smoking Tobacco: Never Assessed Comments Unknown Sex and Gender Information Value Date Recorded Sex Assigned at Female 09/10/2024 6:10 PM EDT Legal Sex Female 6:11 PM EDT Gender Identity Male 09/10/2024 6:10 PM EDT Sexual Orientation Not on file Plan of Treatment Health Maintenance Due Date Last Done Comments DTaP,Tdap,and Td Vaccines (1 - Tdap) 2009 Hepatitis B Vaccines (1 of 3 - 19+ 3-dose series) 2009 Cervical Cancer Screening: P ap Smear 2011 HIV Screening 10/22/2022 Hepatitis C Screening 10/22/2022 Social Influencers of Health Screening 10/22/2022 COVID-19 Vaccine ( - 2023-2 5 season) 2024 Depression Screening 11/19/2024 Influenza Vaccine (#1) 2025 HIB Vaccines Aged Out No longer eligi [...] on patient's age to complete this topic MMR Vaccines Aged Out No longer eligi ble based on patient's age to complete this topic Meningococcal ACWY Vaccine Aged Out N o longer eligible based on patient's age to complete this topic Meningococcal B Vaccine Aged Out No l onger eligible based on patient's age to complete this topic Pneumococcal Vaccine: Pediat rics (0 to 5 Years) and At-Risk Patients (6 to 49 Years) Aged Out No longer eligible b ased on patient's age to complete this topic RSV Immunization Patients Un lita 20 months Aged Out No longer eligible b ased on patient's age to complete this topic Varicella Vaccines Aged Out No longer eligible based on patient's age to complete this topic
--- OUTSIDE RECORDS SUMMARY | 2025-07-03 16:13 | XMS_ITS | Clinical Summary ---
Author Organization [employer] Address [address] [place] [address] Care Team Providers Care Photographic Technician Name Role Phone Unavailable Primary Care Provider [...] Date Last Done Comments Depression Screening 1990 Disability Screening 1990 Alcohol/Substance Use Screening 2002 Tobacco Screening 2002 Family Planning (PISQ) 2005 HPV Vaccines (1 - 3-dose series) 2005 DTaP/Tdap/Td Vaccines (1 - Tdap) 2009 Hepatitis B Vaccines (1 of 3 - 19+ 3-dose series) 2009 Pap Smear 2011 Cervical Cancer Screening 2020 HPV/Cotest 2020 COVID-19 Vaccine (3 - 2023-2 5 season) 2024 01/10/2022, 12/16/2021 Influenza Vaccine (#1) 2025 Zoster Vaccines (1 of 2) 2040 RSV [...] Years) and At-Risk Patients (6 to 49) Years Aged Out No longer eligible b ased on patient's age to complete this topic RSV under 20 months Aged Out No longe r eligible based on patient's age to complete this topic Rotavirus Vaccines Aged Out No longer eligible based on patient's age to complete this topic
--- OUTSIDE RECORDS SUMMARY | 2025-07-03 16:13 | XMS_ITS | Clinical Summary ---
Author Organization [facility] Address [address] [place], [place] [id number] Phone Care Team Providers Care Information Services Vice President Name Role Phone Rodolfo Chirinos Primary Care Provider + Allergies Active Allergy Reactions Criticality Noted Date Comments Sulfamethoxazole-Trimeth oprim Other (See Comments) 10/31/2024 Cardiac arrest Penicillins Hives,Throat Tightness Medium 10/31/2024 Medications buPROPion (WELLBUTRIN SR) 100 MG SR 12 hr tablet Take 1 tablet by mouth every morning. 4 Active sertraline (ZOLOFT) 100 MG tablet Take 1 tablet by mouth every morning. 4 Active simethicone (MYLICON,GAS-X ) 180 mg capsule TAKE 1 CAPSULE BY MOUTH THREE TIMES DAILY BEFORE MEALS 4 Active BD LUER-COLBY SYRINGE 1 mL Syrg DIRECTED 90 DAYS 4 Active testosterone cypionate (DEPO-TESTOTER ONE) 200 mg/mL injection INJECT 0.4ML SUBCUTANEOUSLY WEEKLY FOR 90 DAYS 4 Active Social History Tobacco Use Types Packs/Day Years Used Date Smoking Tobacco: Never Smokeless Tobacco: Never Tobacco Cessation:Counseling Given: Not Answered Alcohol Use Standard Drinks/Week Comments Never 0 (1 standard drink = 0.6 oz pur e alcohol) Education Answer Date Recorded Are you interested in more education? Not on stan e 09/30/2024 Are you concerned about learning? Not on file 09/30/2024 No 09/30/2024 No 09/30/2024 Digital Access Answer Date Recorded No 09/30/2024 No 09/30/2024 Reliable internet access at home? Not on file 09/30/2024 Device with a working camera? Not on file Sex and Gender Information Value Date Recorded Sex Assigned at Not on file Legal Sex Male 10:02 AM EST Gender Identity Male 09/30/2024 10:04 AM EST Sexual Orientation Not on file Last Filed Vital Signs Vital Sign Reading Time Taken Comments Blood Pressure 123/78 10/31/2024 4:20 PM EST Pulse 77 10/31/2024 4:20 PM EST Temperature 36.7 C (98 F) 10/31/2024 4:20 PM EST Respiratory Rate 18 10/31/2024 4:20 PM EST Oxygen Saturation 97% 10/31/2024 4:20 PM EST Inhaled Oxygen Concentration - - Weight 106.6 kg (235 lb) 10/31/2024 4:20 PM EST Height 190.5 cm (6' 3 ) 10/31/2024 4:20 PM EST Body Mass Index 29.37 10/31/2024 4:20 PM EST Plan of Treatment Health Maintenance Due Date Last Done Comments Adult Td,Tdap Booster 1990 LIPID PANEL 1990 DEPRESSION SCREENING 2002 HEPATITIS C SCREENING 2008 HIV ONE-TIME SCREENING (18-6 5 YEARS) 2008 COVID-19 VACCINE (2023-2 5 season) 2024 SCREENING FOR DIABETES 2025 SMOKING STATUS SCREENING (On ce After 26 Yrs) Completed 09/30/2024 HEPATITIS A VACCINES Aged Out No long er eligible based on patient's age to complete this topic HIB VACCINES Aged Out No longer eligi ble based on patient's age to complete this topic MENINGOCOCCAL VACCINES (ACWY) Aged Out No longer eligible based on patient's age to complete this topic MENINGOCOCCAL VACCINES (B) Aged Out N o longer eligible based on patient's age to complete this topic PNEUMOCOCCAL VACCINES (0-49 years) Aged Out No longer eligible based on patient's age to complete this topic Medical Devices Not on file Insurance [facility] ACO ACO ACO ACO ACO Care Teams Information Services Vice President Relationship Specialty Start Date End Date Rodolfo Chirinos PA [address] [place] [id number] PCP - General Physician Broadcast Transmitter Operator 09/30/24 Additional Source Comments The information contained in this document represents components of the legal health record. It is not the complete legal health record.[facility]
--- NOTE | 2025-07-03 16:15 | A.OFFVIS_ITS ---
Vital Signs 07/03/25 16:22 Height 6 ft 3 in Weight 227 lb BMI 28.4 BP 117/70 Blood Pressure Location Lt brachial Position Sitting Pulse 100 Intake Visit Reasons: Abdominal pain, med f/u r/s 04/01/25 r/s 06/03/25 Intake Note: Patient in office today in follow up of abdominal pain. CC: Patient c/o gas, feeling heavy on the chest, some days feeling like is heavy to breath, stomach pain, and lower abd pain. Patient is concerned about liver and stomach and would like to get tested for cancer. Reports constipation alternating with diarrhea for the past week and feeling like throwing up. Allergies Penicillins (PENICILLINS) Allergy (Unknown, Verified 07/03/25 16:27) HIVES AND SWELLING Sulfa (Sulfonamide Antibiotics) Allergy (Unknown, Verified 07/03/25 16:27) Anaphylaxis sulfamethoxazole (From BACTRIM) Allergy (Unknown, Verified 07/03/25 16:27) HALLUCINATIONS/HIVES trimethoprim (From BACTRIM) Allergy (Unknown, Verified 07/03/25 16:27) HALLUCINATIONS/HIVES HPI HPI Abdominal pain, med f/u r/s 04/01/25 r/s 06/03/25: Details: Assessment & Plan (1) Irritable bowel syndrome with both constipation and diarrhea: Code(s): K58.2 - Mixed irritable bowel syndrome Category: Medical (2) Constipation: Code(s): K59.00 - Constipation, unspecified Category: Medical (3) GERD (gastroesophageal reflux disease): Code(s): K21.9 - Gastro-esophageal reflux disease without esophagitis Category: Medical Qualifiers: Esophagitis presence: without esophagitis Qualified Code(s): K21.9 - Gastro-esophageal reflux disease without esophagitis (4) Nausea and vomiting: Code(s): R11.2 - Nausea with vomiting, unspecified Category: Medical Plan Patient has been lost to follow-up since 02/2023 From last note We will restart famotidine 40mg bid, simethicone, dicyclomine 20 mg qid and meclinzine as a courtesy for vertigo. Also zofran prn nausea. He has run out of his famotidine twice a day and has been having more frequent heartburn. He has been trying to take Tums but ends up popping them like candy and they are not terribly effective. With this he is also having a feeling like bubbles in the chest and because he does not have the dicyclomine there is quite a bit of upset stomach can cramping. All of this combined tends to contribute to nausea. We are going to refill the medications all except for the meclizine and hopefully this will take care of the problem. He will be having surgery 09/12 so this may complicate CIC and he can call me if needed. Because of his upcoming surgery I will leave it up to him to call me if this does not solve the problem and will work on this hopefully prior to the surgery otherwise will see him in 6 months. ROV 6 mos. Medications: New ondansetron 4 mg PO Q8H PRN 30 tabs 3RF nausea and vomiting ondansetron 4 mg PO Q8H PRN 30 tabs 3RF nausea and vomiting Refilled dicyclomine 20 mg PO QID PRN 90 tabs 3RF abdominal pain K58.2 - Mixed irritable bowel syndrome famotidine No further refills until patient is seen in office. 40 mg PO BID 60 tabs 6RF K21.9 - Gastro-esophageal reflux disease without esophagitis simethicone 180 mg PO .TIDAC 90 caps 6RF 30 days R14.0 - Abdominal distension (gaseous) On Hold sennosides (senna) Hold Comment: Doctor's Order 17.2 mg (2 x 8.6 mg) PO BEDTIME 30 days 60 caps 6RF constipation TODAY'S VISIT His last medication list for GI regimen was dicyclomine, famotidine, simethicone, and Zofran. [facility] Medical History (Updated 07/03/25 @ 17:24 by TWILA Ngo) Screening for diabetes mellitus (DM) Dysuria Yeast infection of the vagina Cervical cancer screening Otitis externa Hamstring tendinitis Encounter for IUD insertion Breast skin changes Herpes simplex Cough Pharyngitis Family history of breast cancer in mother Tinea pedis Screen for sexually transmitted diseases Vaginal burning Sinusitis Anxiety Surgical History History of D&C History of esophagogastroduodenoscopy (EGD) History of tonsillectomy History of wisdom tooth extraction (~09/2020) Family History (Updated 07/03/25 @ 16:22 by Izabel Medrano [facility]) Father In good health Mother Breast cancer, Onset Age: 55 Liver cancer Family/Other Stroke Brother No problems noted. Sister In good health Daughter In good health Maternal Grandmother Arthritis Liver cancer Other Family history non-contributory Social History (Updated 12/25/24 @ 14:54 by Rodolfo Chirinos PA-C) Household Members: Family Housing: Apartment Alcohol intake: current Alcohol intake frequency: holidays/special occasions only Patient Tobacco Use Status: Never used Tobacco e-Cigarette/Vaping Use: Never Used Second Hand Smoke Exposure: No service: No Current occupational status: unemployed Sexual orientation: Lesbian/Morales/Homosexual Cognitive needs: No Hearing needs: No Vision needs: No Female Reproductive History Menstrual Age of Menarche: 12 Review of Systems Const Denies fatigue, Denies fever(s), Denies night sweats, Reports poor appetite and Reports weight loss ENT Reports Normal hearing present, Denies dental pain, Reports dysphagia, Denies hearing loss, Denies mouth pain, Reports odynophagia, Denies throat swelling, Denies tongue swelling and Reports other (Dentition adequate) Card Reports chest pain Resp Reports no additional complaints GI Details: Reports abdominal pain, Denies melena, Denies bloating, Denies hematochezia, Denies constipation, Reports GI cramping, Reports dysphagia, Denies excessive flatus, Denies early satiety, Reports heartburn, Denies diarrhea, Denies nausea, Reports odynophagia, Denies vomiting and Denies hematemesis Reports dysuria Musc Reports myalgias Skin/Breast Denies pruritus, Denies lesions, Denies rash and Denies jaundice Neuro Reports Normal hearing present and Denies Abnormal speech present Endo Denies fatigue Aller/Immun Denies throat swelling and Denies tongue swelling Physical Exam Vital Signs: Last Vital Signs Pulse 100 07/03/25 16:22 BP 117/70 07/03/25 16:22 BMI result Body Mass Index 28.4 Const General: cooperative, no acute distress, well developed and well groomed Nutritional Appearance: average body habitus and well nourished Orientation/consciousness: oriented to person, oriented to place and oriented to time Limitations: No language barrier HEENT Head: Yes normocephalic and Yes atraumatic Eyes General: appearance normal, both eyes and all related structures Pupils: Equal, round and reactive pupils present Neck Neck: Yes normal visual inspection and Yes no lymphadenopathy Thyroid: Thyroid normal Resp Effort & Inspection: normal respiratory effort and able to speak in complete sentences Auscultation: clear to auscultation bilaterally Cardio Rate: regular rate Rhythm: regular rhythm Heart sounds: Normal, physiologic split S2 sound present Peripheral pulses: radial pulses present and posterior tibial pulses present GI Inspection: No distended and No Abdominal panniculus present Palpation (GI): Soft to palpation, Tenderness to palpation present (GI) (Generalized), no guarding, not rigid and No hepatosplenomegaly present Percussion: Yes normal to percussion Auscultation: normal bowel sounds Rectal Exam - Female: deferred Skin General skin exam: no rashes or lesions noted, turgor normal, skin not dry, no jaundice, No spider nevi and no striae Rashes: no rashes Nails: normal Neuro General: oriented to person, oriented to place and oriented to time Cranial nerves: Yes Equal, round and reactive pupils present and Yes Normal hearing present Speech: No Abnormal speech present Extrem General: Yes normal to inspection, No clubbing, No cyanosis and No edema Psych Appearance: grossly normal and well kempt Mental Status: mental status grossly normal Speech and movement: Normal speech and movement present Affect: normal affect Attitude: cooperative Thought process: Normal thought process present and not confabulating Thought content: Normal thought content present Insight: Fair insight present (Psych) Judgement: Fair judgement present (Psych) Assessment & Plan Assessment & Plan (1) GERD (gastroesophageal reflux disease): Code(s): K21.9 - Gastro-esophageal reflux disease without esophagitis Category: Medical Qualifiers: Esophagitis presence: without esophagitis Qualified Code(s): K21.9 - Gastro-esophageal reflux disease without esophagitis (2) Constipation: Code(s): K59.00 - Constipation, unspecified Category: Medical (3) Irritable bowel syndrome with both constipation and diarrhea: Code(s): K58.2 - Mixed irritable bowel syndrome Category: Medical (4) Nausea and vomiting: Code(s): R11.2 - Nausea with vomiting, unspecified Category: Medical (5) Odynophagia: Code(s): R13.10 - Dysphagia, unspecified Category: Medical (6) Unexplained weight loss: Code(s): R63.4 - Abnormal weight loss Category: Medical (7) Family history of cardiac arrest: Code(s): Z82.49 - Family history of ischemic heart disease and other diseases of the circulatory system Category: Medical (8) Frequent UTI: Code(s): N39.0 - Urinary tract infection, site not specified Category: Medical Plan Her current GI regimen consists of ondansetron, dicyclomine, famotidine, and simethicone. We had discontinued her senna. History of Present Illness - The patient is a 35 year old female presenting with gastrointestinal symptoms and concerns about unexplained weight loss. - She describes significant bloating and episodes of nocturnal vomiting associated with a choking sensation. - Reports significant weight loss over time without a clear explanation. - Experiences a burning stomach sensation, back and leg pain, and constipation alternating with diarrhea. - Expresses concern about her family history of liver cancer. - Recurrent episodes of chest heaviness and discomfort, possibly related to gastroesophageal reflux. - Has a history of frequent UTIs and is worried about any urgent or acute infections. - There is concern about cardiac health, given a past cardiac arrest and ongoing chest pain, potentially related to GERD. - Family history includes early-onset liver and breast cancer. Nutrition The conversation did not provide specific details regarding the patient's overall dietary intake, specific food allergies, or current diet, though there is mention of significant weight loss over time. Specific medications taken include pantoprazole, simethicone, and dicyclomine, and previous use of carbamic sucrophate and famotidine which have been altered due to medication interactions and insufficient symptom relief. Review of Systems - Gastrointestinal: Reports bloating, vomiting, constipation, abdominal discomfort, burning stomach sensation, and weight loss. - Cardiovascular: Reports chest heaviness and discomfort. - Genitourinary: Reports frequent urinary tract infections. - Musculoskeletal: Reports right side back pain and leg pain. Patient was informed and verbally consented to the use of an ambient scribe for clinic note documentation during this visit. Discussion Notes During our discussion, I explained to the patient the likely association between her medication adjustments and gastrointestinal symptoms, such as constipation and GERD. I recommended discontinuing certain medications and replacing them with others that have previously shown better results. We discussed the rationale behind conducting comprehensive tests and examinations, such as a thyroid panel, cholesterol panel, ultrasonography, and endoscopy, to address her weight loss concerns and family history of liver cancer. I emphasized the importance of following our plan for urological evaluation and encouraged considering genetic counseling given her family health history. We talked about the general process and timelines for scheduled procedures and the known risks and benefits of the proposed interventions. Additionally, I stressed the need for lifestyle modifications, particularly in diet, which we will discuss at future appointments, along with reassessing symptoms and any improvement from the medication adjustments. The patient agreed to return for a follow-up in two weeks and understands the instructions given. Patient Instructions - Stop taking famotidine and sucralfate as advised. - Start pantoprazole 40 mg daily and continue simethicone as prescribed. - Use dicyclomine PRN for stomach cramping. - Schedule a blood test and abdominal X-ray as discussed. - Await radiology to schedule barium swallow and ultrasound appointments. - Expect scheduling for your endoscopy through our schedulers. - Fast for 8-12 hours before coming in for your lipid blood test. - Visit urology for frequent urinary tract issues as referred. - Return for follow-up appointment in two weeks to review test results and res ponse to new medication regimen. Orders: Orders TSH reflex Free T4 07/03/25 R11.2 - Nausea with vomiting, unspecified, R13.10 - Dysphagia, unspecified, R63.4 - Abnormal weight loss Comprehensive Met. Panel 07/03/25 R11.2 - Nausea with vomiting, unspecified, R13.10 - Dysphagia, unspecified, R63.4 - Abnormal weight loss Lipid Panel 07/03/25 Z13.220 - Encounter for screening for lipoid disorders, Z82.49 - Family history of ischemic heart disease and other diseases of the circulatory system US abdomen complete 07/03/25 R11.2 - Nausea with vomiting, unspecified, R13.10 - Dysphagia, unspecified, R63.4 - Abnormal weight loss UA CC w/rflx Micro + Cult 07/03/25 R11.2 - Nausea with vomiting, unspecified, R13.10 - Dysphagia, unspecified, R63.4 - Abnormal weight loss EGD - GI Use Only 07/03/25 R11.2 - Nausea with vomiting, unspecified, R13.10 - Dysphagia, unspecified, R63.4 - Abnormal weight loss XR abdomen w decubitus 07/03/25 R11.2 - Nausea with vomiting, unspecified, R13.10 - Dysphagia, unspecified, R63.4 - Abnormal weight loss FL barium swallow 07/03/25 R11.2 - Nausea with vomiting, unspecified, R13.10 - Dysphagia, unspecified, R63.4 - Abnormal weight loss Referrals Urology Referral N39.0 - Urinary tract infection, site not specified Medications: New pantoprazole (Protonix) 40 mg PO DAILY 30 tabs 3RF 30 days Refilled simethicone 180 mg PO .TIDAC 90 caps 6RF 30 days R14.0 - Abdominal distension (gaseous) Discontinued famotidine Discontinued Reason: Doctor's Order 40 mg PO BID 60 tabs 6RF K21.9 - Gastro-esophageal reflux disease without esophagitis On Hold sennosides (senna) Hold Comment: Doctor's Order 17.2 mg (2 x 8.6 mg) PO BEDTIME 30 days 60 caps 6RF constipation Coding Level of Care Code Est Pt Level 4 (01400) Diagnoses Gastroesophageal reflux disease without esophagitis K21.9 Esophagitis presence: without esophagitis Constipation K59.00 Irritable bowel syndrome with both constipation and diarrhea K58.2 Nausea and vomiting R11.2 Odynophagia R13.10 Unexplained weight loss R63.4 Family history of cardiac arrest Z82.49 Frequent UTI N39.0 Time Spent (min) 39
[2025-07-03 16:22] VITALS: BP 117/70; PULSE 100; BMI 28.4
== END 2025-07-03 17:41 | disposition home or self-care (01) ==
LOC: HO.HGI 16:12
PROVIDERS: PCP Physician Assistant; Visit Provider Nurse Practitioner
DX: K21.9 Gastro-esophageal reflux disease without esophagitis (principal); K59.00 Constipation, unspecified; K58.2 Mixed irritable bowel syndrome; R11.2 Nausea with vomiting, unspecified; R13.10 Dysphagia, unspecified; R63.4 Abnormal weight loss; Z82.49 Family history of ischemic heart disease and other diseases of the circulatory system; N39.0 Urinary tract infection, site not specified
CPT/HCPCS: 99214

== ENCOUNTER → 2025-07-03 16:11 | Outpatient (BNVA) | payer OTHER, SELFPAY | PROVIDERS: PCP Physician Assistant; Visit Provider Nurse Practitioner | DX: K21.9 Gastro-esophageal reflux disease without esophagitis (principal); K59.00 Constipation, unspecified; R11.2 Nausea with vomiting, unspecified; K58.2 Mixed irritable bowel syndrome; R13.10 Dysphagia, unspecified; R63.4 Abnormal weight loss; Z82.49 Family history of ischemic heart disease and other diseases of the circulatory system; N39.0 Urinary tract infection, site not specified; R14.0 Abdominal distension (gaseous) | CPT/HCPCS: 99212 ==

== ENCOUNTER 2025-11-10 15:29 | Outpatient (AMB) | payer OTHER, SELFPAY ==
--- NOTE | 2025-11-10 15:46 | A.OFFPC_ITS ---
Vital Signs 11/10/25 15:48 Height 6 ft 3 in Weight 233 lb 4 oz BMI 29.2 BP 124/80 Blood Pressure Location Lt brachial Position Sitting Pulse 102 H Pulse Source Pulse Oximeter Temp Source Temporal Artery Scan Pulse Oximetry (%) 99 Oxygen Delivery Method Room Air Intake Visit Reasons: follow up Intake Note: Patient is here to follow up on Letter for retirement. Automation Qa Tester Required: No Cistern Room Operator: Not Required per policy Accompanied by: Self / Same As Patient Allergies Penicillins (PENICILLINS) Allergy (Unknown, Verified 11/10/25 16:11) HIVES AND SWELLING Sulfa (Sulfonamide Antibiotics) Allergy (Unknown, Verified 11/10/25 16:11) Anaphylaxis sulfamethoxazole (From BACTRIM) Allergy (Unknown, Verified 11/10/25 16:11) HALLUCINATIONS/HIVES trimethoprim (From BACTRIM) Allergy (Unknown, Verified 11/10/25 16:11) HALLUCINATIONS/HIVES Medication List - Last Reconciled 11/10/25 by Rodolfo Chirinos PA-C bupropion HCl SR (Wellbutrin SR) 100 mg PO DAILY 90 days cyclobenzaprine 10 mg PO Q8H dicyclomine 20 mg PO QID PRN hydroxyzine HCl 25 mg PO BEDTIME PRN 30 days ibuprofen 600 mg PO Q8H PRN lorazepam 1 mg PO DAILY PRN 14 days meclizine 25 mg PO TID PRN needle (disp) 23 gauge (Hypodermic Cerro) As directed needle (disp) 25 gauge (BD Regular Bevel Cerro) As directed ondansetron 4 mg PO Q8H PRN pantoprazole (Protonix) 40 mg PO DAILY 30 days sennosides (senna) 17.2 mg (2 x 8.6 mg) PO BEDTIME 30 days Held on 07/03/25. Instructions: Doctor's Order sertraline 200 mg (2 x 100 mg) PO DAILY 90 days simethicone 180 mg PO .TIDAC 30 days syringe (disposable) (BD Luer-Grace Syringe) As directed testosterone cypionate 50 mg subcut QWEEK Tobacco use date assessed: 11/10/25 Dental Screening Dental Screen Date: 12/25/24 Did you have a dental visit in the last 12 months?: Yes Did you have a dental problem in the last 6 months where you did not have access to dental care?: No Was dental information given to patient?: Patient has dentist HPI follow up HPI Details Patient is a 35-year-old female here today for a follow-up visit? Patient has a past medical history significant for generalized anxiety disorder, body dysphoria, transgender, GERD, IBS. .. Patient currently living in a homeless retirement. The retirement recently installed bunk beds, and she requires a lower bunk due to medical conditions. 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 She experiences constant numbness and tingling in her fingers, which becomes painful when lying on her back or right side, waking her from sleep. Her symptoms are worse in her right hand, and she states it is painful to climb the metal ladder of the bunk bed. She also has a history of vertigo, for which she takes medication. She experiences vertigo frequently, particularly at work during her 12-hour shifts which involve standing all day, and occasionally in the shower. She is concerned about the risk of falling if required to use a top bunk. Body dysphoria/ transgender: Now want testosterone therapy through a [facility]. Now he feels much more himself. VICKY:? Silverio has increase his Zoloft to 200 mg daily which he feels has worked well for his mental health.? We did discuss the habit-forming nature of lorazepam and he agrees to only use this on a as needed basis. He reports Zoloft is helpful on controlling anxiety though would like another medication to help for better effect. [facility] Medical History Otitis externa Screening for diabetes mellitus (DM) Dysuria Yeast infection of the vagina Cervical cancer screening Hamstring tendinitis Encounter for IUD insertion Breast skin changes Herpes simplex Cough Pharyngitis Family history of breast cancer in mother Tinea pedis Screen for sexually transmitted diseases Vaginal burning Sinusitis Anxiety Surgical History History of D&C History of esophagogastroduodenoscopy (EGD) History of tonsillectomy History of wisdom tooth extraction (~09/2020) Family History Father In good health Mother Breast cancer, Onset Age: 55 Liver cancer Family/Other Stroke Brother No problems noted. Sister In good health Daughter In good health Maternal Grandmother Arthritis Liver cancer Other Family history non-contributory Social History Household Members: Family Housing: Apartment Alcohol intake: current Alcohol intake frequency: holidays/special occasions only Patient Tobacco Use Status: Never used Tobacco e-Cigarette/Vaping Use: Never Used Second Hand Smoke Exposure: No service: No Current occupational status: unemployed Sexual orientation: Lesbian/Morales/Homosexual Cognitive needs: No Hearing needs: No Vision needs: No Female Reproductive History Menstrual Age of Menarche: 12 Questionnaire Thrive Questionnaire Date Thrive assessed: 12/25/24 I am a: Patient What is your living situation today?: I have a steady place to live Within the past 12 months, did the food you bought not last and you didn't have the money to get more?: Never true Within the past 12 months, did you worry whether your food would run out before you got money to buy more?: Never true Do you have trouble paying for medicines?: No Do you have trouble getting transportation to medical appointments?: No Do you have trouble paying your heating and electricity bill?: No Do you have trouble taking care of your child, family member or friend?: No Do you have trouble with day-to-day activities such as bathing, preparing meals, shopping, managing finances, etc.?: No Are you currently unemployed and looking for a job?: Yes Are you interested in more education?: No Currently or been in a relationship where the following occur: No concerns reported THRIVE Score: 0 VICKY-7 AMB Questionnaire VICKY-7 Date VICKY - 7 assessed: 12/25/24 Source: Developed by Drs. David Ku, Cherelle King, Remington Louis and colleagues, with an educational chai from [employer]. Review of Systems Const Denies headache(s) Eyes Denies loss of vision ENT Denies vertigo, Denies dizziness, Denies headache(s) and Denies sore throat Card Denies chest pain, Denies leg edema and Denies lightheadedness Resp Denies cough, Denies hemoptysis and Denies wheezing GI Denies abdominal pain, Denies melena, Denies constipation, Denies diarrhea and Denies vomiting Denies urinary frequency, Denies dysuria and Denies urinary urgency Musc Denies arthralgias, Denies joint swelling, Denies numbness and Denies tingling Neuro Denies Abnormal speech present, Denies behavioral changes, Denies vertigo, Denies dizziness, Denies headache(s), Denies loss of vision, Denies memory loss, Denies numbness and Denies tingling Psych Denies anxiety, Denies behavioral changes, Denies depression, Denies memory loss and Denies panic attacks Miguel/Lymph Denies easy bleeding and Denies easy bruising Aller/Immun Denies wheezing Physical exam (Primary Care) Vital Signs: Last Vital Signs Pulse 102 H 11/10/25 15:48 BP 124/80 11/10/25 15:48 Pulse Ox 99 11/10/25 15:48 Oxygen Delivery Method Room Air 11/10/25 15:48 BMI result Body Mass Index 29.2 Tobacco/Smoking Status: Tobacco use Status Tobacco use date assessed 11/10/25 11/10/25 15:50 Patient Tobacco Use Status Never used Tobacco 11/10/25 15:50 e-Cigarette/Vaping Use Never Used 11/10/25 15:50 Thrive Assessment: Date of Thrive Assessment Date Thrive assessed 12/25/24 11/10/25 15:50 Currently or been in a relationship where the following occur: No concerns reported Const General: healthy appearing, no acute distress, alert and awake Nutritional Appearance: well nourished Orientation/consciousness: oriented to person, oriented to place and oriented to time [facility] Ears: TM's normal bilaterally General nose exam: Normal nasal mucous membranes and turbinates present Eyes Conjunctivae: conjunctivae normal Sclerae: sclerae normal Pupils: Equal, round and reactive pupils present Neck Neck: Yes no lymphadenopathy and Yes no JVD Thyroid: Thyroid normal Carotids: no bruits Resp Effort & Inspection: normal respiratory effort and not tachypneic Auscultation: no crackles, no rales, no rhonchi and no wheezes Cardio Rate: regular rate Rhythm: regular rhythm Heart sounds: no murmurs and normal S1 and S2 GI Palpation (GI): Soft to palpation, nontender, no hepatomegaly and no splenomegaly Auscultation: normal bowel sounds Skin General skin exam: no rashes or lesions noted and dry skin Neuro General: oriented to person, oriented to place and oriented to time Cranial nerves: Yes Equal, round and reactive pupils present Speech: No Abnormal speech present Gait exam (Neuro): Normal gait present Motor exam (neuro): no tremor noted Extrem Right upper extremity: full ROM Left upper extremity: full ROM Right lower extremity: full ROM; no edema Left lower extremity: full ROM; no edema Psych Mental Status: mental status grossly normal Speech and movement: Normal speech and movement present Affect: normal affect Attitude: cooperative Thought process: Normal thought process present Coding Level of Care Code Est Pt Level 4 (25760) Diagnoses Vertigo R42 Bilateral carpal tunnel syndrome G56.03 Acute otitis externa of left ear, unspecified type H60.502 Chronicity: acute Laterality: left Otitis externa type: unspecified type Assessment & Plan Assessment & Plan (1) Vertigo: Code(s): R42 - Dizziness and giddiness Category: Medical Plan: For the patient's vertigo, the fall risk was also documented in the medical letter to support the need for a lower bunk. (2) Bilateral carpal tunnel syndrome: Code(s): G56.03 - Carpal tunnel syndrome, bilateral upper limbs Category: Medical Plan: For the patient's bilateral carpal tunnel syndrome, a medical justification letter was provided for a lower bunk accommodation at her retirement. Conservative management with [id number] wrist splints for nighttime use was recommended. An order for an EMG nerve test will be placed to further assess the condition, and the patient will be contacted by the scheduling department. (3) Otitis externa: Code(s): H60.90 - Unspecified otitis externa, unspecified ear Category: Medical Qualifiers: Chronicity: acute Laterality: left Otitis externa type: unspecified type Qualified Code(s): H60.502 - Unspecified acute noninfective otitis externa, left ear Plan: For the left ear pain, cerumen was removed via irrigation in the office. Due to residual pain and erythema in the ear canal, a prescription for antibiotic ear drops will be sent to [facility]. Orders: Orders NE electromyogram (EMG) 11/10/25 G56.03 - Carpal tunnel syndrome, bilateral upper limbs NE nerve conduction velocity 11/10/25 G56.03 - Carpal tunnel syndrome, bilateral upper limbs Medications: New gabapentin 100 mg PO BID 60 caps 1RF 30 days G56.03 - Carpal tunnel syndrome, bilateral upper limbs ciprofloxacin-dexamethasone 0.3-0.1 % 4 drps otic (ears) BID 7.5 mL 0RF 7 days H60.502 - Unspecified acute noninfective otitis externa, left ear Refilled lorazepam 1 mg PO DAILY PRN 14 tabs 0RF anxiety 14 days F41.1 - Generalized anxiety disorder cyclobenzaprine 10 mg PO Q8H 10 tabs 0RF Muscle spasm G56.03 - Carpal tunnel syndrome, bilateral upper limbs
[2025-11-10 15:48] VITALS: BP 124/80; PULSE 102; O2SAT 99; BMI 29.2
--- OUTSIDE RECORDS SUMMARY | 2025-11-10 16:36 | XMS_ITS | Clinical Summary ---
Author Organization [facility] ity Address [address] [place] [address] Care Team Providers Care Customer Service Agent Name Role Phone Unavailable Primary Care Provider [...] Cervical Cancer Screening: P ap Smear 2011 HPV Vaccines (1 - 3-dose SCD M series) 2017 Cholesterol Screening (Lipid Panel) 10/22/2022 HIV Screening 10/22/2022 Hepatitis C Screening 10/22/2022 Social Influencers of Health Screening 10/22/2022 Depression Screening 11/19/2024 COVID-19 Vaccine (1 - 2024-2 6 season) 2025 Influenza Vaccine (#1) 2025 RSV Immunization Adult Patie nts (1 - 1-dose 75+ series) 2065 HIB [...]
--- OUTSIDE RECORDS SUMMARY | 2025-11-10 16:36 | XMS_ITS | Clinical Summary ---
Author Organization [facility] Address [address] [place] [address] Care Team Providers Care Cardiovascular Tech Name Role Phone Unavailable Primary Care Provider [...] 2020 HPV/Cotest 2020 COVID-19 Vaccine (3 - 2024-2 6 season) 2025 01/10/2022, 12/16/2021 Influenza Vaccine (#1) 2025 Zoster [...]
--- OUTSIDE RECORDS SUMMARY | 2025-11-10 16:36 | XMS_ITS | Clinical Summary ---
Author Organization [facility] Address [address] [place], [place] [address] Phone Care Team Providers Care Blending Machine Operator Name Role Phone Rodolfo Chirinos Primary Care [...] HIV ONE-TIME SCREENING (18-6 5 YEARS) 2008 SCREENING FOR DIABETES 2025 INFLUENZA VACCINE (#1) 2025 COVID-19 VACCINE (2024-2 6 season) 2025 SMOKING STATUS SCREENING (On ce After [...] topic Medical Devices Not on file Insurance [facility] ACO ACO ACO ACO Care Teams Blending Machine Operator Relationship Specialty Start Date End Date Rodolfo Chirinos PA [address] [place] [address] PCP - General Physician Data Entry Analyst 09/30/24 Additional Source Comments The information contained in this document represents components of the legal health record. It is not the complete legal health record.[facility]
--- OUTSIDE RECORDS SUMMARY | 2025-11-10 16:36 | XMS_ITS | Encounter Summary ---
Author Organization [employer] [facility] Address [address] [place] [address] Care Team Providers Care Pelt Grader Name Role Phone Unavailable Primary Care Provider [...]
== END 2025-11-10 16:48 | disposition home or self-care (01) ==
LOC: HO.HMCH 15:30
PROVIDERS: PCP Physician Assistant; Visit Provider Physician Assistant
DX: R42 Dizziness and giddiness (principal); G56.03 Carpal tunnel syndrome, bilateral upper limbs; H60.502 Unspecified acute noninfective otitis externa, left ear

== ENCOUNTER → 2025-11-10 15:29 | Outpatient (BNVA) | payer OTHER, SELFPAY | PROVIDERS: Visit Provider Physician Assistant | DX: G56.03 Carpal tunnel syndrome, bilateral upper limbs (principal); H60.502 Unspecified acute noninfective otitis externa, left ear; R42 Dizziness and giddiness | CPT/HCPCS: 99212 ==